=== PATIENT | female | born 1935 | race Caucasian/White ===

== ENCOUNTER 2016-09-07 15:08 | Observation (INO) ==
[2016-09-07] MEDS ORDERED: Ipratropium/Albuterol Neb 3 ML IH ONE (18:32)
[2016-09-07] MEDS ORDERED: methylPREDNISolone 125 MG/2 ML VIAL IV ONE (19:24)
[2016-09-07] MEDS ORDERED: Levofloxacin 750 MG/150 ML 750 MG/150 ML BAG IVPB ONE (19:24)
[2016-09-07 20:02] LABS: Basophils % 0.3 %; Eosinophils # 0.1 K/mcL (0.0-0.6); Eosinophils % 0.5 %; Hematocrit 44.8 % (35.3-44.9); Hemoglobin 14.5 g/dL (11.5-15.4); Immature Granulocytes % 0.8 % (0-4); Lymphocytes # 2.7 K/mcL (0.6-4.6); Lymphocytes % 24.8 %; Mean Corpuscular HGB Conc 32.4 g/dL (31.6-35.5); Mean Corpuscular Hemoglobin 27.9 pg (28.0-33.3); Mean Corpuscular Volume 86.3 fL (83.0-100.0); Mean Platelet Volume 10.8 fL (9.4-12.4); Monocytes # 1.1 K/mcL (0.0-1.3); Monocytes % 9.8 %; Neutrophils # 6.9 K/mcL (1.6-8.9); Platelet Count 297 K/mcL (140-400); Red Blood Count 5.19 M/mcL (3.82-4.97); Red Cell Distribution Width 13.6 % (11.5-14.5); Segmented Neutrophils % 63.8 %
[2016-09-07 20:10] LABS: INR 1.2; Prothrombin Time 12.6 Seconds (9.4-12.1)
[2016-09-07 20:13] LABS: Activated Partial Thrombo Time 27.4 Seconds (26.0-36.0)
[2016-09-07 20:16] LABS: Calcium 9.1 mg/dL (8.6-10.8)
[2016-09-07 20:17] LABS: Potassium 3.9 mEq/L (3.5-4.5)
--- NOTE | 2016-09-07 20:27 | Emergency Department Note ---
Disposition Clinical Impression: Acute exacerbation of chronic obstructive airways disease, Wheezing on auscultation, Influenza due to influenza virus, type B Disposition: Admitted As Inpatient Condition: Good Referrals: Jacob Bernstein MD [Primary Care Provider] - Forms: ED Satisfaction Letter SOB HPI - General Chief Complaint: ED Shortness of Breath/Dyspnea Stated Complaint: Flu,Congestion Time Seen by Provider: 09/07/16 18:32 Source: patient Limitations: no limitations Nursing Notes Reviewed: Yes Vital Signs Reviewed: Yes - History of Present Illness Patient is a 81-year-old female with a history of COPD presents with worsening symptoms for the last several days. On September 01 she was diagnosed with influenza B was prescribed Tamiflu and sent home. She continues to use reading treatments she does not have home oxygen she has had increasing shortness of breath cough and wheezing Onset (ago): day(s) (6) Context: recent illness Severity: moderate Consistency/Duration: constant, gradually worsening Improves with: rest, bronchodilators Worsens with: exertion Known history of: COPD Associated symptoms: Reports: cough, wheezing. Denies: chest pain, fever, sputum production, nausea/vomiting - Related Data Home Medications Medication Instructions Recorded Confirmed Clopidogrel 75 mg PO 09/01/16 Meclizine 25 mg PO 09/01/16 Nitrostat 09/01/16 Pravastatin Sodium 80 mg PO 09/01/16 Synthroid 75 mg PO 09/01/16 Temazepam 15 mg PO 09/01/16 Verapamil 240 mg PO 09/01/16 Previous Rx's Medication Instructions Recorded Guaifenesin/Codeine Phosphate 5 - 10 ml PO Q4-6H PRN #120 ml 09/01/16 [Guaifen-Codeine 100-10 mg/5 ml] Ipratropium/Albuterol Neb [Duoneb] 3 ml IH Q6H PRN #50 vial.neb 09/01/16 Nebulizer Accessories [Pillow Mask] 1 each MC PRN PRN #1 each 09/01/16 Oseltamivir [Tamiflu] 75 mg PO BID #10 capsule 09/01/16 Allergies Allergy/AdvReac Type Severity Reaction Status Date / Time Oxycodone [From OxyContin] AdvReac Hallucinati Verified 09/01/16 14:33 ng All systems ED: reviewed and negative except as stated. Constitutional: Denies: fever, chills Cardiovascular: Denies: chest pain Respiratory: Reports: cough Past Medical History - Past Medical History Source: patient, old records reviewed, obtained from family, nursing notes reviewed Medical history: Reports: coronary artery disease, hyperlipidemia, hypertension , thyroid disease Psychiatric history: Reports: no psych history - Social History Smoking Status: Current every day smoker Smokeless Tobacco Status: No Alcohol use: Reports: none Drug use: Reports: none Physical Exam - General Limitations: no limitations General appearance: alert, in no apparent distress - Head Head exam: atraumatic, normocephalic, normal inspection - Eye Eye exam: Present: normal appearance, PERRL, EOMI - Expanded Eye Exam Pupils: Left: reactive - ENT ENT exam: normal exam, normal oropharynx, mucous membranes moist - Expanded ENT Exam External ear exam: Present: normal external inspection Mouth exam: Present: normal external inspection Teeth exam: Present: normal inspection Throat exam: Present: normal inspection - Neck Neck exam: Present: normal inspection, full ROM, trachea midline - Chest Chest inspection: Present: normal inspection, symmetric chest wall rise - Respiratory Respiratory exam: Present: wheezes (Or wheezes and coarse rhonchi with a productive cough) - Cardiovascular Cardiovascular exam: Present: regular rate, normal rhythm, normal heart sounds - Abdominal Exam Abdominal exam: Present: soft, Non-Tender. Absent: tenderness, distention, guarding, rebound, rigidity - Extremities Exam Extremities exam: Present: normal inspection, full ROM. Absent: tenderness, pedal edema - Expanded Upper Extremity Exam Shoulder exam: Present: normal inspection, full ROM Arm exam: Present: normal inspection, full ROM Elbow exam: Present: normal inspection, full ROM Forearm/Wrist exam: Present: normal inspection, full ROM Hand exam: Present: normal inspection, full ROM Vascular exam: Normal: capillary refill, radial pulse - Expanded Lower Extremity Exam Hip/Pelvis exam: Present: normal inspection, full ROM Upper leg exam: Present: normal inspection, full ROM Knee exam: Present: normal inspection, full ROM Lower leg exam: Present: normal inspection, full ROM Ankle exam: Present: normal inspection, full ROM Foot/toe exam: Present: normal inspection, full ROM Neurovascular/Tendon exam: Absent: motor deficit, sensory deficit, tendon deficit - Back Exam Back exam: Present: normal inspection, full ROM. Absent: tenderness - Neurological Exam Neurological exam: Present: alert, oriented X3 - Expanded Neurological Exam Patient oriented to: Present: person, place, time Coma Scale Eye Opening: Spontaneous Coma Scale Motor Response: Obeys Commands Coma Scale Verbal Response: Oriented Coma Scale Total: 15 - Psychiatric Psychiatric exam: Present: normal affect, normal mood - Skin Skin exam: Present: warm, dry, intact, normal color Course Vital Signs Temperature 98.1 F 09/07/16 16:16 Pulse Rate 87 09/07/16 16:16 Respiratory Rate 18 09/07/16 16:16 Blood Pressure 166/84 09/07/16 16:16 O2 Sat by Pulse Oximetry 98 09/07/16 16:16 Temperature 98.1 F 09/07/16 16:16 Pulse Rate 87 09/07/16 16:16 Respiratory Rate 18 09/07/16 18:40 Blood Pressure 166/84 09/07/16 16:16 O2 Sat by Pulse Oximetry 108 H 09/07/16 18:40 Oxygen Delivery Oxygen Delivery Room Air Shortness of Breath/Dyspnea - Differential Diagnosis Likely: acute exacerbation of chronic obstructive airways disease, congestive heart failure, pneumonia, pulmonary embolism, arrhythmia - Medical Records Medical records reviewed: Yes I reviewed the patient's medical records. - Lab Data Lab results reviewed: Yes I reviewed the patient's lab results. Result diagrams: 09/07/16 19:40 09/07/16 19:40 Lab Results 09/07/16 09/07/16 09/07/16 Range/Units 19:40 19:40 19:40 WBC 10.7 (4.3-11.1) K/mcL RBC 5.19 H (3.82-4.97) M/mcL Hgb 14.5 (11.5-15.4) g/dL Hct 44.8 (35.3-44.9) % MCV 86.3 (83.0-100.0) fL MCH 27.9 L (28.0-33.3) pg MCHC 32.4 (31.6-35.5) g/dL RDW 13.6 (11.5-14.5) % Plt Count 297 (140-400) K/mcL MPV 10.8 (9.4-12.4) fL Immature Gran % 0.8 (0-4) % Seg Neutrophils % 63.8 % Lymphocytes % 24.8 % Monocytes % 9.8 % Eosinophils % 0.5 % Basophils % 0.3 % Neutrophils # 6.9 (1.6-8.9) K/mcL Lymphocytes # 2.7 (0.6-4.6) K/mcL Monocytes # 1.1 (0.0-1.3) K/mcL Eosinophils # 0.1 (0.0-0.6) K/mcL Basophils # 0.0 (0.0-0.2) K/mcL PT (9.4-12.1) Seconds INR APTT (26.0-36.0) Seconds Sodium 140 (136-145) mEq/L Potassium 3.9 (3.5-4.5) mEq/L Chloride 106 (98-109) mEq/L Carbon Dioxide 19 (19-29) mEq/L BUN 23 H (7-20) mg/dL Creatinine 1.28 H (0.57-1.11) mg/dL Est GFR ( Amer) 48 L (> 60) Est GFR (Non-Af Amer) 40 L (> 60) BUN/Creatinine Ratio 18 (6-26) Glucose 109 H (70-99) mg/dL Calculated Osmolality 294 (280-300) Calcium 9.1 (8.6-10.8) mg/dL Troponin I 0.01 (0-0.03) ng/mL B-Natriuretic Peptide (0-100) pg/mL 09/07/16 09/07/16 Range/Units 19:40 19:40 WBC (4.3-11.1) K/mcL RBC (3.82-4.97) M/mcL Hgb (11.5-15.4) g/dL Hct (35.3-44.9) % MCV (83.0-100.0) fL MCH (28.0-33.3) pg MCHC (31.6-35.5) g/dL RDW (11.5-14.5) % Plt Count (140-400) K/mcL MPV (9.4-12.4) fL Immature Gran % (0-4) % Seg Neutrophils % % Lymphocytes % % Monocytes % % Eosinophils % % Basophils % % Neutrophils # (1.6-8.9) K/mcL Lymphocytes # (0.6-4.6) K/mcL Monocytes # (0.0-1.3) K/mcL Eosinophils # (0.0-0.6) K/mcL Basophils # (0.0-0.2) K/mcL PT 12.6 H (9.4-12.1) Seconds INR 1.2 APTT 27.4 (26.0-36.0) Seconds Sodium (136-145) mEq/L Potassium (3.5-4.5) mEq/L Chloride (98-109) mEq/L Carbon Dioxide (19-29) mEq/L BUN (7-20) mg/dL Creatinine (0.57-1.11) mg/dL Est GFR ( Amer) (> 60) Est GFR (Non-Af Amer) (> 60) BUN/Creatinine Ratio (6-26) Glucose (70-99) mg/dL Calculated Osmolality (280-300) Calcium (8.6-10.8) mg/dL Troponin I (0-0.03) ng/mL B-Natriuretic Peptide 25 (0-100) pg/mL - Radiology Data Radiology results reviewed: Yes I reviewed the patient's radiology results. - EKG Data EKG attestation: Yes I reviewed and interpreted this EKG. EKG shows normal: Reports: sinus rhythm Rate: Reports: tachycardia (110) Interpretation: Reports: nonspecific ST-T wave changes
[2016-09-07] MEDS ORDERED: Naloxone 0.4 MG/ML INJ IVP PRN (23:13)
[2016-09-07] MEDS ORDERED: Ibuprofen 400 MG TABLET PO PRN (23:13)
[2016-09-07] MEDS ORDERED: Ondansetron ODT 4 MG TAB.RAPDIS SL PRN (23:13)
[2016-09-07] MEDS ORDERED: Nitroglycerin 0.4 MG TAB.SUBL SL PRN (23:16)
[2016-09-07] MEDS ORDERED: Albuterol 2.5 MG/3 ML NEBULIZER IH PRN (23:19)
--- NOTE | 2016-09-07 23:33 | Internal Med History&Physical ---
Date of Encounter: 09/07/16 Time of Encounter: 23:27 Assessment and Plan (1) Acute exacerbation of chronic obstructive airways disease Current visit: Yes Status: Acute Patient with increasing shortness of breath, cough and wheezing over the last week. She was diagnosed with Influenza B at an urgent care on 09/01 and completed her course of Tamiflu. She has a diagnosis of COPD and continued to smoke up until she became ill with the flu last week. Solu medrol 60mg IVP BID duoneb treatments QIDR Albuterol nebulizer Q2hr PRN Levaquin IVPB daily (2) Acute kidney injury Current visit: Yes Status: Acute BUN/Cr of 23/1.28, Creatinine baseline is 0.9. This is likely due to poor oral intake and dehydration. Will hydrate with 0.9NS at 100mL/hr overnight and recheck chemistry in the morning. (3) Dehydration Current visit: Yes Status: Acute Patient reports poor appetite and poor oral intake over the last week. BUN/Cr 23/1.28. Will hydrate with 0.9NS at 100mL/hr. (4) DVT prophylaxis Current visit: Yes Status: Acute Encourage ambulation anti-embolic stockings lovenox 40mg SQ daily Internal Medicine - H&P: HPI Chief complaint: shortness of breath Admitted From: Emergency Dept Plans for Post Hospital Care: Home History of present illness: Ms. Ellington is a 81 year old female with history of coronary artery disease, hypertension, hyperlipidemia, hypothyroid, COPD who presented to the emergency department today with complaints of increasing shortness of breath cough and wheezing. She was seen in the urgent care a week ago on September 01 and was diagnosed with influenza B, she completed her course of Tamiflu, unfortunately her symptoms of coughing and shortness of breath have increased over the last week. She reports she has had fever and chills on and off, her appetite is poor , and she has had some nausea. She denies any chest pain, palpitations, headache, vomiting, or diarrhea. Evaluation in the emergency department included a chest x-ray which showed no acute process, EKG showed sinus tachycardia with heart rate of 110, troponin was negative at 0.01, BNP was negative at 25. Count was normal at 10.7. She had mild acute kidney injury with creatinine of 1.28 BUN of 23, likely due to dehydration and poor oral intake. She does not require oxygen at home, she was satting 92% on room air on presentation. On exam, she is alert and oriented, in no acute distress. Heart has regular rate and rhythm. Lungs with diffuse rhonchi bilaterally. Past Med Surg Social Fam HX - Past Medical History Medical history: COPD, coronary artery disease, hyperlipidemia, hypertension, thyroid disease Psychiatric history: no psych history - Past Surgical History Surgical History: hysterectomy, knee replacement - Social History Smoking Status: Former smoker (quit 09/01/2016) Smokeless Tobacco Status: No Alcohol use: none Drug use: none - Family History Mother Living Status: Cause of : breast cancer Father Age: 60 Living Status: Cause of : stroke Internal Medicine - H&P: Meds Acetaminophen [Tylenol] 500 mg PO HS 09/07/16 [History] Clopidogrel [Plavix] 75 mg PO DAILY 09/07/16 [History] Ezetimibe [Zetia] 10 mg PO DAILY 09/07/16 [History] Levothyroxine Sodium 75 mcg PO QAM 09/07/16 [History] Nitroglycerin [Nitrostat] 0.4 mg SL Q5M PRN 09/07/16 [History] Pravastatin Sodium [Pravastatin Sodium] 80 mg PO DAILY 09/07/16 [History] Temazepam [Temazepam] 30 mg PO HS 09/07/16 [History] Verapamil ER (24 HR) [Calan SR] 240 mg PO DAILY 09/07/16 [History] Allergies Oxycodone [From OxyContin] Adverse Reaction (Verified 09/01/16 14:33) Hallucinating All Systems PM: A 10-system review of systems was performed and is negative for pertinent findings except as documented above in the HPI. - Constitutional Constitutional: chills, fatigue, fever(s), no night sweats - EENT Eyes: no change in vision, no discharge, no pain, no photophobia Ears: no ear discharge, no ear pain, no tinnitus Nose, mouth and throat: nasal discharge, no dysphagia, no neck pain, no sore throat - Cardiovascular Cardiovascular ROS IM: dyspnea, no chest pain, no diaphoresis, no lightheadedness, no palpitations, no syncope - Respiratory Respiratory: cough, dyspnea, dyspnea on exertion, wheezing, excessive phlegm production - Gastrointestinal Gastrointestinal: no abdominal pain, no diarrhea, no hematemesis, no hematochezia, no melena, no nausea, no vomiting - Genitourinary Genitourinary: no change in urinary stream, no dysuria, no flank pain, no hematuria - Musculoskeletal Musculoskeletal ROS IM: no numbness, no tingling - Integumentary Integumentary IM: no rash, no unusual bruising - Neurological Neurological ROS: no confusion, no convulsions, no focal weakness, no numbness, no tingling, no tremor(s) - Hematologic/Lymphatic Hematologic/Lymphatic: no easy bruising - Constitutional Vitals: Temp Pulse Resp BP Pulse Ox 98.1 F 97 18 146/78 92 L 09/07/16 21:54 09/07/16 21:54 09/07/16 21:54 09/07/16 21:54 09/07/16 21:54 General appearance: Present: A&O X 3, no acute distress - Head Head exam: Present: atraumatic, normocephalic - Eye Eye exam: Present: PERRL, conjuntiva pink, sclera anicteric Pupils: Present: PERRL - Neck Neck exam general surgery: Present: supple, trachea midline. Absent: lymphadenopathy - Respiratory Respiratory exam: Present: rhonchi, wheezes. Absent: accessory muscle use, rales - Cardiovascular Cardiovascular exam: Present: RRR, +S1, +S2. Absent: diastolic murmur, gallop, rubs, systolic murmur - GI/Abdominal GI/Abdominal exam: Present: normal bowel sounds, soft, no peritoneal signs. Absent: distended, tenderness - Extremities Exam Extremities exam: Present: warm, radial pulses palpable and symetrical. Absent : calf tenderness, cyanotic, pedal edema - Neurological Exam Neurological exam: Present: CN II-XII intact, oriented X3, no focal deficits. Absent: facial droop, speech deficit - Skin Skin exam: Present: dry, intact Internal Med - H&P Results - Labs CBC & Chem 7: 09/07/16 19:40 09/07/16 19:40 Labs: All Lab Results (24 Hours) 09/07/16 09/07/16 09/07/16 Range/Units 19:40 19:40 19:40 WBC 10.7 (4.3-11.1) K/mcL RBC 5.19 H (3.82-4.97) M/mcL Hgb 14.5 (11.5-15.4) g/dL Hct 44.8 (35.3-44.9) % MCV 86.3 (83.0-100.0) fL MCH 27.9 L (28.0-33.3) pg MCHC 32.4 (31.6-35.5) g/dL RDW 13.6 (11.5-14.5) % Plt Count 297 (140-400) K/mcL MPV 10.8 (9.4-12.4) fL Immature Gran % 0.8 (0-4) % Seg Neutrophils % 63.8 % Lymphocytes % 24.8 % Monocytes % 9.8 % Eosinophils % 0.5 % Basophils % 0.3 % Neutrophils # 6.9 (1.6-8.9) K/mcL Lymphocytes # 2.7 (0.6-4.6) K/mcL Monocytes # 1.1 (0.0-1.3) K/mcL Eosinophils # 0.1 (0.0-0.6) K/mcL Basophils # 0.0 (0.0-0.2) K/mcL PT (9.4-12.1) Seconds INR APTT (26.0-36.0) Seconds Sodium 140 (136-145) mEq/L Potassium 3.9 (3.5-4.5) mEq/L Chloride 106 (98-109) mEq/L Carbon Dioxide 19 (19-29) mEq/L BUN 23 H (7-20) mg/dL Creatinine 1.28 H (0.57-1.11) mg/dL Est GFR ( Amer) 48 L (> 60) Est GFR (Non-Af Amer) 40 L (> 60) BUN/Creatinine Ratio 18 (6-26) Glucose 109 H (70-99) mg/dL Calculated Osmolality 294 (280-300) Calcium 9.1 (8.6-10.8) mg/dL Troponin I 0.01 (0-0.03) ng/mL B-Natriuretic Peptide (0-100) pg/mL 09/07/16 09/07/16 Range/Units 19:40 19:40 WBC (4.3-11.1) K/mcL RBC (3.82-4.97) M/mcL Hgb (11.5-15.4) g/dL Hct (35.3-44.9) % MCV (83.0-100.0) fL MCH (28.0-33.3) pg MCHC (31.6-35.5) g/dL RDW (11.5-14.5) % Plt Count (140-400) K/mcL MPV (9.4-12.4) fL Immature Gran % (0-4) % Seg Neutrophils % % Lymphocytes % % Monocytes % % Eosinophils % % Basophils % % Neutrophils # (1.6-8.9) K/mcL Lymphocytes # (0.6-4.6) K/mcL Monocytes # (0.0-1.3) K/mcL Eosinophils # (0.0-0.6) K/mcL Basophils # (0.0-0.2) K/mcL PT 12.6 H (9.4-12.1) Seconds INR 1.2 APTT 27.4 (26.0-36.0) Seconds Sodium (136-145) mEq/L Potassium (3.5-4.5) mEq/L Chloride (98-109) mEq/L Carbon Dioxide (19-29) mEq/L BUN (7-20) mg/dL Creatinine (0.57-1.11) mg/dL Est GFR ( Amer) (> 60) Est GFR (Non-Af Amer) (> 60) BUN/Creatinine Ratio (6-26) Glucose (70-99) mg/dL Calculated Osmolality (280-300) Calcium (8.6-10.8) mg/dL Troponin I (0-0.03) ng/mL B-Natriuretic Peptide 25 (0-100) pg/mL
[2016-09-08] MEDS: Ipratropium/Albuterol Neb 3 ML IH SCH ×5 (00:16→22:01)
[2016-09-08] MEDS: Temazepam 15 MG CAPSULE PO SCH ×2 (01:08→20:04)
[2016-09-08] MEDS: 0.9 % Sodium Chloride 1,000 ML IVC SCH ×2 (01:21→13:40)
--- NOTE | 2016-09-08 03:05 | Event Note ---
Date of Encounter: 09/08/16 Time of Encounter: 02:38 Patients examined with nurse practitioner. Patients recently treated with Tamiflu for influenza. Continues to have productive cough shortness of breath and chest wheezing. Patient has acute bronchitis and exacerbation of her COPD. Will give IV steroids [id number] nebulizer treatment and Levaquin for acute bronchitis as she is a COPDer.
[2016-09-08] MEDS: MethylPREDNISolone 40 MG/ML VIAL IVP SCH ×3 (03:22→20:02)
[2016-09-08 05:30] LABS: Basophils % 0.1 %; Hematocrit 41.8 % (35.3-44.9); Hemoglobin 13.2 g/dL (11.5-15.4); Immature Granulocytes % 0.8 % (0-4); Lymphocytes # 0.9 K/mcL (0.6-4.6); Lymphocytes % 11.1 %; Mean Corpuscular HGB Conc 31.6 g/dL (31.6-35.5); Mean Corpuscular Hemoglobin 27.4 pg (28.0-33.3); Mean Corpuscular Volume 86.7 fL (83.0-100.0); Mean Platelet Volume 10.6 fL (9.4-12.4); Monocytes # 0.2 K/mcL (0.0-1.3); Monocytes % 2.2 %; Neutrophils # 6.8 K/mcL (1.6-8.9); Platelet Count 275 K/mcL (140-400); Red Blood Count 4.82 M/mcL (3.82-4.97); Red Cell Distribution Width 13.5 % (11.5-14.5); Segmented Neutrophils % 85.8 %
[2016-09-08 05:55] LABS: Calcium 8.2 mg/dL (8.6-10.8); Potassium 4.2 mEq/L (3.5-4.5)
[2016-09-08] MEDS: *HR* Heparin 5,000 UNIT/ML VIAL SQ SCH ×2 (05:56→20:03)
[2016-09-08] MEDS ORDERED: methylPREDNISolone 125 MG/2 ML VIAL IVP SCH (06:00)
[2016-09-08] MEDS ORDERED: *HR* Enoxaparin 40 MG/0.4 ML SYRINGE SQ SCH (07:00)
[2016-09-08] MEDS ORDERED: Levofloxacin 750 MG/150 ML 750 MG/150 ML BAG IVPB SCH (09:00)
[2016-09-08] MEDS: (Ezetimibe [Zetia] 10 MG) PO SCH (11:08)
[2016-09-08] MEDS: Verapamil ER (24 HR) 240 MG TABLET.ER PO SCH (11:18)
--- NOTE | 2016-09-08 13:50 | Electrocardiograph Report ---
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
--- NOTE | 2016-09-08 14:38 | Internal Med Progress Note ---
<Michele Donovan - Last Filed: 09/08/16 14:35> Date of Encounter: 09/08/16 Time of Encounter: 14:35 - Assessment and plan (1) Acute exacerbation of chronic obstructive airways disease Current Visit: Yes Status: Acute Assessment and plan: Secondary to influenza, type B. Patient had received Tamiflu one week ago. Since then her shortness of breath and productive cough have worsened. History of tobacco abuse. Patient says she quit 10 days ago. Continue DuoNeb's, Solu-Medrol, Levaquin. On Room air O2 is 94%. Possible d/c tomorrow continue cardiac diet. (2) Acute kidney injury Current Visit: Yes Status: Acute Assessment and plan: most likely 2nd to dehydration. Patient says her appetite has been decreased due to cough and she has had lots of nausea with oral intake. Zofran prn for nausea. Baseline scr 1.0 presented with Scr of 1.28 Improved to 1.19 with IVF. Will continue IVF cardiac diet. BMP in morning. Retreperitoneal US. (3) Influenza due to influenza virus, type B Current Visit: Yes Status: Acute Assessment and plan: Went to urgent care 7 dyas ago and was diagnosed with influenza type B has received tamiflu we can d/c respiratory precautions continue IVF zofran for nausea (4) CAD (coronary artery disease) Current Visit: Yes Status: Chronic Assessment and plan: Patient denies chest pain. History of coronary disease. Troponin normal. We will continue Plavix, statin, verapamil. Qualifiers: Coronary Disease-Associated Artery/Lesion type: [place] artery [place] vs. transplanted heart: [place] heart Associated angina: without angina Qualified Code(s): I25.10 - Atherosclerotic heart disease of [place] coronary artery without angina pectoris (5) Hypothyroidism Current Visit: Yes Status: Chronic Assessment and plan: Controlled. Continue levothyroxine. Qualifiers: Hypothyroidism type: acquired Qualified Code(s): E03.9 - Hypothyroidism, unspecified (6) Hypertension Current Visit: Yes Status: Chronic Assessment and plan: Controlled. Continue verapamil. Qualifiers: Hypertension type: essential hypertension Qualified Code(s): I10 - Essential (primary) hypertension (7) DVT prophylaxis Current Visit: Yes Status: Acute Assessment and plan: continue heparin. - Subjective Interval history: 81-year-old female admitted for COPD exacerbation secondary to influenza. Since being admitted patient says her shortness of breath is improved. She still complains of having productive cough. She also complains of decreased appetite and nausea associated with her cough. She denies chest pain, abdominal pain, diarrhea. - Constitutional Vitals: Temp Pulse Resp BP Pulse Ox 97.8 F 100 17 149/73 94 L 09/08/16 12:27 09/08/16 12:27 09/08/16 12:27 09/08/16 12:27 09/08/16 12:27 General appearance: Present: A&O X 3, no acute distress, answers questions appropriately - Respiratory Respiratory exam: Present: decreased breath sounds, rhonchi (Worse on right lung field), wheezes. Absent: accessory muscle use, rales - Cardiovascular Cardiovascular exam: Present: +S1, +S2, tachycardia - GI/Abdominal GI/Abdominal exam: Present: normal bowel sounds, soft, no peritoneal signs. Absent: distended, tenderness - Extremities Exam Extremities exam: Present: warm, radial pulses palpable and symetrical. Absent : calf tenderness, cyanotic, pedal edema Internal Medicine: Result - Labs CBC & Chem 7: 09/08/16 05:16 09/08/16 05:16 Labs: Short CBC 09/08/16 Range/Units 05:16 WBC 7.9 (4.3-11.1) K/mcL Hgb 13.2 (11.5-15.4) g/dL Hct 41.8 (35.3-44.9) % Plt Count 275 (140-400) K/mcL Neutrophils # 6.8 (1.6-8.9) K/mcL BMP 09/08/16 05:16 Sodium 140 Potassium 4.2 Chloride 107 Carbon Dioxide 22 BUN 22 H Creatinine 1.19 H Glucose 166 H Calcium 8.2 L - ABG Interpretation ABG results: PT/INR, D-dimer PT 12.6 Seconds (9.4-12.1) H 09/07/16 19:40 - VTE Documentation of Mechanical Device: Graduated compression elastic hosiery Consult Discharge Plan - Plan Referrals: Jacob Bernstein MD [Primary Care Provider] - 01/26/17 9:20 am <Arnold Rodriguez - Last Filed: 09/08/16 17:20> - Constitutional Vitals: Temp Pulse Resp BP Pulse Ox 97.8 F 100 17 149/73 94 L 09/08/16 12:27 09/08/16 12:27 09/08/16 12:27 09/08/16 12:27 09/08/16 12:27 Internal Medicine: Result - Labs CBC & Chem 7: 09/08/16 05:16 09/08/16 05:16 Labs: Short CBC 09/08/16 Range/Units 05:16 WBC 7.9 (4.3-11.1) K/mcL Hgb 13.2 (11.5-15.4) g/dL Hct 41.8 (35.3-44.9) % Plt Count 275 (140-400) K/mcL Neutrophils # 6.8 (1.6-8.9) K/mcL BMP 09/08/16 05:16 Sodium 140 Potassium 4.2 Chloride 107 Carbon Dioxide 22 BUN 22 H Creatinine 1.19 H Glucose 166 H Calcium 8.2 L - ABG Interpretation ABG results: PT/INR, D-dimer PT 12.6 Seconds (9.4-12.1) H 09/07/16 19:40 - Attending Attestation I examined this patient and my medical decision-making was reviewed with the BLACK PULLER/PA/Advanced Practice Nurse/Resident Physician. I agree with the documented findings, disposition and treatment plan as described except to the extent set forth below 81 year old female with history of coronary artery disease, hypertension, hyperlipidemia, hypothyroid, COPD Patient is admitted and being managed for COPDE, MITUL She is seen at bedside with resident, states she is making adequate urine She denies new complains Physical exam remarkable for diffuse coarse breath sounds, not wheezing at time of review Plan: Continue IVF Monitor Chem, Obain renal USS, Encourage smoking cessation. Continue current management, taper steroids from a.m Resume home meds Rest as in resident's notes, plan of care discussed with patient, verbalized understanding
[2016-09-09] MEDS: MethylPREDNISolone 40 MG/ML VIAL IVP SCH (03:43)
[2016-09-09] MEDS: Ipratropium/Albuterol Neb 3 ML IH SCH ×4 (04:25→22:34)
[2016-09-09 06:46] LABS: Basophils % 0.1 %; Hematocrit 38.5 % (35.3-44.9); Hemoglobin 12.4 g/dL (11.5-15.4); Immature Granulocytes % 0.9 % (0-4); Immature Platelets 8.8 % (1.1-6.1); Lymphocytes # 1.4 K/mcL (0.6-4.6); Lymphocytes % 8.1 %; Mean Corpuscular HGB Conc 32.2 g/dL (31.6-35.5); Mean Corpuscular Hemoglobin 27.9 pg (28.0-33.3); Mean Corpuscular Volume 86.5 fL (83.0-100.0); Mean Platelet Volume 11.1 fL (9.4-12.4); Monocytes # 0.8 K/mcL (0.0-1.3); Monocytes % 4.8 %; Platelet Count 328 K/mcL (140-400); Red Blood Count 4.45 M/mcL (3.82-4.97); Red Cell Distribution Width 13.5 % (11.5-14.5); Segmented Neutrophils % 86.1 %
[2016-09-09 06:47] LABS: Neutrophils # 14.6 K/mcL (1.6-8.9)
[2016-09-09] MEDS: *HR* Heparin 5,000 UNIT/ML VIAL SQ SCH ×2 (06:50→17:51)
[2016-09-09 07:01] LABS: Potassium 3.5 mEq/L (3.5-4.5)
[2016-09-09 07:02] LABS: Calcium 8.1 mg/dL (8.6-10.8)
[2016-09-09 08:38] LABS: Basophils % 0.1 %; Hematocrit 39.3 % (35.3-44.9); Hemoglobin 12.7 g/dL (11.5-15.4); Immature Granulocytes % 1.8 % (0-4); Lymphocytes # 1.6 K/mcL (0.6-4.6); Lymphocytes % 8.6 %; Mean Corpuscular HGB Conc 32.3 g/dL (31.6-35.5); Mean Corpuscular Hemoglobin 28.1 pg (28.0-33.3); Mean Corpuscular Volume 86.9 fL (83.0-100.0); Mean Platelet Volume 10.6 fL (9.4-12.4); Monocytes % 5.5 %; Neutrophils # 15.6 K/mcL (1.6-8.9); Platelet Count 349 K/mcL (140-400); Red Blood Count 4.52 M/mcL (3.82-4.97); Red Cell Distribution Width 13.5 % (11.5-14.5)
[2016-09-09 08:48] LABS: Calcium 8.3 mg/dL (8.6-10.8); Potassium 3.6 mEq/L (3.5-4.5)
[2016-09-09] MEDS ORDERED: levoFLOXacin 500 MG TABLET PO SCH (09:00)
[2016-09-09] MEDS: Verapamil ER (24 HR) 240 MG TABLET.ER PO SCH (09:06)
[2016-09-09] MEDS: predniSONE 20 MG TABLET PO SCH (09:06)
[2016-09-09] MEDS: (Ezetimibe [Zetia] 10 MG) PO SCH (09:06)
--- NOTE | 2016-09-09 13:26 | Internal Med Progress Note ---
<Michele Donovan - Last Filed: 09/09/16 13:04> Date of Encounter: 09/09/16 Time of Encounter: 13:04 - Assessment and plan (1) Acute exacerbation of chronic obstructive airways disease Current Visit: Yes Status: Acute Assessment and plan: Secondary to influenza, type B. Patient had received Tamiflu one week ago. Since then her shortness of breath and productive cough have worsened. History of tobacco abuse. Patient says she quit 10 days ago. Continue DuoNeb's, Solu-Medrol, Levaquin. On Room air O2 is 94%. continue cardiac diet. Patient had new onset of leukocytosis. Most likley 2nd to corticosteroid therapy. CBC tomorrow. (2) Acute kidney injury Current Visit: Yes Status: Acute Assessment and plan: most likely 2nd to dehydration. Patient says her appetite has been decreased due to cough and she has had lots of nausea with oral intake. Zofran prn for nausea. Baseline scr 1.0 presented with Scr of 1.28 wrosened from 1.19 to 1.26 Will continue IVF cardiac diet. BMP in morning. Retreperitoneal US wnl. (3) Influenza due to influenza virus, type B Current Visit: Yes Status: Acute Assessment and plan: Went to urgent care 7 dyas ago and was diagnosed with influenza type B has received tamiflu we can d/c respiratory precautions continue IVF zofran for nausea (4) CAD (coronary artery disease) Current Visit: Yes Status: Chronic Assessment and plan: Patient denies chest pain. History of coronary disease. Troponin normal. We will continue Plavix, statin, verapamil. Qualifiers: Coronary Disease-Associated Artery/Lesion type: [place] artery [place] vs. transplanted heart: [place] heart Associated angina: without angina Qualified Code(s): I25.10 - Atherosclerotic heart disease of [place] coronary artery without angina pectoris (5) Hypothyroidism Current Visit: Yes Status: Chronic Assessment and plan: Controlled. Continue levothyroxine. Qualifiers: Hypothyroidism type: acquired Qualified Code(s): E03.9 - Hypothyroidism, unspecified (6) Hypertension Current Visit: Yes Status: Chronic Assessment and plan: Controlled. Continue verapamil. Qualifiers: Hypertension type: essential hypertension Qualified Code(s): I10 - Essential (primary) hypertension (7) DVT prophylaxis Current Visit: Yes Status: Acute Assessment and plan: continue heparin. - Subjective Interval history: 81-year-old female admitted for COPD exacerbation secondary to influenza. She denies chest pain, abdominal pain, diarrhea. She says her sob has improved. She would liked to be d/c. - Constitutional Vitals: Temp Pulse Resp BP Pulse Ox 98.3 F 74 16 147/83 96 09/09/16 10:26 09/09/16 10:26 09/09/16 10:26 09/09/16 10:26 09/09/16 10:26 General appearance: Present: A&O X 3, no acute distress, answers questions appropriately - Respiratory Respiratory exam: Present: CTAB, wheezes. Absent: rales, rhonchi - Cardiovascular Cardiovascular exam: Present: RRR, +S1, +S2. Absent: diastolic murmur, gallop, rubs, systolic murmur - GI/Abdominal GI/Abdominal exam: Present: normal bowel sounds, soft, no peritoneal signs. Absent: distended, tenderness - Extremities Exam Extremities exam: Present: warm, radial pulses palpable and symetrical. Absent : calf tenderness, cyanotic, pedal edema Internal Medicine: Result - Labs CBC & Chem 7: 09/09/16 08:31 09/09/16 08:31 Labs: Short CBC 09/09/16 09/09/16 Range/Units 06:08 08:31 WBC 17.0 H D 18.6 H (4.3-11.1) K/mcL Hgb 12.4 12.7 (11.5-15.4) g/dL Hct 38.5 39.3 (35.3-44.9) % Plt Count 328 349 (140-400) K/mcL Neutrophils # 14.6 H 15.6 H (1.6-8.9) K/mcL BMP 09/09/16 09/09/16 04:46 08:31 Sodium 140 140 Potassium 3.5 3.6 Chloride 109 108 Carbon Dioxide 21 22 BUN 23 H 23 H Creatinine 1.25 H 1.28 H Glucose 189 H 190 H Calcium 8.1 L 8.3 L - ABG Interpretation ABG results: PT/INR, D-dimer PT 12.6 Seconds (9.4-12.1) H 09/07/16 19:40 - Impressions Impressions Retroperitoneum Ultrasound 09/08/16 18:30 IMPRESSION: Unremarkable ultrasound of the kidneys and urinary bladder. D/ / Sravan Goode MD / Sravan Goode MD Interpreting Provider: Sravan Goode MD - VTE Documentation of Mechanical Device: Graduated compression elastic hosiery Consult Discharge Plan - Plan Referrals: Jacob Bernstein MD [Primary Care Provider] - 01/26/17 9:20 am <Arnold Rodriguez T - Last Filed: 09/09/16 16:36> - Constitutional Vitals: Temp Pulse Resp BP Pulse Ox 97.8 F 85 19 135/75 95 09/09/16 15:38 09/09/16 15:38 09/09/16 15:38 09/09/16 15:38 09/09/16 15:38 Internal Medicine: Result - Labs CBC & Chem 7: 09/09/16 08:31 09/09/16 08:31 Labs: Short CBC 09/09/16 09/09/16 Range/Units 06:08 08:31 WBC 17.0 H D 18.6 H (4.3-11.1) K/mcL Hgb 12.4 12.7 (11.5-15.4) g/dL Hct 38.5 39.3 (35.3-44.9) % Plt Count 328 349 (140-400) K/mcL Neutrophils # 14.6 H 15.6 H (1.6-8.9) K/mcL BMP 09/09/16 09/09/16 04:46 08:31 Sodium 140 140 Potassium 3.5 3.6 Chloride 109 108 Carbon Dioxide 21 22 BUN 23 H 23 H Creatinine 1.25 H 1.28 H Glucose 189 H 190 H Calcium 8.1 L 8.3 L - ABG Interpretation ABG results: PT/INR, D-dimer PT 12.6 Seconds (9.4-12.1) H 09/07/16 19:40 - Impressions Impressions Retroperitoneum Ultrasound 09/08/16 18:30 IMPRESSION: Unremarkable ultrasound of the kidneys and urinary bladder. D/ / Sravan Goode MD / Sravan Goode MD Interpreting Provider: Sravan Goode MD - Attending Attestation I examined this patient and my medical decision-making was reviewed with the SOFTLINES SUPERVISOR/PA/Advanced Practice Nurse/Resident Physician. I agree with the documented findings, disposition and treatment plan as described except to the extent set forth below 81 year old female with history of coronary artery disease, hypertension, hyperlipidemia, hypothyroid, COPD Patient is admitted and being managed for COPDE, MITUL She is seen at bedside , sitting out of bed to chair She denies new complains Physical exam remarkable for diffuse coarse breath sounds, not wheezing at time of review labs reviewed: New leukocytosis possibly from steroids, Slightly elevated Creatinine , Renal USS showed normal kidneys Plan: Continue IVF, Monitor Chem, Continue duonebs, continue prednisone, monitor closely Anticipate d/c a.m based on clinical response and lab findings
[2016-09-09] MEDS: 0.9 % Sodium Chloride 1,000 ML IVC SCH (13:41)
[2016-09-09] MEDS: Temazepam 15 MG CAPSULE PO SCH (20:25)
[2016-09-10] MEDS: 0.9 % Sodium Chloride 1,000 ML IVC SCH (04:00)
[2016-09-10] MEDS: Ipratropium/Albuterol Neb 3 ML IH SCH ×3 (04:11→16:25)
[2016-09-10 04:51] LABS: Basophils % 0.1 %; Hematocrit 36.6 % (35.3-44.9); Hemoglobin 11.8 g/dL (11.5-15.4); Immature Granulocytes % 1.9 % (0-4); Lymphocytes # 1.4 K/mcL (0.6-4.6); Lymphocytes % 8.2 %; Mean Corpuscular HGB Conc 32.2 g/dL (31.6-35.5); Mean Corpuscular Hemoglobin 28.4 pg (28.0-33.3); Mean Corpuscular Volume 88.2 fL (83.0-100.0); Monocytes # 1.4 K/mcL (0.0-1.3); Monocytes % 7.8 %; Neutrophils # 14.4 K/mcL (1.6-8.9); Platelet Count 361 K/mcL (140-400); Red Blood Count 4.15 M/mcL (3.82-4.97); Red Cell Distribution Width 13.6 % (11.5-14.5)
[2016-09-10 04:58] LABS: Calcium 7.8 mg/dL (8.6-10.8); Potassium 4.2 mEq/L (3.5-4.5)
[2016-09-10] MEDS: *HR* Heparin 5,000 UNIT/ML VIAL SQ SCH (05:59)
[2016-09-10] MEDS ORDERED: Aspirin 325 MG TABLET PO ONE (08:40)
[2016-09-10] MEDS ORDERED: levoFLOXacin 250 MG TABLET PO SCH (09:00)
[2016-09-10] MEDS ORDERED: Levofloxacin 750 MG/150 ML 750 MG/150 ML BAG IVPB SCH (09:00)
[2016-09-10] MEDS: Verapamil ER (24 HR) 240 MG TABLET.ER PO SCH (09:05)
[2016-09-10] MEDS: predniSONE 20 MG TABLET PO SCH (09:05)
[2016-09-10] MEDS: (Ezetimibe [Zetia] 10 MG) PO SCH (09:07)
[2016-09-10] MEDS ORDERED: 0.9 % Sodium Chloride 500 ML IVC ONE (11:30)
[2016-09-10 14:47] VITALS: BP 144/72
--- NOTE | 2016-09-10 14:52 | Discharge Summary ---
<Michele Donovan - Last Filed: 09/10/16 15:58> Date of Encounter: 09/10/16 Time of Encounter: 14:50 - Discharge Diagnosis (1) Acute exacerbation of chronic obstructive airways disease Priority: Primary Status: Acute (2) Acute kidney injury Priority: Secondary Status: Acute (3) Influenza due to influenza virus, type B Priority: Secondary Status: Acute (4) CAD (coronary artery disease) Priority: Secondary Status: Chronic Qualifiers: Coronary Disease-Associated Artery/Lesion type: [place] artery [place] vs. transplanted heart: [place] heart Associated angina: without angina Qualified Code(s): I25.10 - Atherosclerotic heart disease of [place] coronary artery without angina pectoris (5) Hypothyroidism Priority: Secondary Status: Chronic Qualifiers: Hypothyroidism type: acquired Qualified Code(s): E03.9 - Hypothyroidism, unspecified (6) Hypertension Priority: Secondary Status: Chronic Qualifiers: Hypertension type: essential hypertension Qualified Code(s): I10 - Essential (primary) hypertension (7) DVT prophylaxis Priority: Secondary Status: Acute - Discharge Medications Prescriptions: Levofloxacin [Levaquin] 250 mg PO DAILY #1 tablet PredniSONE 40 mg PO DAILY #1 tablet Home Medications: Acetaminophen [Tylenol] 500 mg PO HS 09/07/16 [History] Clopidogrel [Plavix] 75 mg PO DAILY 09/07/16 [History] Ezetimibe [Zetia] 10 mg PO DAILY 09/07/16 [History] Levothyroxine Sodium 75 mcg PO QAM 09/07/16 [History] Nitroglycerin [Nitrostat] 0.4 mg SL Q5M PRN 09/07/16 [History] Pravastatin Sodium 80 mg PO DAILY 09/07/16 [History] Temazepam 30 mg PO HS 09/07/16 [History] Verapamil ER (24 HR) [Calan SR] 240 mg PO DAILY 09/07/16 [History] Levofloxacin [Levaquin] 250 mg PO DAILY #1 tablet 09/10/16 [Rx] PredniSONE 40 mg PO DAILY #1 tablet 09/10/16 [Rx] Allergies/Adverse Reactions: Allergies Oxycodone [From OxyContin] Adverse Reaction (Verified 09/01/16 14:33) Hallucinating Procedures/tests Complete & Pending: Procedures Performed prior 72 hours Category Date Time Status Retroperitoneal Ultrasound - Complete [US Exams 09/08/16 18:30 Completed retroperitoneal comp] [US] Routine Date of admission: 09/07/16 20:49 Primary care physician: Jacob Bernstein MD Discharging clinician: Michele Donovan Anticipated date of discharge: 09/10/16 - Patient Status Disposition: Home, Self-Care Condition: Good Functional capacity at discharge: independent ambulation Overall status at discharge: patient is progressing back to baseline - Discharge Instructions Follow Up With: Jacob Bernstein MD [Primary Care Provider] - 01/26/17 9:20 am (Patient Scr is stalbe at 1.2 but increased from her baseline of 1. We have ordered outpatient BMP for followup. ALso her wbc increased to 17 after starting predniosne. It has been declining slowly but we will order outpatint CBC as well. ) - Diet and Activity Activity: increase activity as tolerated Diet: diabetic diet, low fat, low cholesterol Hospital course: Ms. Ellington is a 81 year old female admitted for increasing sob and wheezing. On September 01 she was diagnosed with influenza B, completed her course of tamiflu. Since then her sob an coughing have worsened. She also complained of fever, chills, poor appetitie, and nausea. CXR was negative. EKG showed sinus thacycardia. Trop was WNL. BNP was 25. She had mild MITUL with scr of 1.28. She was satting above 90% on room air. Patient was admitted for COPD exacerbation 2nd to influenza. Started on levaquin , prednisone, and duonebs. For her MITUL she was given IVF. Her Scr remained stable thorugh her stay at 1.2. On day 3 of admission her wbc count increased most likley 2nd to steroid use. Over the course of her stay her sob improved. Lung exam was CTAB. Tachycardia resolved. MITUL remained stable. We calculated FEUrea which was 39% indicating intrinsic renal disease possibly 2nd to DM II. Furthermore patient on day of discharge had intermittent substernal CP with sob. EKG was WNL. Troponin trended were WNL. CP resolved with nitro and did not return. Patient will need follow up CBC and BMP by her PCP. She will need to finish steroid and levqauin 5 day course. Follow up with PCP in 7 days. - Time Spent with Patient Total time spent providing and/or coordinating discharge services: - Constitutional Vitals: Temp Pulse Resp BP Pulse Ox 98.0 F 92 20 144/72 92 L 09/10/16 14:44 09/10/16 14:44 09/10/16 14:44 09/10/16 14:44 09/10/16 14:44 General appearance: Present: A&O X 3, no acute distress, answers questions appropriately - Head Head exam: Present: atraumatic, normocephalic - Eye Eye exam: Present: PERRL, conjuntiva pink, sclera anicteric - Neck Neck exam general surgery: Present: supple, trachea midline. Absent: lymphadenopathy - Respiratory Respiratory exam: Present: CTAB. Absent: accessory muscle use, rales, rhonchi, wheezes - Cardiovascular Cardiovascular exam: Present: RRR, +S1, +S2. Absent: diastolic murmur, gallop, rubs, systolic murmur - GI/Abdominal GI/Abdominal exam: Present: normal bowel sounds, soft, no peritoneal signs. Absent: distended, tenderness - Extremities Exam Extremities exam: Present: warm, radial pulses palpable and symetrical. Absent : calf tenderness, cyanotic, pedal edema - Neurological Exam Neurological exam: Present: CN II-XII intact, oriented X3, no focal deficits. Absent: pronater drift, facial droop, speech deficit - Skin Skin exam: Present: dry, intact - VTE Documentation of Mechanical Device: Graduated compression elastic hosiery <Arnold Rodriguez T - Last Filed: 09/10/16 16:41> Procedures/tests Complete & Pending: Procedures Performed prior 72 hours Category Date Time Status Retroperitoneal Ultrasound - Complete [US Exams 09/08/16 18:30 Completed retroperitoneal comp] [US] Routine Date of admission: 09/07/16 20:49 Primary care physician: Jacob Bernstein MD Hospital course: Ms. Ellington is a 81 year old female - Time Spent with Patient Total time spent providing and/or coordinating discharge services: - Constitutional Vitals: Temp Pulse Resp BP Pulse Ox 98.0 F 92 20 144/72 92 L 09/10/16 14:44 09/10/16 14:44 09/10/16 14:44 09/10/16 14:44 09/10/16 14:44 - Attending Attestation I examined this patient and my medical decision-making was reviewed with the LINK TRAINER OPERATOR/PA/Advanced Practice Nurse/Resident Physician. I agree with the documented findings, disposition and treatment plan as described except to the extent set forth below 81 year old female with history of coronary artery disease, hypertension, hyperlipidemia, hypothyroid, COPD Patient is admitted and being managed for COPDE, MITUL She is seen at bedside , sitting out of bed to chair, with daughters She denies new complains Physical exam remarkable for diffuse coarse breath sounds, not wheezing at time of review labs reviewed: Leukocytosis possibly from steroids, improved, Slightly elevated Creatinine , Renal USS showed normal kidneys ECW review revealed she has had creatinine levels up to 1.03 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 Rpt CBC and Chem in few days and have PCP follow up Rest of details as in resident's documentation
[2016-09-10 15:08] LABS: Creatinine,Urine 81 mg/dL
--- NOTE | 2016-09-13 13:37 | Electrocardiograph Report ---
[place] [id number] Test Date: 2016-09-10 Pat Name: Genoveva Ellington Department: 114 Room: [facility] Gender: F [employer] Project Manager: : 1935 Requested By: Arnold Rodriguez Order Number: [id number] Reading MD: Tyler Nichols MD Measurements Intervals [place] Rate: 87 P: 66 CT: 170 QRS: 12 QRSD: 88 T: 40 QT: 375 QTc: 419 Interpretive Statements SINUS RHYTHM Electronically Signed On 09-13-2016 13:36:18 EDT by Tyler Nichols MD
== END 2016-09-10 17:56 | disposition home or self-care (01) ==
LOC: 3NENU 15:08 → EMEROO 15:08 → SUATTDRO 20:49 → 3NENU 21:42
PROVIDERS: ADMIT Hospitalist; ATTEND Internal Medicine

== ENCOUNTER 2016-11-04 10:14 | Inpatient (IN) ==
--- NOTE | 2016-11-04 11:49 | Emergency Department Note ---
Disposition Clinical Impression: Pneumothorax after biopsy Disposition: Admitted As Inpatient Condition: Fair Referrals: Jacob Bernstein MD [Primary Care Provider] - Forms: ED Satisfaction Letter Time of Disposition: 14:31 General Adult HPI - General Chief complaint: ED Shortness of Breath/Dyspnea Stated complaint: collapsed lung/Sent from Cancer center Time Seen by Provider: 11/04/16 10:16 Source: patient, family Limitations: no limitations - History of Present Illness HPI Narrative: Patient presenting from home. Recently diagnosed brain cancer, suspected to be primary lung cancer. Underwent PET CT yesterday to evaluate the lung cancer, and incidentally found a large left-sided pneumothorax. Patient was sent over today for further management. Patient denies any symptoms. She denies any chest pain. She states she does not feel short of breath. She has not been coughing. No abdominal pain, nausea, vomiting, back pain or any other concerns. She states that she feels absolutely fine. The brain cancer was found previously. Due to the acute onset of right leg numbness and a CT scan found the cancer. She has been undergoing radiation for that. She has no complaints currently. She states that her oncologist called her today and told her to come to the ER. Pain Scale: 0 - Related Data Home Medications Medication Instructions Recorded Confirmed Acetaminophen [Tylenol] 500 mg PO HS 09/07/16 11/04/16 Clopidogrel [Plavix] 75 mg PO DAILY 09/07/16 11/04/16 Levothyroxine Sodium 75 mcg PO QAM 09/07/16 11/04/16 Nitroglycerin [Nitrostat] 0.4 mg SL Q5M PRN 09/07/16 11/04/16 Pravastatin Sodium 80 mg PO DAILY 09/07/16 11/04/16 Verapamil ER (24 HR) [Calan SR] 240 mg PO DAILY 09/07/16 11/04/16 Meclizine [Antivert] 12.5 mg PO DAILY 10/15/16 11/04/16 Docusate [Colace] 2 tab PO HS 11/01/16 11/04/16 Ezetimibe [Zetia] 10 mg PO DAILY 11/04/16 11/04/16 Ipratropium/Albuterol Neb [Duoneb] 3 ml IH Q6HR PRN 11/04/16 11/04/16 Temazepam [Restoril] 30 mg PO HS 11/04/16 11/04/16 Previous Rx's Medication Instructions Recorded Zolpidem [Ambien] 5 mg PO HS PRN #30 tablet 10/15/16 Dexamethasone [Decadron] 4 mg PO TID #90 tab 10/25/16 Hydromorphone HCl [Dilaudid] 2 mg PO Q4H PRN #60 tablet 11/01/16 Morphine Sulfate SR (12 HR) [MS 15 mg PO BID #60 tablet.er 11/01/16 Contin] Allergies Allergy/AdvReac Type Severity Reaction Status Date / Time Oxycodone [From OxyContin] AdvReac See Verified 11/01/16 12:22 Comments All systems ED: reviewed and negative except as stated. Constitutional: Denies: fever Cardiovascular: Denies: chest pain, dyspnea on exertion, edema, syncope Respiratory: Denies: cough, dyspnea, hemoptysis, stridor, sputum production Gastrointestinal: Denies: abdominal pain, nausea, vomiting Musculoskeletal: Denies: back pain, neck pain Integumentary: Denies: rash Neurological: Denies: headache Endocrine: Denies: fatigue Past Medical History - Past Medical History Attestation: Yes The following information was validated with the patient. Source: patient, old records reviewed Medical history: Reports: COPD, coronary artery disease, hyperlipidemia, hypertension, malignancy, thyroid disease, other Surgical history: Reports: hysterectomy, knee replacement Psychiatric history: Reports: no psych history - Social History Smoking Status: Former smoker Smokeless Tobacco Status: No Alcohol use: Reports: none Drug use: Reports: none Physical Exam - General Limitations: no limitations General appearance: alert, in no apparent distress - Head Head exam: atraumatic, normocephalic, normal inspection - Eye Eye exam: Present: normal appearance, PERRL, EOMI - ENT ENT exam: normal exam, normal oropharynx, mucous membranes moist - Neck Neck exam: Present: normal inspection, full ROM, trachea midline - Chest Chest inspection: Present: normal inspection, symmetric chest wall rise - Respiratory Respiratory exam: Present: normal lung sounds bilaterally, other (Patient does have equal breath sounds bilaterally, the left side is slightly decreased compared to the right but still appears to have good aeration throughout). Absent: respiratory distress - Cardiovascular Cardiovascular exam: Present: regular rate, normal rhythm, normal heart sounds - Abdominal Exam Abdominal exam: Present: soft, Non-Tender. Absent: tenderness, distention, guarding, rebound, rigidity - Extremities Exam Extremities exam: Present: normal inspection, full ROM. Absent: tenderness, pedal edema - Neurological Exam Neurological exam: Present: alert, oriented X3 - Psychiatric Psychiatric exam: Present: normal affect, normal mood - Skin Skin exam: Present: warm, dry, intact, normal color Course - Reevaluation(s) Reevaluation #1: Dr. Judge with cardiothoracic surgery came down to evaluate the patient. States that she is now agreeable with chest tube. She is okay with us placing that down here. We will place a small bore L CT. consent will be obtained. Procedural sedation will be performed with ketamine. Time: 12:35 - Consultations Consultation #1: I spoke with Dr. Baez, the hospitalist. He would like us to consult cardiothoracic surgery and obtain basic labs prior to admission. Thought that it would be reasonable to observe the patient is cardiothoracic since okay with that. Also paged Dr. Judge with CT surg. Time: 12:01 Consultation #2: Spoke with Dr. Judge, the cardiothoracic surgeon on-call. He was agreeable with the plan and states that the patient may be observed overnight and they will consult. The patient remained stable in no distress whatsoever. We will place her on oxygen 2 attempting to help with reexpansion. Hospitalist requested labs. We will do those at this time and admit. Time: 12:04 Vital Signs Temperature 97.9 F 11/04/16 10:20 Pulse Rate 102 11/04/16 10:20 Respiratory Rate 26 11/04/16 10:20 Blood Pressure 151/71 11/04/16 10:20 O2 Sat by Pulse Oximetry 96 11/04/16 10:20 Temperature 97.9 F 11/04/16 10:20 Pulse Rate 86 11/04/16 13:35 Respiratory Rate 20 11/04/16 13:35 Blood Pressure 144/82 11/04/16 13:35 O2 Sat by Pulse Oximetry 100 11/04/16 12:31 Oxygen Delivery Oxygen Delivery [] Non Rebreather Mask Oxygen Delivery [] Non Rebreather Mask Oxygen Delivery [] Non Rebreather Mask Oxygen Delivery [] Non Rebreather Mask Oxygen Delivery [] Non Rebreather Mask Oxygen Delivery [] Non Rebreather Mask Oxygen Delivery [] Non Rebreather Mask Oxygen Delivery [] Non Rebreather Mask Oxygen Delivery Non Rebreather Mask Procedures - Chest Tube Chest Tube 1 Chest Tube Location: fourth interspace Chest Tube Prep: betadine prep, sterile drapes applied Local Anesthetic: lidocaine 1% Amount of Anesthesia Used (mL): 8 Incision Made With: #11 blade Post Procedure: sutured to skin Tube Drainage: other (Small amount of serosanguineous fluid. After hwang of air) Post Procedure CXR?: Yes Patient Tolerated Procedure: Yes Medical Decision Making - Medical Records Medical records reviewed: Yes I reviewed the patient's medical records. - Lab Data Lab results reviewed: Yes I reviewed the patient's lab results. Result diagrams: 11/04/16 12:21 11/04/16 12:21 Lab Results 11/04/16 11/04/16 Range/Units 12:21 12:21 WBC 10.7 (4.3-11.1) K/mcL RBC 5.25 H (3.82-4.97) M/mcL Hgb 15.0 (11.5-15.4) g/dL Hct 47.0 H (35.3-44.9) % MCV 89.5 (83.0-100.0) fL MCH 28.6 (28.0-33.3) pg MCHC 31.9 (31.6-35.5) g/dL RDW 15.5 H (11.5-14.5) % Plt Count 203 (140-400) K/mcL MPV 9.7 (9.4-12.4) fL Immature Gran % 2.3 (0-4) % Seg Neutrophils % 83.1 % Lymphocytes % 8.8 % Monocytes % 5.0 % Eosinophils % 0.6 % Basophils % 0.2 % Neutrophils # 8.9 (1.6-8.9) K/mcL Lymphocytes # 0.9 (0.6-4.6) K/mcL Monocytes # 0.5 (0.0-1.3) K/mcL Eosinophils # 0.1 (0.0-0.6) K/mcL Basophils # 0.0 (0.0-0.2) K/mcL Sodium 139 (136-145) mEq/L Potassium 3.9 (3.5-4.5) mEq/L Chloride 108 (98-109) mEq/L Carbon Dioxide 23 (19-29) mEq/L BUN 31 H (7-20) mg/dL Creatinine 0.88 (0.57-1.11) mg/dL Est GFR ( Amer) > 60 (> 60) Est GFR (Non-Af Amer) > 60 (> 60) BUN/Creatinine Ratio 35 H (6-26) Glucose 97 (70-99) mg/dL Calculated Osmolality 294 (280-300) Calcium 7.7 L (8.6-10.8) mg/dL - Radiology Data Radiology results reviewed: Yes I reviewed the patient's radiology results. - EKG Data EKG #1 EKG attestation: Yes I reviewed and interpreted this EKG. EKG results narrative: Sinus rhythm, rate 85, IN interval 152, QRS 94, QTC 385, normal axis, nonspecific T-wave changes, no acute changes
[2016-11-04 12:33] LABS: Basophils % 0.2 %; Eosinophils # 0.1 K/mcL (0.0-0.6); Eosinophils % 0.6 %; Immature Granulocytes % 2.3 % (0-4); Lymphocytes # 0.9 K/mcL (0.6-4.6); Lymphocytes % 8.8 %; Mean Corpuscular HGB Conc 31.9 g/dL (31.6-35.5); Mean Corpuscular Hemoglobin 28.6 pg (28.0-33.3); Mean Corpuscular Volume 89.5 fL (83.0-100.0); Mean Platelet Volume 9.7 fL (9.4-12.4); Monocytes # 0.5 K/mcL (0.0-1.3); Neutrophils # 8.9 K/mcL (1.6-8.9); Platelet Count 203 K/mcL (140-400); Red Blood Count 5.25 M/mcL (3.82-4.97); Red Cell Distribution Width 15.5 % (11.5-14.5); Segmented Neutrophils % 83.1 %
[2016-11-04] MEDS ORDERED: Ketamine *HR* 500 MG/10 ML MDV IVP ONE ×2 (12:35→14:26)
[2016-11-04] MEDS ORDERED: Lidocaine/EPI 1:100k 1% 20 ML VIAL INFILT ONE (12:37)
--- NOTE | 2016-11-04 12:42 | Emergency Department Note ---
START Narrative - START START: I examined this patient and my medical decision-making was reviewed with the MELTER OPERATOR/PA/Advanced Practice Nurse/Resident Physician. I agree with the documented findings, disposition and treatment plan as described except to the extent set forth below. ED attending note: Patient seen with emergency medicine resident Dr. Fuller. Please see a copy of his note for details of the H&P, evaluation, management and disposition of this patient. We independently had [id number] contact with the patient Briefly: A 81-year-old female sent by wheelchair from the [facility] after having a PET scan to follow her cancer discovered in pneumothorax after a lung biopsy which was done about a few days ago. Patient is asymptomatic. Bedside pelvic ultrasound suggests pneumothorax informed by chest x-ray. Moderate size on the left. Discussed the case with Dr. Alberto from cardiothoracic surgery who evaluated the patient in the ED and agreed that placement of a small anterior Heimlich catheter-like device for chest tube insertion and expunge print of the pneumothorax would be expeditious and the patient is agreeable to this. Resident will be performing this procedure under my direct supervision with procedural sedation. Patient will be admitted afterwards. Patient stable
[2016-11-04 12:48] LABS: BUN/Creatinine Ratio 35 (6-26); Blood Urea Nitrogen 31 mg/dL (7-20); Calcium 7.7 mg/dL (8.6-10.8); Carbon Dioxide 23 mEq/L (19-29); Chloride 108 mEq/L (98-109); Glucose 97 mg/dL (70-99); Osmolality,Calculated 294 (280-300); Potassium 3.9 mEq/L (3.5-4.5); Sodium 139 mEq/L (136-145); eGFR For African Americans > 60 (> 60); eGFR For Non-African Americans > 60 (> 60)
[2016-11-04] MEDS ORDERED: Lidocaine/EPI 1:100k 1% 30 ML VIAL INFILT ONE (13:00)
--- NOTE | 2016-11-04 13:03 | Cardiothoracic Consult Note ---
Date of Encounter: 11/04/16 Time of Encounter: 13:00 - History of Present Illness Consult date: 11/04/16 Requesting physician: Josh Fuller Consult reason: Left pneumothorax evaluation. Chief complaint: Shortness of breath. History of present illness: Ms. Ellington is a 81 year old hypertensive lady with hypercholesterolemia and newly diagnosed stage IV non-small cell lung cancer. Approximately 1 month ago the patient had complaints of shortness of breath, dyspnea on exertion, cough, and wheezing.. She was evaluated at a local urgent care facility on September 01, 2016 and treated for influenza B. Despite treatment with Tamiflu, the patient's symptoms did not resolve. The patient's daughters state that the patient had difficulty ambulating and her home without experiencing profound respiratory distress. The symptoms did not improve and the patient returned to [facility] approximately 10 days ago. At that time patient was found to have a left lower lobe lung mass. This was biopsied and was found to be consistent with a poorly differentiated non-small cell lung carcinoma. The patient also began complaining of dizziness and an MRI revealed multiple enhancing masses in both cerebral hemispheres consistent with metastatic disease. The patient underwent a PET scan yesterday and the CT portion revealed a large pneumothorax. This study was reviewed by her oncologist this morning and the patient was asked to be evaluated at [facility] emergency department. Upon evaluation the patient is sitting comfortably in the emergency room bay. She is on oxygen; however, does not complain of shortness of breath or dyspnea on exertion. A repeat chest x-ray showed a moderate-sized left pneumothorax. I have been asked to evaluate the patient for possible chest tube insertion. Past Med Surg Social Fam HX - Past Medical History Medical history: COPD, coronary artery disease, hyperlipidemia, hypertension, malignancy, thyroid disease, other Psychiatric history: no psych history - Past Surgical History Surgical History: hysterectomy, knee replacement (Right side.) - Social History Smoking Status: Former smoker Packs per day: 1 ppd x 63 yrs Smokeless Tobacco Status: No Alcohol use: none Drug use: none Occupational status: retired Current living situation: Home - Independent Activity Level: Independent ambulation Recent Out of Country Travel Within the Last 8 Weeks: No Exposure or Possible Exposure to Illness During Travel: No - Family History Mother Living Status: Father Living Status: Medications and Allergies Acetaminophen [Tylenol] 500 mg PO HS 09/07/16 [History] Clopidogrel [Plavix] 75 mg PO DAILY 09/07/16 [History] Levothyroxine Sodium 75 mcg PO QAM 09/07/16 [History] Nitroglycerin [Nitrostat] 0.4 mg SL Q5M PRN 09/07/16 [History] Pravastatin Sodium 80 mg PO DAILY 09/07/16 [History] Verapamil ER (24 HR) [Calan SR] 240 mg PO DAILY 09/07/16 [History] Meclizine [Antivert] 12.5 mg PO DAILY 10/15/16 [History] Zolpidem [Ambien] 5 mg PO HS PRN #30 tablet 10/15/16 [Rx] Dexamethasone [Decadron] 4 mg PO TID #90 tab 10/25/16 [Rx] Docusate [Colace] 2 tab PO HS 11/01/16 [History] Hydromorphone HCl [Dilaudid] 2 mg PO Q4H PRN #60 tablet 11/01/16 [Rx] Morphine Sulfate SR (12 HR) [MS Contin] 15 mg PO BID #60 tablet.er 11/01/16 [Rx] Ezetimibe [Zetia] 10 mg PO DAILY 11/04/16 [History] Ipratropium/Albuterol Neb [Duoneb] 3 ml IH Q6HR PRN 11/04/16 [History] Temazepam [Restoril] 30 mg PO HS 11/04/16 [History] Allergies Oxycodone [From OxyContin] Adverse Reaction (Verified 11/01/16 12:22) See Comments personality changes "becomes mean" All Systems Review: A 10-system review of systems was performed and is negative for pertinent findings except as documented above in the HPI. Physical Examination Vital Signs, Last 4 Hours Temp Pulse Resp BP Pulse Ox 11/04/16 12:31 84 22 150/98 100 11/04/16 12:25 100 11/04/16 11:23 94 20 153/72 95 11/04/16 10:20 97.9 F 102 26 151/71 96 General: Conversant, No Apparent Distress Neck: No JVD, Normal carotid pulses Cardiac: Reg Rate and Rhythm, Normal S1 and S2, No Murmur Lungs: Normal Breath Sounds (Right lung tuttle.), Decreased breath sounds (Left lung tuttle.) Neuro: Alert and responsive, No focal deficits noted Vascular: Normal capillary refill Abdomen: Soft, Non-tender Skin: No rashes noted on visualized skin Musculoskeletal: No Chest Wall Tenderness Extremities: No Clubbing, No Cyanosis, No Edema Results 11/04/16 12:21 11/04/16 12:21 Lab Results, Last 24 hours 11/04/16 11/04/16 12:21 12:21 WBC 10.7 Hgb 15.0 Hct 47.0 H Plt Count 203 Sodium 139 Potassium 3.9 Chloride 108 Carbon Dioxide 23 BUN 31 H Creatinine 0.88 Glucose 97 Calcium 7.7 L - Imaging Chest Xray: image reviewed (Normal cardiac size. Moderate to large left pneumothorax.) Consult Discharge Plan - Plan Referrals: Jacob Bernstein MD [Primary Care Provider] -
[2016-11-04] MEDS ORDERED: Lidocaine/EPI 1:100k 1% 50 ML VIAL INFILT ONE (13:30)
[2016-11-04] MEDS ORDERED: *HR* Midazolam HCl 2 MG/2 ML VIAL ONE (13:55)
--- NOTE | 2016-11-04 14:57 | Emergency Department Note ---
Disposition Clinical Impression: Pneumothorax after biopsy Disposition: Admitted As Inpatient Condition: Fair Time of Disposition: 15:00 General Adult HPI - General Chief complaint: ED Shortness of Breath/Dyspnea Stated complaint: collapsed lung/Sent from Cancer center Time Seen by Provider: 11/04/16 10:16 Source: patient, family Mode of arrival: ambulatory Limitations: no limitations Nursing Notes Reviewed: Yes Vital Signs Reviewed: Yes - History of Present Illness HPI Narrative: This note is for the sole purpose of procedural sedation documentation. Please see documentation from Dr. Fuller regarding HPI, ROS, Exam, Disposition. Pain Scale: 0 - Related Data Home Medications Medication Instructions Recorded Confirmed Acetaminophen [Tylenol] 500 mg PO HS 09/07/16 11/04/16 Clopidogrel [Plavix] 75 mg PO DAILY 09/07/16 11/04/16 Levothyroxine Sodium 75 mcg PO QAM 09/07/16 11/04/16 Nitroglycerin [Nitrostat] 0.4 mg SL Q5M PRN 09/07/16 11/04/16 Pravastatin Sodium 80 mg PO DAILY 09/07/16 11/04/16 Verapamil ER (24 HR) [Calan SR] 240 mg PO DAILY 09/07/16 11/04/16 Meclizine [Antivert] 12.5 mg PO DAILY 10/15/16 11/04/16 Docusate [Colace] 2 tab PO HS 11/01/16 11/04/16 Ezetimibe [Zetia] 10 mg PO DAILY 11/04/16 11/04/16 Ipratropium/Albuterol Neb [Duoneb] 3 ml IH Q6HR PRN 11/04/16 11/04/16 Temazepam [Restoril] 30 mg PO HS 11/04/16 11/04/16 Previous Rx's Medication Instructions Recorded Zolpidem [Ambien] 5 mg PO HS PRN #30 tablet 10/15/16 Dexamethasone [Decadron] 4 mg PO TID #90 tab 10/25/16 Hydromorphone HCl [Dilaudid] 2 mg PO Q4H PRN #60 tablet 11/01/16 Morphine Sulfate SR (12 HR) [MS 15 mg PO BID #60 tablet.er 11/01/16 Contin] Allergies Allergy/AdvReac Type Severity Reaction Status Date / Time Oxycodone [From OxyContin] AdvReac See Verified 11/01/16 12:22 Comments Constitutional: Denies: fever Cardiovascular: Denies: chest pain, dyspnea on exertion, edema, syncope Respiratory: Denies: cough, dyspnea, hemoptysis, stridor, sputum production Gastrointestinal: Denies: abdominal pain, nausea, vomiting Musculoskeletal: Denies: back pain, neck pain Integumentary: Denies: rash Neurological: Denies: headache Endocrine: Denies: fatigue Past Medical History - Past Medical History Medical history: Reports: COPD, coronary artery disease, hyperlipidemia, hypertension, malignancy, thyroid disease, other Surgical history: Reports: hysterectomy, knee replacement (Right side.) Psychiatric history: Reports: no psych history - Social History Smoking Status: Former smoker Smokeless Tobacco Status: No Alcohol use: Reports: none Drug use: Reports: none Physical Exam - General Limitations: no limitations General appearance: alert, in no apparent distress Course Vital Signs Temperature 97.9 F 11/04/16 10:20 Pulse Rate 102 11/04/16 10:20 Respiratory Rate 26 11/04/16 10:20 Blood Pressure 151/71 11/04/16 10:20 O2 Sat by Pulse Oximetry 96 11/04/16 10:20 Temperature 97.9 F 11/04/16 10:20 Pulse Rate 92 11/04/16 14:30 Respiratory Rate 18 11/04/16 14:30 Blood Pressure 131/86 11/04/16 14:30 O2 Sat by Pulse Oximetry 99 11/04/16 14:30 Oxygen Delivery Oxygen Delivery [1422] Non Rebreather Mask Oxygen Delivery [1415] Non Rebreather Mask Oxygen Delivery [1400] Non Rebreather Mask Oxygen Delivery [1355] Non Rebreather Mask Oxygen Delivery [1350] Non Rebreather Mask Oxygen Delivery [1345] Non Rebreather Mask Oxygen Delivery [1340] Non Rebreather Mask Oxygen Delivery [1335] Non Rebreather Mask Oxygen Delivery Non Rebreather Mask Procedures - Procedural Sedation Procedure: Chest thoracostomy Indication: other (Chest thoracostomy) Dietary Status: No solid food in preceding 4 hrs and no liquid in preceding 2 hrs H&P (including ROS) documented in medical record: Yes Most Recent Vitals: HR 87 BP 144/86 RR 15 O2 Saturation 99% on NRM (for the pneumothorax, previously 93% on RA) Previous reaction to sedatives/anesthetics: No Dentition: full dentition Airway Assessment: Patient can open mouth completely, TMJ function normal, Neck with adequate range of motion Possible difficult airway: No ASA Classification: CLASS II-Mild systemic disease Plan of Care: Pt appropriate candidate for procedure/moderate/conscious sedation , Risks/benefits of procedure/sedation discussed w/ patient/family Preparation: backer up applied, pulse oximeter, capnometry used, supplemental O2 applied, suction/airway equipment at bedside, IV secured Midazolam: IV Midazolam Dose: 1 (For emergence phenomenon) Ketamine: IV Ketamine Dose: 70 (Additional 35mg used in sedation) Patient Tolerated Procedure: well, no complications Complications: none Medical Decision Making - Lab Data Result diagrams: 11/04/16 12:21 11/04/16 12:21 Lab Results 11/04/16 11/04/16 Range/Units 12:21 12:21 WBC 10.7 (4.3-11.1) K/mcL RBC 5.25 H (3.82-4.97) M/mcL Hgb 15.0 (11.5-15.4) g/dL Hct 47.0 H (35.3-44.9) % MCV 89.5 (83.0-100.0) fL MCH 28.6 (28.0-33.3) pg MCHC 31.9 (31.6-35.5) g/dL RDW 15.5 H (11.5-14.5) % Plt Count 203 (140-400) K/mcL MPV 9.7 (9.4-12.4) fL Immature Gran % 2.3 (0-4) % Seg Neutrophils % 83.1 % Lymphocytes % 8.8 % Monocytes % 5.0 % Eosinophils % 0.6 % Basophils % 0.2 % Neutrophils # 8.9 (1.6-8.9) K/mcL Lymphocytes # 0.9 (0.6-4.6) K/mcL Monocytes # 0.5 (0.0-1.3) K/mcL Eosinophils # 0.1 (0.0-0.6) K/mcL Basophils # 0.0 (0.0-0.2) K/mcL Sodium 139 (136-145) mEq/L Potassium 3.9 (3.5-4.5) mEq/L Chloride 108 (98-109) mEq/L Carbon Dioxide 23 (19-29) mEq/L BUN 31 H (7-20) mg/dL Creatinine 0.88 (0.57-1.11) mg/dL Est GFR ( Amer) > 60 (> 60) Est GFR (Non-Af Amer) > 60 (> 60) BUN/Creatinine Ratio 35 H (6-26) Glucose 97 (70-99) mg/dL Calculated Osmolality 294 (280-300) Calcium 7.7 L (8.6-10.8) mg/dL
[2016-11-04] MEDS ORDERED: Naloxone 0.4 MG/ML INJ IVP PRN (16:32)
[2016-11-04] MEDS ORDERED: Nitroglycerin 0.4 MG TAB.SUBL SL PRN (16:56)
[2016-11-04] MEDS ORDERED: Ipratropium/Albuterol Neb 3 ML IH PRN (16:56)
--- NOTE | 2016-11-04 17:47 | Event Note ---
Date of Encounter: 11/04/16 Time of Encounter: 17:44 Patient seen and examined with nurse practitioner. Left sided pneumothorax likely related to recent lung biopsy. Cardiothoracic surgery placed chest tube with reexpansion of the lungs. Patient hemodynamically stable. Minimal oxygen requirements.
[2016-11-04] MEDS ORDERED: Temazepam 15 MG CAPSULE PO SCH (21:00)
--- NOTE | 2016-11-04 21:14 | Internal Med History&Physical ---
Date of Encounter: 11/04/16 Time of Encounter: 15:00 Assessment and Plan (1) Pneumothorax after biopsy Current visit: Yes Status: Acute Assess: Ms. Ellington is a 81 year old female presents from ED with chief complaint of shortness of breath and dyspnea related to pneumothorax following lung biopsy. Patient was recently diagnosed with brain cancer, suspected to be primary lung cancer. Underwent PET-CT scan yesterday to evaluate the lung cancer and a large left sided pneumothorax was incidentally found. Patient was sent to ED today for further management patient denies any chest pain or chest discomfort. Plan: Chest tube placement in left lung apex placed 1-View CXR dated 11/04/16 shows resolution of left-sided pneumothorax following chest tube placement O2 2L ordered with titration if SpO2 <92% Monitor patient's vital signs Close monitoring of chest tube output Close monitoring of patient for signs of respiratory distress (2) Acute exacerbation of chronic obstructive airways disease Current visit: Yes Status: Acute Assess: Patient presents with acute exacerbation of COPD related to pneumothorax following lung biopsy. Plan: 1-View CXR dated 11/04/16 shows resolution of left-sided pneumothorax following chest tube placement O2 2L ordered with titration if SpO2 <92% Monitor patient's vital signs Close monitoring of patient for signs of respiratory distress (3) Hypertension Current visit: Yes Status: Chronic Assess: Patient presents with history of chronic hypertension. Plan: Continue Verapamil Monitor patient's vital signs Qualifiers: Hypertension type: essential hypertension Qualified Code(s): I10 - Essential (primary) hypertension (4) Hypothyroidism Current visit: Yes Status: Chronic Assess: Patient presents with history of thyroid disease. Plan: Continue Synthroid Follow-up labs ordered Monitor patient's vital signs Qualifiers: Hypothyroidism type: acquired Qualified Code(s): E03.9 - Hypothyroidism, unspecified (5) DVT prophylaxis Current visit: Yes Status: Acute Assess: Patient placed on DVT prophylaxis due to current health status and bed rest. Plan: Heparin 5,000 units SQ Q8HR ordered Continue low-dose aspirin therapy Continue Plavix Monitor patient's vital signs Internal Medicine - H&P: HPI Admitted From: Emergency Dept Plans for Post Hospital Care: Home History of present illness: Ms. Ellington is a 81 year old female presents from ED with chief complaint of shortness of breath and dyspnea related to pneumothorax following lung biopsy. Patient was recently diagnosed with brain cancer, suspected to be primary lung cancer. Underwent PET-CT scan yesterday to evaluate the lung cancer and a large left sided pneumothorax was incidentally found. Patient was sent to ED today for further management patient denies any chest pain or chest discomfort. Patient denies coughing, abdominal pain, nausea, vomiting, back pain, or any other pain-related concerns. Brain cancer was found previously. Acute onset of right leg numbness prompting CT scan which found cancer she is currently undergoing radiation treatment for this. The patient has a history of COPD, coronary artery disease, hyperlipidemia, hypertension, malignancy, and thyroid disease. Patient is a former smoker stating she smoked one pack per day, but currently does not smoke. Consult to cardiothoracic surgery ordered in ED. Patient to be placed in patient status continuous cardiac monitoring, continuous pulse ox monitoring, continuous vital sign monitoring. Patient to be monitored closely. Past Med Surg Social Fam HX - Past Medical History Medical history: COPD, coronary artery disease, hyperlipidemia, hypertension, malignancy, thyroid disease, other Psychiatric history: no psych history - Past Surgical History Surgical History: hysterectomy, knee replacement - Social History Smoking Status: Former smoker Packs per day: 1 ppd x 63 yrs Smokeless Tobacco Status: No Alcohol use: none Drug use: none Occupational status: retired Current living situation: Home Activity Level: Independent ambulation Recent Out of Country Travel Within the Last 8 Weeks: No Exposure or Possible Exposure to Illness During Travel: No - Family History Mother Race: Family Member Ethnicity: Non- Living Status: Age at : 52 Cause of : Breast Cancer Hx Family Cancer: Yes (Breast) Father Race: Family Member Ethnicity: Non- Living Status: Age at : 53 Cause of : Stroke Hx Family Cardiac Disorders: Yes (Stroke) Brother Race: Family Member Ethnicity: Non- Living Status: Age at : 85 Hx Family Cardiac Disorders: Yes (HTN) Sister Race: Family Member Ethnicity: Non- Living Status: Still Living Hx Family Cancer: Yes (Stage IV Lung Cancer) Internal Medicine - H&P: Meds Acetaminophen [Tylenol] 500 mg PO HS 09/07/16 [History] Clopidogrel [Plavix] 75 mg PO DAILY 09/07/16 [History] Levothyroxine Sodium 75 mcg PO QAM 09/07/16 [History] Nitroglycerin [Nitrostat] 0.4 mg SL Q5M PRN 09/07/16 [History] Pravastatin Sodium 80 mg PO DAILY 09/07/16 [History] Verapamil ER (24 HR) [Calan SR] 240 mg PO DAILY 09/07/16 [History] Meclizine [Antivert] 12.5 mg PO DAILY 10/15/16 [History] Zolpidem [Ambien] 5 mg PO HS PRN #30 tablet 10/15/16 [Rx] Dexamethasone [Decadron] 4 mg PO TID #90 tab 10/25/16 [Rx] Docusate [Colace] 2 tab PO HS 11/01/16 [History] Hydromorphone HCl [Dilaudid] 2 mg PO Q4H PRN #60 tablet 11/01/16 [Rx] Morphine Sulfate SR (12 HR) [MS Contin] 15 mg PO BID #60 tablet.er 11/01/16 [Rx] Ezetimibe [Zetia] 10 mg PO DAILY 11/04/16 [History] Ipratropium/Albuterol Neb [Duoneb] 3 ml IH Q6HR PRN 11/04/16 [History] Temazepam [Restoril] 30 mg PO HS 11/04/16 [History] Allergies Oxycodone [From OxyContin] Adverse Reaction (Verified 11/01/16 12:22) See Comments personality changes "becomes mean" All Systems PM: A 10-system review of systems was performed and is negative for pertinent findings except as documented above in the HPI. - Constitutional Constitutional: no chills, no fever(s), no night sweats - EENT Eyes: change in vision (Patient reports her right eye becomes cloudy/blurry to see out of each evening around 7 p.m. ), no discharge, no pain, no photophobia Ears: no ear discharge, no ear pain, no tinnitus Nose, mouth and throat: no dysphagia, no nasal discharge, no neck pain, no sore throat - Cardiovascular Cardiovascular ROS IM: as per HPI, irregular heart rhythm (Supraventricular premature complexes present) - Respiratory Respiratory: as per HPI - Gastrointestinal Gastrointestinal: no abdominal pain, no diarrhea, no hematemesis, no hematochezia, no melena, no nausea, no vomiting - Genitourinary Genitourinary: no change in urinary stream, no dysuria, no flank pain, no hematuria Menstruation: as per HPI, post hysterectomy - Musculoskeletal Musculoskeletal ROS IM: as per HPI, numbness (Patient reports her right foot is always numb and drags when she walks) - Integumentary Integumentary IM: no rash, no unusual bruising - Neurological Neurological ROS: no confusion, no convulsions, no focal weakness, no numbness, no tingling, no tremor(s) - Psychiatric Psychiatric: as per HPI - Endocrine Endocrine IM: as per HPI - Hematologic/Lymphatic Hematologic/Lymphatic: no easy bruising - Allergic/Immunologic Allergic/Immunologic: as per HPI - Constitutional Vitals: Temp Pulse Resp BP Pulse Ox 99.4 F 92 14 137/79 94 11/04/16 20:35 11/04/16 20:35 11/04/16 20:35 11/04/16 20:35 11/04/16 20:35 General appearance: Present: cooperative, A&O X 3, pleasant, obese, answers questions appropriately - Head Head exam: Present: atraumatic, normocephalic - Eye Eye exam: Present: PERRL, conjuntiva pink, sclera anicteric Pupils: Present: PERRL - ENT ENT exam: Present: normal exam, normal external ear exam - Neck Neck exam general surgery: Present: supple, trachea midline. Absent: lymphadenopathy - Respiratory Respiratory exam: Present: decreased breath sounds (Left lobes due to pneumothorax), CTAB. Absent: accessory muscle use, rales, rhonchi, wheezes - Cardiovascular Cardiovascular exam: Present: irregular rhythm (Irregular rhythm noted on auscultation), +S1, +S2. Absent: diastolic murmur, gallop, rubs, systolic murmur - GI/Abdominal GI/Abdominal exam: Present: normal bowel sounds, soft, no peritoneal signs. Absent: distended, tenderness - Rectal Rectal exam: Present: deferred - Additional comments: exam deferred. - Extremities Exam Extremities exam: Present: warm, radial pulses palpable and symetrical. Absent : calf tenderness, cyanotic, pedal edema - Back Exam Back exam: Present: normal inspection - Neurological Exam Neurological exam: Present: alert, oriented X3, no focal deficits Additional comments: Left upper extremity weaker than the right on examination. Right lower extremity weaker than the left on examination due to numbness of foot. - Psychiatric Psychiatric exam: Present: normal affect, normal mood - Skin Skin exam: Present: dry, intact Internal Med - H&P Results - Labs CBC & Chem 7: 11/04/16 12:21 11/04/16 12:21 - EKG Data Prior EKG available for review: yes When compared to previous EKG: there are significant changes EKG comments: 11/04/16 21:24 EKG dated 09/10/16 shows sinus rhythm. EKG dated 11/04/16 shows sinus rhythm with occasional supraventricular premature complexes. - Diagnostic Studies Chest x-ray Additional comments: 2-View CXR dated 11/04/16 shows left-sided pneumothorax, which based on CT imaging the previously is large in volume. No mediastinal shift is seen at this time. Overall pattern appears similar to the recent CT study given differences in imaging technique. The degree of volume loss is best appreciated on the CT study the previous day associated with the patient's PET- CT exam. 1-View CXR dated 11/04/16 shows the cardiomediastinal silhouette is unremarkable. Aortic vascular calcification. Resolution of left-sided pneumothorax following small bore chest tube placement with tip in the left lung apex. The right lung remains clear. Rounded opacification in the retrocardiac left lower lobe measuring 3.3 cm in size. This correlates with the malignancy noted on recent PET-CT.
[2016-11-05 04:36] LABS: Basophils % 0.1 %; Hematocrit 42.8 % (35.3-44.9); Hemoglobin 13.9 g/dL (11.5-15.4); INR 1.1; Immature Granulocytes % 1.8 % (0-4); Lymphocytes % 7.3 %; Mean Corpuscular HGB Conc 32.5 g/dL (31.6-35.5); Mean Corpuscular Hemoglobin 28.9 pg (28.0-33.3); Mean Platelet Volume 10.6 fL (9.4-12.4); Monocytes % 2.4 %; Platelet Count 183 K/mcL (140-400); Prothrombin Time 11.4 Seconds (9.4-12.1); Red Blood Count 4.81 M/mcL (3.82-4.97); Red Cell Distribution Width 15.7 % (11.5-14.5); Segmented Neutrophils % 88.4 %
[2016-11-05 04:37] LABS: Lymphocytes # 0.6 K/mcL (0.6-4.6); Monocytes # 0.2 K/mcL (0.0-1.3)
[2016-11-05 04:39] LABS: Activated Partial Thrombo Time 23.4 Seconds (26.0-36.0)
[2016-11-05 04:50] LABS: Alanine Aminotransferase 42 Units/L (0-55); Albumin 2.6 g/dL (3.5-5.0); Alkaline Phosphatase 64 Units/L (38-126); Aspartate Amino Transferase 23 Units/L (5-34); BUN/Creatinine Ratio 34 (6-26); Bilirubin,Total 0.4 mg/dL (0.2-1.2); Blood Urea Nitrogen 30 mg/dL (7-20); Calcium 7.8 mg/dL (8.6-10.8); Carbon Dioxide 22 mEq/L (19-29); Chloride 109 mEq/L (98-109); Globulin 2.6 g/dL (2.4-3.5); Glucose 143 mg/dL (70-99); Magnesium 2.1 mg/dL (1.6-2.6); Osmolality,Calculated 295 (280-300); Potassium 4.2 mEq/L (3.5-4.5); Sodium 138 mEq/L (136-145); Total Protein 5.2 g/dL (6.0-8.3); eGFR For African Americans > 60 (> 60); eGFR For Non-African Americans > 60 (> 60)
[2016-11-05] MEDS ORDERED: *HR* Heparin 5,000 UNIT/ML VIAL SQ SCH (06:00)
--- NOTE | 2016-11-05 06:39 | Electrocardiograph Report ---
[place] [facility] Test Date: 2016-11-04 Pat Name: Genoveva Ellington Department: 103 Room: 2NE21 Gender: F [employer]ag[employer]iding In[employer]: : [id number] Requested By: Josh Fuller Order Number: [id number] Reading MD: Noah Redd DO Measurements Intervals [place] Rate: 85 P: 67 SD: 152 QRS: 25 QRSD: 94 T: 66 QT: 342 QTc: 385 Interpretive Statements SINUS RHYTHM WITH OCCASIONAL SUPRAVENTRICULAR PREMATURE COMPLEXES NONSPECIFIC T-WAVE ABNORMALITY Electronically Signed On 11-05-2016 6:38:04 EDT by Naoh Redd DO
--- NOTE | 2016-11-05 08:48 | Cardiothoracic Progress Note ---
Date of Encounter: 11/05/16 Time of Encounter: 08:46 - Assessment and plan (1) Acute exacerbation of chronic obstructive airways disease Current Visit: Yes Status: Acute The assessment and plan as outlined above was discussed with the patient and/or family members who expressed understanding and agreement. All questions were answered. The patient's chest tube has a small air leak. We will continue to follow and remove it at the appropriate time. - Subjective Interval history: The patient has no complaints. Vital Signs, Last 4 Hours Temp Pulse Resp BP Pulse Ox 11/05/16 07:10 98.6 F 76 16 146/81 98 11/05/16 05:07 97.8 F 86 154/85 96 Oxgyen Flow Rate Oxygen Flow Rate (LPM) 2 Clinical Data, last 8 Hours Output, Urine Amount 0 Weight 11/03/16 11/04/16 11/05/16 23:59 23:59 23:59 Weight 74.6 kg Lungs are clear to percussion and auscultation. The chest tube has a small air leak. Chest x-ray after chest tube placement reveals no pneumothorax. - Labs 11/05/16 03:51 11/05/16 03:51 Lab Results, Last 24 hours 11/05/16 11/05/16 11/05/16 03:51 03:51 03:51 WBC 8.0 Hgb 13.9 Hct 42.8 Plt Count 183 INR 1.1 APTT 23.4 L Sodium 138 Potassium 4.2 Chloride 109 Carbon Dioxide 22 BUN 30 H Creatinine 0.88 Glucose 143 H Calcium 7.8 L Magnesium 2.1 Total Bilirubin 0.4 AST 23 ALT 42 Alkaline Phosphatase 64 Consult Discharge Plan - Plan Referrals: Jacob Bernstein MD [Primary Care Provider] -
[2016-11-05] MEDS: Verapamil ER (24 HR) 240 MG TABLET.ER PO SCH (09:38)
[2016-11-05] MEDS: ZETIA 10 MG PO SCH (09:39)
--- NOTE | 2016-11-05 13:31 | Internal Med Progress Note ---
Addendum entered and electronically signed by Patsy Kovacs DO 11/05/16 13:58 : EPCD for DVT prophylaxis. SQ heparin discontinued. Original Note: <Patsy Kovacs - Last Filed: 11/05/16 13:28> Date of Encounter: 11/05/16 Time of Encounter: 09:30 - Assessment and plan (1) Pneumothorax after biopsy Current Visit: Yes Status: Acute Assessment and plan: Left sided pneumothorax. repeat CXR showed resolution of pneumothorax after chest tube placement. Plan: CT surgery on board and following, appreciate recommendations. oxygen as needed. chest tube in place. 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 MRI head showed multiple enhancing masses in both hemispheres. patient had biopsy done on 10/25/16, and recent PET scan showed large left sided pneumothorax, so patient was asked to come to the hospital for evaluation. There was also metabolically active disease to the right adrenal gland. Plan: will follow up with oncology outpatient. she is currently receiving brain radiation outpatient (3) COPD (chronic obstructive pulmonary disease) Current Visit: Yes Status: Acute Assessment and plan: does not appear to be in exacerbation. continue bronchodilators as needed continue oxygen supplementation as needed. patient is not on home oxygen. Qualifiers: COPD type: unspecified COPD Qualified Code(s): J44.9 - Chronic obstructive pulmonary disease, unspecified (4) Hypertension Current Visit: Yes Status: Chronic Assessment and plan: continue verapamil. Qualifiers: Hypertension type: essential hypertension Qualified Code(s): I10 - Essential (primary) hypertension (5) Hypothyroidism Current Visit: Yes Status: Chronic Assessment and plan: continue home dose synthroid Qualifiers: Hypothyroidism type: acquired Qualified Code(s): E03.9 - Hypothyroidism, unspecified (6) CAD (coronary artery disease) Current Visit: No Status: Chronic Qualifiers: Coronary Disease-Associated Artery/Lesion type: [place] artery [place] vs. transplanted heart: [place] heart Associated angina: without angina Qualified Code(s): I25.10 - Atherosclerotic heart disease of [place] coronary artery without angina pectoris (7) DVT prophylaxis Current Visit: Yes Status: Acute Assessment and plan: heparin SQ - Subjective Interval history: 81 year old female evaluated at bedside. she recently had a lung biopsy on and PET scan after that showed a left pneumothorax, so she was called and asked to come into the hospital. She recently got diagnosed with stage 4 non small cell lung cancer, with mets to the brain. Patient is currently in the process of getting radiation treatments. she is doing well today. she denies nausea, vomiting, diarrhea, fever, chills. she denies cough. reports mild shortness of breath. she denies hemoptysis. - Constitutional Vitals: Temp Pulse Resp BP Pulse Ox 97.7 F 84 16 136/66 96 11/05/16 10:54 11/05/16 10:54 11/05/16 10:54 11/05/16 10:54 11/05/16 10:54 General appearance: Present: cooperative, A&O X 3, pleasant, obese, answers questions appropriately - Head Head exam: Present: atraumatic, normocephalic - Neck Neck exam general surgery: Present: supple, trachea midline - Respiratory Additional comments: decreased breath sounds in right lower lobe. chest tube to left lung in place. no signs of infection noted at site. - Cardiovascular Cardiovascular exam: Present: RRR, +S1, +S2 - GI/Abdominal GI/Abdominal exam: Present: normal bowel sounds, soft. Absent: distended, tenderness - Extremities Exam Extremities exam: Absent: cyanotic, pedal edema - Neurological Exam Neurological exam: Present: alert, oriented X3, no focal deficits - Psychiatric Psychiatric exam: Present: normal affect, normal mood Internal Medicine: Result - Labs CBC & Chem 7: 11/05/16 03:51 11/05/16 03:51 Labs: Short CBC 11/05/16 Range/Units 03:51 WBC 8.0 (4.3-11.1) K/mcL Hgb 13.9 (11.5-15.4) g/dL Hct 42.8 (35.3-44.9) % Plt Count 183 (140-400) K/mcL Neutrophils # 7.0 (1.6-8.9) K/mcL BMP 11/05/16 03:51 Sodium 138 Potassium 4.2 Chloride 109 Carbon Dioxide 22 BUN 30 H Creatinine 0.88 Glucose 143 H Calcium 7.8 L Liver Function 11/05/16 Range/Units 03:51 Total Bilirubin 0.4 (0.2-1.2) mg/dL AST 23 (5-34) Units/L ALT 42 (0-55) Units/L Alkaline Phosphatase 64 (38-126) Units/L Albumin 2.6 L (3.5-5.0) g/dL - ABG Interpretation ABG results: PT/INR, D-dimer PT 11.4 Seconds (9.4-12.1) 11/05/16 03:51 Consult Discharge Plan - Plan Instructions: Traumatic Pneumothorax (DC), Traumatic Pneumothorax (GEN), Lung Cancer (DC), Lung Cancer (GEN), Hypothyroidism (DC), Chronic Obstructive Pulmonary Disease (DC), Chronic Hypertension (DC), Brain Metastasis (DC), Brain Metastasis (GEN) Referrals: Jacob Bernstein MD [Primary Care Provider] - José Malhotra MD [Non-Partnered Physician] - 11/15/16 3:00 pm <Natan David - Last Filed: 11/05/16 17:04> Date of Encounter: 11/05/16 - Constitutional Vitals: Temp Pulse Resp BP Pulse Ox 98.6 F 77 14 148/67 91 11/05/16 15:29 11/05/16 15:29 11/05/16 15:29 11/05/16 15:29 11/05/16 15:29 Internal Medicine: Result - Labs CBC & Chem 7: 11/05/16 03:51 11/05/16 03:51 Labs: Short CBC 11/05/16 Range/Units 03:51 WBC 8.0 (4.3-11.1) K/mcL Hgb 13.9 (11.5-15.4) g/dL Hct 42.8 (35.3-44.9) % Plt Count 183 (140-400) K/mcL Neutrophils # 7.0 (1.6-8.9) K/mcL BMP 11/05/16 03:51 Sodium 138 Potassium 4.2 Chloride 109 Carbon Dioxide 22 BUN 30 H Creatinine 0.88 Glucose 143 H Calcium 7.8 L Liver Function 11/05/16 Range/Units 03:51 Total Bilirubin 0.4 (0.2-1.2) mg/dL AST 23 (5-34) Units/L ALT 42 (0-55) Units/L Alkaline Phosphatase 64 (38-126) Units/L Albumin 2.6 L (3.5-5.0) g/dL - ABG Interpretation ABG results: PT/INR, D-dimer PT 11.4 Seconds (9.4-12.1) 11/05/16 03:51 - Attending Attestation I examined this patient and my medical decision-making was reviewed with the DIAM[facility] GRINDER/PA/Advanced Practice Nurse/Resident Physician. I agree with the documented findings, disposition and treatment plan as described except to the extent set forth below.
[2016-11-05] MEDS: *HR* Heparin 5,000 UNIT/ML VIAL SQ SCH (17:19)
[2016-11-06] MEDS: *HR* Heparin 5,000 UNIT/ML VIAL SQ SCH ×2 (05:30→16:41)
[2016-11-06 06:19] LABS: Basophils % 0.1 %; Hemoglobin 13.1 g/dL (11.5-15.4); Immature Granulocytes % 1.5 % (0-4); Lymphocytes # 0.6 K/mcL (0.6-4.6); Lymphocytes % 6.8 %; Mean Corpuscular Hemoglobin 27.8 pg (28.0-33.3); Mean Platelet Volume 10.7 fL (9.4-12.4); Monocytes # 0.2 K/mcL (0.0-1.3); Monocytes % 2.7 %; Neutrophils # 7.8 K/mcL (1.6-8.9); Platelet Count 182 K/mcL (140-400); Red Blood Count 4.71 M/mcL (3.82-4.97); Red Cell Distribution Width 14.9 % (11.5-14.5); Segmented Neutrophils % 88.9 %
[2016-11-06 06:37] LABS: BUN/Creatinine Ratio 38 (6-26); Blood Urea Nitrogen 34 mg/dL (7-20); Calcium 8.2 mg/dL (8.6-10.8); Carbon Dioxide 23 mEq/L (19-29); Chloride 109 mEq/L (98-109); Glucose 148 mg/dL (70-99); Osmolality,Calculated 298 (280-300); Potassium 4.3 mEq/L (3.5-4.5); Sodium 139 mEq/L (136-145); eGFR For African Americans > 60 (> 60); eGFR For Non-African Americans > 60 (> 60)
--- NOTE | 2016-11-06 09:28 | Cardiothoracic Progress Note ---
Date of Encounter: 11/06/16 Time of Encounter: 09:26 - Assessment and plan (1) Acute exacerbation of chronic obstructive airways disease Current Visit: Yes Status: Acute I will take the chest tube off suction. I will check a chest x-ray tomorrow morning. If this looks good, I will remove the chest tube tomorrow and the patient can be discharged tomorrow. - Subjective Interval history: The patient has no complaints. Vital Signs, Last 4 Hours Temp Pulse Resp BP Pulse Ox 11/06/16 06:37 97.8 F 75 16 148/77 99 Oxgyen Flow Rate Oxygen Flow Rate (LPM) 2 Clinical Data, last 8 Hours Output, Chest Tube Drainage 2 Amount [Left Mid-Clavicular Chest #4] Output, Chest Tube Drainage 2 Amount [Left Mid-Clavicular Chest #4] Output, Urine Amount 0 Weight 11/04/16 11/05/16 11/06/16 23:59 23:59 23:59 Weight 74.6 kg 73.8 kg Lungs are clear to percussion and auscultation. Chest x-ray reveals no pneumothorax. There is a question as to the positioning of the chest tube which was placed in the emergency room. - Labs 11/06/16 05:39 11/06/16 05:39 Lab Results, Last 24 hours 11/06/16 11/06/16 05:39 05:39 WBC 8.8 Hgb 13.1 Hct 41.0 Plt Count 182 Sodium 139 Potassium 4.3 Chloride 109 Carbon Dioxide 23 BUN 34 H Creatinine 0.89 Glucose 148 H Calcium 8.2 L Consult Discharge Plan - Plan Instructions: Traumatic Pneumothorax (DC), Traumatic Pneumothorax (GEN), Lung Cancer (DC), Lung Cancer (GEN), Hypothyroidism (DC), Chronic Obstructive Pulmonary Disease (DC), Chronic Hypertension (DC), Brain Metastasis (DC), Brain Metastasis (GEN) Referrals: Jacob Bernstein MD [Primary Care Provider] - José Malhotra MD [Non-Partnered Physician] - 11/15/16 3:00 pm
[2016-11-06] MEDS: Verapamil ER (24 HR) 240 MG TABLET.ER PO SCH (10:39)
[2016-11-06] MEDS: ZETIA 10 MG PO SCH (10:39)
--- NOTE | 2016-11-06 13:03 | Internal Med Progress Note ---
Date of Encounter: 11/06/16 Time of Encounter: 13:01 - Assessment and plan (1) Pneumothorax after biopsy Current Visit: Yes Status: Acute Assessment and plan: Left sided pneumothorax. repeat CXR showed resolution of pneumothorax after chest tube placement. Plan: CT surgery on board and following, appreciate recommendations. oxygen as needed. chest tube in place. 11/06/2016 Received a call from [facility]. X-rays system reviewed by myself. No obvious pneumothorax noted. Recommendation from cardiothoracic surgery appreciated. Plan: Possible home tomorrow. 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 MRI head showed multiple enhancing masses in both hemispheres. patient had biopsy done on 10/25/16, and recent PET scan showed large left sided pneumothorax, so patient was asked to come to the hospital for evaluation. There was also metabolically active disease to the right adrenal gland. Plan: will follow up with oncology outpatient. she is currently receiving brain radiation outpatient (3) COPD (chronic obstructive pulmonary disease) Current Visit: Yes Status: Acute Assessment and plan: does not appear to be in exacerbation. continue bronchodilators as needed continue oxygen supplementation as needed. patient is not on home oxygen. Qualifiers: COPD type: unspecified COPD Qualified Code(s): J44.9 - Chronic obstructive pulmonary disease, unspecified (4) Hypothyroidism Current Visit: Yes Status: Chronic Assessment and plan: continue home dose synthroid Qualifiers: Hypothyroidism type: acquired Qualified Code(s): E03.9 - Hypothyroidism, unspecified - Subjective Interval history: Patient seen and examined. Chart reviewed. Patient denies any chest pain, shortness of breath, dizziness or diarrhea. - Constitutional Vitals: Temp Pulse Resp BP Pulse Ox 97.8 F 89 15 146/80 93 11/06/16 11:00 11/06/16 11:00 11/06/16 11:00 11/06/16 11:00 11/06/16 11:00 General appearance: Present: cooperative, A&O X 3, pleasant, obese, answers questions appropriately - Head Head exam: Present: atraumatic, normocephalic - Eye Eye exam: Present: PERRL, conjuntiva pink, sclera anicteric Pupils: Present: PERRL - Neck Neck exam general surgery: Present: supple, trachea midline. Absent: lymphadenopathy - Respiratory Respiratory exam: Present: CTAB. Absent: accessory muscle use, rales, rhonchi, wheezes - Cardiovascular Cardiovascular exam: Present: RRR, +S1, +S2. Absent: diastolic murmur, gallop, rubs, systolic murmur - GI/Abdominal GI/Abdominal exam: Present: normal bowel sounds, soft, no peritoneal signs. Absent: distended, tenderness - Extremities Exam Extremities exam: Present: warm, radial pulses palpable and symetrical. Absent : calf tenderness, cyanotic, pedal edema - Neurological Exam Neurological exam: Present: CN II-XII intact, oriented X3, no focal deficits. Absent: pronater drift, facial droop, speech deficit - Skin Skin exam: Present: dry, intact Internal Medicine: Result - Labs CBC & Chem 7: 11/06/16 05:39 11/06/16 05:39 Labs: Short CBC 11/06/16 Range/Units 05:39 WBC 8.8 (4.3-11.1) K/mcL Hgb 13.1 (11.5-15.4) g/dL Hct 41.0 (35.3-44.9) % Plt Count 182 (140-400) K/mcL Neutrophils # 7.8 (1.6-8.9) K/mcL BMP 11/06/16 05:39 Sodium 139 Potassium 4.3 Chloride 109 Carbon Dioxide 23 BUN 34 H Creatinine 0.89 Glucose 148 H Calcium 8.2 L - ABG Interpretation ABG results: PT/INR, D-dimer PT 11.4 Seconds (9.4-12.1) 11/05/16 03:51 - Impressions Impressions Chest X-Ray 11/06/16 00:01 IMPRESSION: Chest tube is no longer projecting in the left pleural space. The tip projects over the left axillary region. No definite residual pneumothorax noted at this time. Rounded retrocardiac opacification persists although somewhat less prominent than comparison. Findings were discussed with the patient's nurse, Viri Dunn RN at 7:22 am on 11/06/2016. D/ / 11/06/2016 07:38:59 Alexsander Cutler MD / christel Interpreting Provider: Alexsander Cutler MD Consult Discharge Plan - Plan Instructions: Traumatic Pneumothorax (DC), Traumatic Pneumothorax (GEN), Lung Cancer (DC), Lung Cancer (GEN), Hypothyroidism (DC), Chronic Obstructive Pulmonary Disease (DC), Chronic Hypertension (DC), Brain Metastasis (DC), Brain Metastasis (GEN) Referrals: Jacob Bernstein MD [Primary Care Provider] - José Malhotra MD [Non-Partnered Physician] - 11/15/16 3:00 pm
[2016-11-07 04:50] LABS: Basophils % 0.1 %; Hematocrit 41.4 % (35.3-44.9); Hemoglobin 13.4 g/dL (11.5-15.4); Immature Granulocytes % 0.9 % (0-4); Lymphocytes # 0.5 K/mcL (0.6-4.6); Lymphocytes % 4.3 %; Mean Corpuscular HGB Conc 32.4 g/dL (31.6-35.5); Mean Corpuscular Hemoglobin 28.1 pg (28.0-33.3); Mean Corpuscular Volume 86.8 fL (83.0-100.0); Mean Platelet Volume 10.5 fL (9.4-12.4); Monocytes # 0.5 K/mcL (0.0-1.3); Monocytes % 4.3 %; Neutrophils # 9.8 K/mcL (1.6-8.9); Platelet Count 189 K/mcL (140-400); Red Blood Count 4.77 M/mcL (3.82-4.97); Segmented Neutrophils % 90.4 %
[2016-11-07 05:11] LABS: Alanine Aminotransferase 31 Units/L (0-55); Albumin 2.5 g/dL (3.5-5.0); Albumin/Globulin Ratio 0.9 (1.1-2.2); Alkaline Phosphatase 65 Units/L (38-126); Aspartate Amino Transferase 14 Units/L (5-34); BUN/Creatinine Ratio 36 (6-26); Bilirubin,Total 0.5 mg/dL (0.2-1.2); Blood Urea Nitrogen 37 mg/dL (7-20); Carbon Dioxide 23 mEq/L (19-29); Chloride 109 mEq/L (98-109); Globulin 2.7 g/dL (2.4-3.5); Glucose 138 mg/dL (70-99); Osmolality,Calculated 297 (280-300); Potassium 4.2 mEq/L (3.5-4.5); Sodium 138 mEq/L (136-145); Total Protein 5.2 g/dL (6.0-8.3); eGFR For African Americans > 60 (> 60); eGFR For Non-African Americans 51 (> 60)
[2016-11-07] MEDS: *HR* Heparin 5,000 UNIT/ML VIAL SQ SCH (06:19)
[2016-11-07 06:34] VITALS: BP 155/90
--- NOTE | 2016-11-07 08:22 | Cardiothoracic Progress Note ---
Date of Encounter: 11/07/16 Time of Encounter: 08:20 - Assessment and plan (1) Acute exacerbation of chronic obstructive airways disease Current Visit: Yes Status: Acute I removed the chest tube. We will check a stat portable chest x-ray. The patient can be discharged today. - Subjective Interval history: The patient has no complaints. Vital Signs, Last 4 Hours Temp Pulse Resp BP Pulse Ox 11/07/16 06:30 97.7 F 87 15 155/90 98 11/07/16 04:40 97.9 F 75 14 164/89 95 Oxgyen Flow Rate Oxygen Flow Rate (LPM) 2 Clinical Data, last 8 Hours Output, Chest Tube Drainage 0 Amount [Left Mid-Clavicular Chest #4] Weight 11/05/16 11/06/16 11/07/16 23:59 23:59 23:59 Weight 74.6 kg 73.8 kg 75.1 kg Lungs are clear to percussion and auscultation. Chest tube drainage is minimal and there is no air leak. Chest x-ray off suction reveals no pneumothorax. - Labs 11/07/16 03:34 11/07/16 03:34 Lab Results, Last 24 hours 11/07/16 11/07/16 03:34 03:34 WBC 10.9 Hgb 13.4 Hct 41.4 Plt Count 189 Sodium 138 Potassium 4.2 Chloride 109 Carbon Dioxide 23 BUN 37 H Creatinine 1.04 Glucose 138 H Calcium 8.0 L Total Bilirubin 0.5 AST 14 ALT 31 Alkaline Phosphatase 65 Consult Discharge Plan - Plan Instructions: Traumatic Pneumothorax (DC), Traumatic Pneumothorax (GEN), Lung Cancer (DC), Lung Cancer (GEN), Hypothyroidism (DC), Chronic Obstructive Pulmonary Disease (DC), Chronic Hypertension (DC), Brain Metastasis (DC), Brain Metastasis (GEN) Referrals: Jacob Bernstein MD [Primary Care Provider] - José Malhotra MD [Non-Partnered Physician] - 11/15/16 3:00 pm
--- NOTE | 2016-11-07 08:27 | Discharge Summary ---
Date of Encounter: 11/07/16 Time of Encounter: 08:24 - Discharge Diagnosis (1) Pneumothorax after biopsy Priority: Primary Status: Acute (2) Mass of lower lobe of left lung Priority: Secondary Status: Acute (3) COPD (chronic obstructive pulmonary disease) Priority: Secondary Status: Acute Qualifiers: COPD type: unspecified COPD Qualified Code(s): J44.9 - Chronic obstructive pulmonary disease, unspecified (4) Hypothyroidism Priority: Secondary Status: Chronic Qualifiers: Hypothyroidism type: acquired Qualified Code(s): E03.9 - Hypothyroidism, unspecified - Discharge Medications Home Medications: Acetaminophen [Tylenol] 500 mg PO HS 09/07/16 [History] Clopidogrel [Plavix] 75 mg PO DAILY 09/07/16 [History] Levothyroxine Sodium 75 mcg PO QAM 09/07/16 [History] Nitroglycerin [Nitrostat] 0.4 mg SL Q5M PRN 09/07/16 [History] Pravastatin Sodium 80 mg PO DAILY 09/07/16 [History] Verapamil ER (24 HR) [Calan SR] 240 mg PO DAILY 09/07/16 [History] Meclizine [Antivert] 12.5 mg PO DAILY 10/15/16 [History] Zolpidem [Ambien] 5 mg PO HS PRN #30 tablet 10/15/16 [Rx] Dexamethasone [Decadron] 4 mg PO TID #90 tab 10/25/16 [Rx] Docusate [Colace] 2 tab PO HS 11/01/16 [History] Hydromorphone HCl [Dilaudid] 2 mg PO Q4H PRN #60 tablet 11/01/16 [Rx] Morphine Sulfate SR (12 HR) [MS Contin] 15 mg PO BID #60 tablet.er 11/01/16 [Rx] Ezetimibe [Zetia] 10 mg PO DAILY 11/04/16 [History] Ipratropium/Albuterol Neb [Duoneb] 3 ml IH Q6HR PRN 11/04/16 [History] Temazepam [Restoril] 30 mg PO HS 11/04/16 [History] Allergies/Adverse Reactions: Allergies Oxycodone [From OxyContin] Adverse Reaction (Verified 11/01/16 12:22) See Comments personality changes "becomes mean" Date of admission: 11/04/16 16:32 Primary care physician: Jacob Bernstein MD Discharging clinician: Natan David - Patient Status Disposition: Home, Self-Care Condition: Fair Functional capacity at discharge: independent ambulation Overall status at discharge: patient is progressing back to baseline - Discharge Instructions Instructions: Traumatic Pneumothorax (DC), Traumatic Pneumothorax (GEN), Lung Cancer (DC), Lung Cancer (GEN), Hypothyroidism (DC), Chronic Obstructive Pulmonary Disease (DC), Chronic Hypertension (DC), Brain Metastasis (DC), Brain Metastasis (GEN) Follow Up With: Jacob Bernstein MD [Primary Care Provider] - José Malhotra MD [Non-Partnered Physician] - 11/15/16 3:00 pm Tiffanie Camejo MD [Partnered Physician] - - Diet and Activity Activity: increase activity as tolerated Diet: low fat, low cholesterol, low salt diet Interval History: Ms. Ellington is a 81 year old female presents from ED with chief complaint of shortness of breath and dyspnea related to pneumothorax following lung biopsy. Patient was recently diagnosed with brain cancer, suspected to be primary lung cancer. Underwent PET-CT scan yesterday to evaluate the lung cancer and a large left sided pneumothorax was incidentally found. Patient was sent to ED today for further management patient denies any chest pain or chest discomfort. Patient denies coughing, abdominal pain, nausea, vomiting, back pain, or any other pain-related concerns. Brain cancer was found previously. Acute onset of right leg numbness prompting CT scan which found cancer she is currently undergoing radiation treatment for this. The patient has a history of COPD, coronary artery disease, hyperlipidemia, hypertension, malignancy, and thyroid disease. Patient is a former smoker stating she smoked one pack per day, but currently does not smoke. Consult to cardiothoracic surgery ordered in ED. Hospital course: Patient to be placed in patient status continuous cardiac monitoring, continuous pulse ox monitoring, continuous vital sign monitoring. Patient to be monitored closely. Cardiothoracic placed right-sided chest tube. Pneumothorax was resolved. Patient tolerated procedure well. Patient has a symptomatic relief. This morning chest tube was pulled out. Plan We will repeat x-ray. Patient can go home. Patient will follow up with her primary care doctor in 1-2 weeks. Patient will follow up with her oncology in next 1-2 weeks. At the time of discharge all questions answered. Medical reconciliation was done. For the time of discharge, patient does not have any questions, concerns, updates or recommendation. - Time Spent with Patient Total time spent providing and/or coordinating discharge services: - Constitutional Vitals: Temp Pulse Resp BP Pulse Ox 97.7 F 87 15 155/90 98 11/07/16 06:30 11/07/16 06:30 11/07/16 06:30 11/07/16 06:30 11/07/16 06:30 General appearance: Present: cooperative, A&O X 3, pleasant, obese, answers questions appropriately - Head Head exam: Present: atraumatic, normocephalic - Eye Eye exam: Present: PERRL, conjuntiva pink, sclera anicteric Pupils: Present: PERRL - Neck Neck exam general surgery: Present: supple, trachea midline. Absent: lymphadenopathy - Respiratory Respiratory exam: Present: CTAB. Absent: accessory muscle use, rales, rhonchi, wheezes - Cardiovascular Cardiovascular exam: Present: RRR, +S1, +S2. Absent: diastolic murmur, gallop, rubs, systolic murmur - GI/Abdominal GI/Abdominal exam: Present: normal bowel sounds, soft, no peritoneal signs. Absent: distended, tenderness - Extremities Exam Extremities exam: Present: warm, radial pulses palpable and symetrical. Absent : calf tenderness, cyanotic, pedal edema - Neurological Exam Neurological exam: Present: CN II-XII intact, oriented X3, no focal deficits. Absent: pronater drift, facial droop, speech deficit - Skin Skin exam: Present: dry, intact
[2016-11-07] MEDS: Verapamil ER (24 HR) 240 MG TABLET.ER PO SCH (08:50)
[2016-11-07] MEDS: ZETIA 10 MG PO SCH (08:51)
== END 2016-11-07 11:00 | disposition home or self-care (01) | DRG 200 ==
LOC: 2NENU 10:14 → EMEROO 10:14 → 2NENU 15:30
PROVIDERS: ADMIT Hospitalist; ATTEND Internal Medicine

== ENCOUNTER 2016-11-21 09:51 | Inpatient (IN) ==
--- NOTE | 2016-11-21 10:04 | Emergency Department Note ---
Disposition Clinical Impression: Elevation of cardiac enzymes Contusion of pelvis Qualifiers: Encounter type: initial encounter Qualified Code(s): S30.0XXA - Contusion of lower back and pelvis, initial encounter Disposition: Admitted As Inpatient Condition: Fair Referrals: NO,PCP [Non-Partnered Physician] - Forms: ED Satisfaction Letter Time of Disposition: 11:38 Fall HPI - General Chief Complaint: ED Fall Stated Complaint: FALL Time Seen by Provider: 11/21/16 09:56 Source: patient, EMS Mode of arrival: EMS Limitations: no limitations Nursing Notes Reviewed: Yes Vital Signs Reviewed: Yes - History of Present Illness HPI Narrative: 81-year-old apparently got up this morning and fell. The patient has a history of numbness in the right leg in such couldn't feel her leg and fell was not able to get up off the floor. She was on the floor for approximately 4+ hours. He complains of pain in the suprapubic region. From records the patient is on Plavix. Pt Subjective Complaint: fall Onset (ago): hour(s) (4+) Fall From: standing Fall Witnessed: no Place Fall Occurred: home Loss of Consciousness: unsure Prolonged Down Time?: yes, hour(s) (4+) Symptoms Prior to Fall: none Context: tripped/slipped Location of injury: abdomen Severity: moderate Quality: aching Associated symptoms (after fall): Reports: abdominal pain - Related Data Home Medications Medication Instructions Recorded Confirmed Acetaminophen [Tylenol] 500 mg PO HS 09/07/16 11/04/16 Clopidogrel [Plavix] 75 mg PO DAILY 09/07/16 11/04/16 Levothyroxine Sodium 75 mcg PO QAM 09/07/16 11/04/16 Nitroglycerin [Nitrostat] 0.4 mg SL Q5M PRN 09/07/16 11/04/16 Pravastatin Sodium 80 mg PO DAILY 09/07/16 11/04/16 Verapamil ER (24 HR) [Calan SR] 240 mg PO DAILY 09/07/16 11/04/16 Meclizine [Antivert] 12.5 mg PO DAILY 10/15/16 11/04/16 Docusate [Colace] 2 tab PO HS 11/01/16 11/04/16 Ezetimibe [Zetia] 10 mg PO DAILY 11/04/16 11/04/16 Ipratropium/Albuterol Neb [Duoneb] 3 ml IH Q6HR PRN 11/04/16 11/04/16 Temazepam [Restoril] 30 mg PO HS 11/04/16 11/04/16 Previous Rx's Medication Instructions Recorded Zolpidem [Ambien] 5 mg PO HS PRN #30 tablet 10/15/16 Dexamethasone [Decadron] 4 mg PO TID #90 tab 10/25/16 Hydromorphone HCl [Dilaudid] 2 mg PO Q4H PRN #60 tablet 11/01/16 Morphine Sulfate SR (12 HR) [MS 15 mg PO BID #60 tablet.er 11/01/16 Contin] levETIRAcetam [Keppra] 500 mg PO Q12HR #60 tablet 11/08/16 Allergies Allergy/AdvReac Type Severity Reaction Status Date / Time Oxycodone [From OxyContin] AdvReac See Verified 11/01/16 12:22 Comments All systems ED: reviewed and negative except as stated. Constitutional: Denies: fever, chills, weakness, weight change Eyes: Denies: eye pain, eye discharge, vision change ENT ED: Denies: ear pain, throat pain, dental pain, hearing loss, epistaxis, congestion, dysphagia Cardiovascular: Denies: chest pain, palpitations, dyspnea on exertion, edema, syncope Respiratory: Denies: cough, dyspnea, wheezes, hemoptysis, stridor Gastrointestinal: Reports: abdominal pain. Denies: nausea, vomiting, diarrhea, constipation, hematemesis, melena, hematochezia Genitourinary: Denies: dysuria, frequency, hematuria, discharge Musculoskeletal: Denies: back pain, neck pain, arthralgia, myalgia Integumentary: Denies: rash, abrasion, lesions Neurological: Denies: headache, weakness, numbness, paresthesias, confusion, abnormal gait, vertigo Psychiatric: Denies: anxiety, depression, suicidal thoughts, homicidal thoughts , auditory hallucinations, visual hallucinations Endocrine: Denies: fatigue Hematological/Lymphatic: Denies: easy bleeding, easy bruising Allergic/Immunologic: Denies: facial swelling, urticaria Fall PMH - Past Medical History Medical history: Reports: COPD, coronary artery disease, hyperlipidemia, hypertension, malignancy, thyroid disease, other Surgical history: Reports: hysterectomy, knee replacement Psychiatric history: Reports: no psych history - Social History Smoking Status: Former smoker Alcohol use: Reports: none Drug use: Reports: none Physical Exam - General Limitations: no limitations General appearance: alert - Head Head exam: atraumatic, normocephalic, normal inspection - Eye Eye exam: Present: normal appearance, PERRL, EOMI - ENT ENT exam: normal exam, normal oropharynx, mucous membranes moist - Neck Neck exam: Present: normal inspection, full ROM, trachea midline - Chest Chest inspection: Present: normal inspection, symmetric chest wall rise - Respiratory Respiratory exam: Present: normal lung sounds bilaterally - Cardiovascular Cardiovascular exam: Present: regular rate, normal rhythm, normal heart sounds - Abdominal Exam Abdominal exam: Present: soft, tenderness. Absent: distention, guarding, rebound, rigidity Abdominal tenderness: Present: suprapubic - Extremities Exam Extremities exam: Present: normal inspection, full ROM. Absent: tenderness, pedal edema - Expanded Lower Extremity Exam Neurovascular/Tendon exam: Absent: motor deficit, sensory deficit, tendon deficit Gait: not tested/not observed - Back Exam Back exam: Present: normal inspection, full ROM. Absent: tenderness - Neurological Exam Neurological exam: Present: alert, oriented X3 - Psychiatric Psychiatric exam: Present: normal affect, normal mood - Skin Skin exam: Present: warm, dry, intact, normal color Course - Reevaluation(s) Reevaluation #1: 81-year-old with a fall with 4+ hours of down time. Patient's does have some renal insufficiency appears to be somewhat dehydrated. Patient is slightly tachycardic we'll give her fluids. Imaging shows no acute abnormality. Elevated cardiac enzymes may be a reflection of the renal insufficiency and dehydration. Time: 11:37 - Consultations Consultation #1: Discussed with Dr. Dixon, admit. Time: 11:38 Vital Signs Temperature 98.1 F 11/21/16 09:55 Pulse Rate 118 11/21/16 09:55 Respiratory Rate 20 11/21/16 09:55 Blood Pressure 110/70 11/21/16 09:55 O2 Sat by Pulse Oximetry 98 11/21/16 09:55 Temperature 98.1 F 11/21/16 09:55 Pulse Rate 121 11/21/16 10:54 Respiratory Rate 18 11/21/16 10:54 Blood Pressure 134/98 11/21/16 10:54 O2 Sat by Pulse Oximetry 97 11/21/16 10:54 Oxygen Delivery Oxygen Delivery Room Air Fall - Lab Data Result diagrams: 11/21/16 10:12 11/21/16 10:12 Lab Results 11/21/16 11/21/16 11/21/16 Range/Units 10:12 10:12 10:12 WBC 9.1 (4.3-11.1) K/mcL RBC 5.05 H (3.82-4.97) M/mcL Hgb 14.1 (11.5-15.4) g/dL Hct 43.7 (35.3-44.9) % MCV 86.5 (83.0-100.0) fL MCH 27.9 L (28.0-33.3) pg MCHC 32.3 (31.6-35.5) g/dL RDW 15.8 H (11.5-14.5) % Plt Count 308 (140-400) K/mcL MPV 9.9 (9.4-12.4) fL Immature Gran % 4.5 H (0-4) % Seg Neutrophils % 66.0 % Lymphocytes % 20.0 % Monocytes % 8.7 % Eosinophils % 0.2 % Basophils % 0.6 % Neutrophils # 6.0 (1.6-8.9) K/mcL Lymphocytes # 1.8 (0.6-4.6) K/mcL Monocytes # 0.8 (0.0-1.3) K/mcL Eosinophils # 0.0 (0.0-0.6) K/mcL Basophils # 0.1 (0.0-0.2) K/mcL PT 12.3 H (9.4-12.1) Seconds INR 1.1 APTT 28.0 (26.0-36.0) Seconds Sodium 138 (136-145) mEq/L Potassium 3.8 (3.5-4.5) mEq/L Chloride 103 (98-109) mEq/L Carbon Dioxide 23 (19-29) mEq/L BUN 26 H (7-20) mg/dL Creatinine 1.19 H (0.57-1.11) mg/dL Est GFR ( Amer) 53 L (> 60) Est GFR (Non-Af Amer) 43 L (> 60) BUN/Creatinine Ratio 22 (6-26) Glucose 100 H (70-99) mg/dL Calculated Osmolality 291 (280-300) Calcium 8.6 (8.6-10.8) mg/dL Creatine Kinase (29-168) Units/L Troponin I (0-0.03) ng/mL Urine Color (Yellow) Urine Clarity (Clear) Urine pH (5.0-8.0) pH Units Ur Specific Christoval (1.010-1.025) Urine Protein (Neg-Trace) mg/dL Urine Glucose (UA) (Normal) mg/dL Urine Ketones (Negative) mg/dL Urine Blood (Negative) Urine Nitrite (Negative) Urine Bilirubin (Negative) Urine Urobilinogen (Normal) mg/dL Ur Leukocyte Esterase (Negative) Urine Microscopic RBC (0-3) per hpf Ur Squamous Epith Cells (None-Few) per lpf Urine Bacteria (None-Few) per hpf Hyaline Casts (None-Few) per lpf Ur Culture Indicated? (NO) 11/21/16 11/21/16 11/21/16 Range/Units 10:12 10:12 10:59 WBC (4.3-11.1) K/mcL RBC (3.82-4.97) M/mcL Hgb (11.5-15.4) g/dL Hct (35.3-44.9) % MCV (83.0-100.0) fL MCH (28.0-33.3) pg MCHC (31.6-35.5) g/dL RDW (11.5-14.5) % Plt Count (140-400) K/mcL MPV (9.4-12.4) fL Immature Gran % (0-4) % Seg Neutrophils % % Lymphocytes % % Monocytes % % Eosinophils % % Basophils % % Neutrophils # (1.6-8.9) K/mcL Lymphocytes # (0.6-4.6) K/mcL Monocytes # (0.0-1.3) K/mcL Eosinophils # (0.0-0.6) K/mcL Basophils # (0.0-0.2) K/mcL PT (9.4-12.1) Seconds INR APTT (26.0-36.0) Seconds Sodium (136-145) mEq/L Potassium (3.5-4.5) mEq/L Chloride (98-109) mEq/L Carbon Dioxide (19-29) mEq/L BUN (7-20) mg/dL Creatinine (0.57-1.11) mg/dL Est GFR ( Amer) (> 60) Est GFR (Non-Af Amer) (> 60) BUN/Creatinine Ratio (6-26) Glucose (70-99) mg/dL Calculated Osmolality (280-300) Calcium (8.6-10.8) mg/dL Creatine Kinase 154 (29-168) Units/L Troponin I 0.05 H* (0-0.03) ng/mL Urine Color Dark Yellow (Yellow) Urine Clarity Clear (Clear) Urine pH 5.0 (5.0-8.0) pH Units Ur Specific Christoval 1.021 (1.010-1.025) Urine Protein Trace (Neg-Trace) mg/dL Urine Glucose (UA) Normal (Normal) mg/dL Urine Ketones Negative (Negative) mg/dL Urine Blood Negative (Negative) Urine Nitrite Negative (Negative) Urine Bilirubin Negative (Negative) Urine Urobilinogen Normal (Normal) mg/dL Ur Leukocyte Esterase Negative (Negative) Urine Microscopic RBC 0-3 (0-3) per hpf Ur Squamous Epith Cells Moderate H (None-Few) per lpf Urine Bacteria None Seen (None-Few) per hpf Hyaline Casts None Seen (None-Few) per lpf Ur Culture Indicated? NO (NO) - Radiology Data Radiology results reviewed: Yes I reviewed the patient's radiology results. Abdomen/Pelvis CT 11/21/16 10:00 IMPRESSION: 1. Soft tissue contusion adjacent to the left hip. Otherwise no acute findings within the chest, abdomen, and pelvis. 2. Left lower lobe mass and right adrenal nodule are consistent with known malignancy. There could be a new metastatic lesion within the right hepatic lobe. Consider nonemergent MRI for further evaluation. 3. Extensive sigmoid diverticulosis. 4. Extensive atherosclerotic disease. D/ / 11/21/2016 11:32:45 Jayden Solo MD / russell Interpreting Provider: Jayden Solo MD Cervical Spine CT 11/21/16 10:01 IMPRESSION: No acute abnormality of the cervical spine. D/ / Meseret Zepeda Cha, MD / Meseret Zepeda Cha, MD Interpreting Provider: Meseret Zepeda Cha, MD Head CT 11/21/16 10:01 IMPRESSION: No acute intracranial abnormality. Again identified are multiple bilateral hemispheric lesions suggestive of metastatic disease, not definitely changed since the prior study given differences in technique. D/ / Meseret Zepeda Cha, MD / Meseret Zepeda Cha, MD Interpreting Provider: Meseret Zepeda Cha, MD Chest CT 11/21/16 10:07 IMPRESSION: 1. Soft tissue contusion adjacent to the left hip. Otherwise no acute findings within the chest, abdomen, and pelvis. 2. Left lower lobe mass and right adrenal nodule are consistent with known malignancy. There could be a new metastatic lesion within the right hepatic lobe. Consider nonemergent MRI for further evaluation. 3. Extensive sigmoid diverticulosis. 4. Extensive atherosclerotic disease. D/ / 11/21/2016 11:32:45 Jayden Solo MD / russell Interpreting Provider: Jayden Solo MD Lumbar Spine CT 11/21/16 10:07 IMPRESSION: No acute findings within the thoracic and lumbar spine. D/ / Jayden Solo MD / Jayden Solo MD Interpreting Provider: Jayden Solo MD Thoracic Spine CT 11/21/16 10:07 IMPRESSION: No acute findings within the thoracic and lumbar spine. D/ / Jayden Solo MD / Jayden Solo MD Interpreting Provider: Jayden Solo MD - EKG Data EKG attestation: Yes I reviewed and interpreted this EKG. EKG shows normal: sinus rhythm Rate: normal Rhythm: NSR, PAC's Interpretation: no acute changes
[2016-11-21 10:18] LABS: Basophils # 0.1 K/mcL (0.0-0.2); Basophils % 0.6 %; Eosinophils % 0.2 %; Hematocrit 43.7 % (35.3-44.9); Hemoglobin 14.1 g/dL (11.5-15.4); Immature Granulocytes % 4.5 % (0-4); Lymphocytes # 1.8 K/mcL (0.6-4.6); Mean Corpuscular HGB Conc 32.3 g/dL (31.6-35.5); Mean Corpuscular Hemoglobin 27.9 pg (28.0-33.3); Mean Corpuscular Volume 86.5 fL (83.0-100.0); Mean Platelet Volume 9.9 fL (9.4-12.4); Monocytes # 0.8 K/mcL (0.0-1.3); Monocytes % 8.7 %; Platelet Count 308 K/mcL (140-400); Red Blood Count 5.05 M/mcL (3.82-4.97); Red Cell Distribution Width 15.8 % (11.5-14.5)
[2016-11-21 10:24] LABS: INR 1.1; Prothrombin Time 12.3 Seconds (9.4-12.1)
[2016-11-21 10:31] LABS: Calcium 8.6 mg/dL (8.6-10.8); Potassium 3.8 mEq/L (3.5-4.5)
[2016-11-21] MEDS ORDERED: 0.9 % Sodium Chloride 1,000 ML IVC ONE (10:49)
[2016-11-21 11:18] LABS: Bilirubin,Urine Negative (Negative); Blood,Urine Negative (Negative); Clarity,Urine Clear (Clear); Color,Urine Dark Yellow (Yellow); Glucose,Urine (UA) Normal (Normal); Ketones,Urine Negative (Negative); Leukocyte Esterase,Urine Negative (Negative); Nitrite,Urine Negative (Negative); Protein,Urine Trace mg/dL (Neg-Trace); Specific Gravity,Urine 1.021 (1.010-1.025); Urobilinogen,Urine Normal (Normal)
[2016-11-21 11:21] LABS: Bacteria,Urine None Seen per hpf (None-Few); Hyaline Casts,Urine None Seen per lpf (None-Few); RBC,Urine 0-3 per hpf (0-3); Squamous Epithelial Cell,Urine Moderate per lpf (None-Few)
[2016-11-21] MEDS ORDERED: Acetaminophen 325 MG TABLET PO PRN (13:01)
[2016-11-21] MEDS ORDERED: Naloxone 0.4 MG/ML INJ IVP PRN (13:01)
[2016-11-21] MEDS ORDERED: Nitroglycerin 0.4 MG TAB.SUBL SL PRN (13:05)
[2016-11-21] MEDS ORDERED: Ipratropium/Albuterol Neb 3 ML IH PRN (13:05)
[2016-11-21] MEDS ORDERED: *HR* HYDROmorphone 2 MG TABLET PO PRN (13:05)
--- NOTE | 2016-11-21 13:15 | Internal Med History&Physical ---
Date of Encounter: 11/21/16 Time of Encounter: 13:10 Assessment and Plan (1) Fall Current visit: Yes Status: Acute Patient reports falling at home overnight and was down for 4+ hours before her family came to check on her. Imaging was negative for acute fracture. She reports multiple, frequent falls at home related to her RLE weakness/numbness. Patient lives alone and family comes to check on her daily, but it seems she is no longer safe to live by herself. PT/OT consult SWK consult Palliative care consult. fall precautions. Qualifiers: Encounter type: initial encounter Qualified Code(s): W19.XXXA - Unspecified fall, initial encounter (2) Acute kidney injury Current visit: No Status: Acute Creatinine of 1.19, up from previous of 1.09. BUN elevated to 26. Patient tachycardic as well and MITUL likely due to dehydration. 1L fluid bolus given in ED 0.9NS at 100mL/hr Recheck chemistry tomorrow. (3) Dehydration Current visit: No Status: Acute Patient tachycardic and BUN/Cr elevated. Will hydrate with IV fluids. Recheck chemistry in the morning. (4) Elevation of cardiac enzymes Current visit: Yes Status: Acute Patient with troponin of 0.05. She denies any current chest pain, but reports she has it chronically on and off. EKG shows sinus tachycardia. Patient is dehydrated and suffered a fall at home. Troponin elevation likely related to the dehydration and tachycardia. Continuous cardiac monitor technician. serial troponins. repeat EKG in the morning. 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 She follows with oncology and completed whole brain radiation. She has right lower extremity numbness as a consequence of her brain lesions, and suffers frequent falls. Palliative Care consulted for discussion of goals of care and hospice option. (6) Contusion of pelvis Current visit: Yes Status: Acute Patient fell at home overnight. Imaging negative for acute fracture, but patient has a soft tissue contusion seen on CT. Continue home doses of pain medications for any pain. narcan PRN for respiratory depression. Qualifiers: Encounter type: initial encounter Qualified Code(s): S30.0XXA - Contusion of lower back and pelvis, initial encounter (7) CAD (coronary artery disease) Current visit: No Status: Chronic Continue home doses of aspirin, plavix, and statin. Qualifiers: Coronary Disease-Associated Artery/Lesion type: [place] artery [place] vs. transplanted heart: [place] heart Associated angina: without angina Qualified Code(s): I25.10 - Atherosclerotic heart disease of [place] coronary artery without angina pectoris (8) DVT prophylaxis Current visit: No Status: Acute Up to chair BID anti-embolic stockings Lovenox 40mg SQ daily Internal Medicine - H&P: HPI Chief complaint: fall Admitted From: Emergency Dept Plans for Post Hospital Care: Home History of present illness: Ms. Ellington is a 81 year old female with hypertension, hyperlipidemia, coronary artery disease, COPD, metastatic lung cancer with metastases to the brain presented to the emergency department today with complaints of fall. Patient reported she got up to use the commode next to her bed and fell. She lives alone and had to wait for one of her care to come to check on her and was down for approximately 4 hours, unable to get up. Patient reports she is falling frequently at home. Her right lower leg she describes as numb and paralyzed which has been going on for several months now and is thought to be related to her brain metastasis. She denies any lightheadedness, fainting, dizziness, headache. She denies any palpitations, nausea, vomiting, fever, chills, sweats. She reports occasional chest pain, and shortness of breath, but she says this is not any worse than her usual. Evaluation in emergency Department included CT of the head which redemonstrated brain metastasis not significantly changed from previous examination, CT of the cervical, thoracic and lumbar spine showed no acute abnormality. CT of the abdomen and pelvis redemonstrated known malignancy and left lower lobe of lung showed questionable metastasis to right lobe of liver. On exam, patient is alert and oriented, in no acute distress. Heart has irregular tachycardic rhythm. Past Med Surg Social Fam HX - Past Medical History Medical history: COPD, coronary artery disease, hyperlipidemia, hypertension, malignancy, thyroid disease, other Psychiatric history: no psych history - Past Surgical History Surgical History: hysterectomy, knee replacement - Social History Smoking Status: Former smoker Smokeless Tobacco Status: No Alcohol use: none Drug use: none - Family History Mother Family Member Ethnicity: Non- Living Status: Hx Family Cancer: Yes (Breast) Father Family Member Ethnicity: Non- Living Status: Hx Family Cardiac Disorders: Yes (Stroke) Brother Family Member Ethnicity: Non- Living Status: Hx Family Cardiac Disorders: Yes (HTN) Sister Family Member Ethnicity: Non- Living Status: Still Living Hx Family Cancer: Yes (Stage IV Lung Cancer) Internal Medicine - H&P: Meds Acetaminophen [Tylenol] 500 mg PO HS 09/07/16 [History] Clopidogrel [Plavix] 75 mg PO DAILY 09/07/16 [History] Levothyroxine Sodium 75 mcg PO QAM 09/07/16 [History] Nitroglycerin [Nitrostat] 0.4 mg SL Q5M PRN 09/07/16 [History] Pravastatin Sodium 80 mg PO DAILY 09/07/16 [History] Verapamil ER (24 HR) [Calan SR] 240 mg PO BID 09/07/16 [History] Meclizine [Antivert] 12.5 mg PO DAILY 10/15/16 [History] Zolpidem [Ambien] 5 mg PO HS PRN #30 tablet 10/15/16 [Rx] Dexamethasone [Decadron] 4 mg PO TID #90 tab 10/25/16 [Rx] Docusate [Colace] 200 mg PO HS 11/01/16 [History] Hydromorphone HCl [Dilaudid] 2 mg PO Q4H PRN #60 tablet 11/01/16 [Rx] Morphine Sulfate SR (12 HR) [MS Contin] 15 mg PO BID #60 tablet.er 11/01/16 [Rx] Ezetimibe [Zetia] 10 mg PO DAILY 11/04/16 [History] Ipratropium/Albuterol Neb [Duoneb] 3 ml IH Q6HR PRN 11/04/16 [History] Temazepam [Restoril] 30 mg PO HS 11/04/16 [History] levETIRAcetam [Keppra] 500 mg PO Q12HR #60 tablet 11/08/16 [Rx] Allergies Oxycodone [From OxyContin] Adverse Reaction (Verified 11/01/16 12:22) See Comments personality changes "becomes mean" All Systems PM: A 10-system review of systems was performed and is negative for pertinent findings except as documented above in the HPI. - Constitutional Constitutional: falls, no chills, no fever(s), no night sweats - EENT Eyes: no change in vision, no discharge, no pain, no photophobia Ears: no ear discharge, no ear pain, no tinnitus Nose, mouth and throat: no dysphagia, no nasal discharge, no neck pain, no sore throat - Cardiovascular Cardiovascular ROS IM: chest pain (on and off), dyspnea, no diaphoresis, no lightheadedness, no palpitations, no syncope - Respiratory Respiratory: dyspnea, no cough, no wheezing, no excessive phlegm production - Gastrointestinal Gastrointestinal: no abdominal pain, no diarrhea, no hematemesis, no hematochezia, no melena, no nausea, no vomiting - Genitourinary Genitourinary: no change in urinary stream, no dysuria, no flank pain, no hematuria - Musculoskeletal Musculoskeletal ROS IM: numbness (right lower leg), no tingling - Integumentary Integumentary IM: no rash, no unusual bruising - Neurological Neurological ROS: numbness (right lower leg), no confusion, no convulsions, no focal weakness, no tingling, no tremor(s) - Hematologic/Lymphatic Hematologic/Lymphatic: no easy bruising - Constitutional Vitals: Temp Pulse Resp BP Pulse Ox 98.1 F 121 18 134/98 97 11/21/16 09:55 11/21/16 10:54 11/21/16 10:54 11/21/16 10:54 11/21/16 10:54 General appearance: Present: A&O X 3, pleasant, no acute distress - Head Head exam: Present: atraumatic, normocephalic - Eye Eye exam: Present: PERRL, conjuntiva pink, sclera anicteric Pupils: Present: PERRL - Neck Neck exam general surgery: Present: supple, trachea midline. Absent: lymphadenopathy - Respiratory Respiratory exam: Present: CTAB. Absent: accessory muscle use, rales, rhonchi, wheezes - Cardiovascular Cardiovascular exam: Present: irregular rhythm, +S1, +S2, tachycardia. Absent: diastolic murmur, gallop, rubs, systolic murmur - GI/Abdominal GI/Abdominal exam: Present: normal bowel sounds, soft, no peritoneal signs. Absent: distended, tenderness - Extremities Exam Extremities exam: Present: normal capillary refill, radial pulses palpable and symetrical. Absent: calf tenderness, cyanotic, pedal edema - Neurological Exam Neurological exam: Present: CN II-XII intact, oriented X3. Absent: no focal deficits, facial droop, speech deficit - Expanded Neurological Exam Neuro motor strength exam: LUE: 5, RUE: 2/1, LLE: 5, RLE: 5 - Skin Skin exam: Present: dry, intact Internal Med - H&P Results - Labs CBC & Chem 7: 11/21/16 10:12 11/21/16 10:12 Labs: Short CBC 11/21/16 Range/Units 10:12 WBC 9.1 (4.3-11.1) K/mcL Hgb 14.1 (11.5-15.4) g/dL Hct 43.7 (35.3-44.9) % Plt Count 308 (140-400) K/mcL Neutrophils # 6.0 (1.6-8.9) K/mcL BMP 11/21/16 10:12 Sodium 138 Potassium 3.8 Chloride 103 Carbon Dioxide 23 BUN 26 H Creatinine 1.19 H Glucose 100 H Calcium 8.6 Cardiac Enzymes 11/21/16 Range/Units 10:12 Troponin I 0.05 H* (0-0.03) ng/mL Urine 11/21/16 Range/Units 10:59 Urine Color Dark Yellow (Yellow) Urine Clarity Clear (Clear) Urine pH 5.0 (5.0-8.0) pH Units Ur Specific [place] 1.021 (1.010-1.025) Urine Protein Trace (Neg-Trace) mg/dL Urine Glucose (UA) Normal (Normal) mg/dL - Impressions ITS Impressions Abdomen/Pelvis CT 11/21/16 10:00 IMPRESSION: 1. Soft tissue contusion adjacent to the left hip. Otherwise no acute findings within the chest, abdomen, and pelvis. 2. Left lower lobe mass and right adrenal nodule are consistent with known malignancy. There could be a new metastatic lesion within the right hepatic lobe. Consider nonemergent MRI for further evaluation. 3. Extensive sigmoid diverticulosis. 4. Extensive atherosclerotic disease. D/ / 11/21/2016 11:32:45 Jayden Solo MD / russell Interpreting Provider: Jayden Solo MD Cervical Spine CT 11/21/16 10:01 IMPRESSION: No acute abnormality of the cervical spine. D/ / Meseret Zepeda Cha, MD / Meseret Zepeda Cha, MD Interpreting Provider: Meseret Zepeda Cha, MD Head CT 11/21/16 10:01 IMPRESSION: No acute intracranial abnormality. Again identified are multiple bilateral hemispheric lesions suggestive of metastatic disease, not definitely changed since the prior study given differences in technique. D/ / Meseret Zepeda Cha, MD / Meseret Zepeda Cha, MD Interpreting Provider: Meseret Zepeda Cha, MD Chest CT 11/21/16 10:07 IMPRESSION: 1. Soft tissue contusion adjacent to the left hip. Otherwise no acute findings within the chest, abdomen, and pelvis. 2. Left lower lobe mass and right adrenal nodule are consistent with known malignancy. There could be a new metastatic lesion within the right hepatic lobe. Consider nonemergent MRI for further evaluation. 3. Extensive sigmoid diverticulosis. 4. Extensive atherosclerotic disease. D/ / 11/21/2016 11:32:45 Jayden Solo MD / russell Interpreting Provider: Jayden Solo MD Lumbar Spine CT 11/21/16 10:07 IMPRESSION: No acute findings within the thoracic and lumbar spine. D/ / 11/21/2016 11:34:13 Jayden Solo MD / manav Interpreting Provider: Jayden Solo MD Thoracic Spine CT 11/21/16 10:07 IMPRESSION: No acute findings within the thoracic and lumbar spine. D/ / 11/21/2016 11:34:13 Jayden Solo MD / manav Interpreting Provider: Jayden Solo MD - Diagnostic Studies CT scan - chest Additional comments: Chest CT 11/21/16 10:07 IMPRESSION: 1. Soft tissue contusion adjacent to the left hip. Otherwise no acute findings within the chest, abdomen, and pelvis. 2. Left lower lobe mass and right adrenal nodule are consistent with known malignancy. There could be a new metastatic lesion within the right hepatic lobe. Consider nonemergent MRI for further evaluation. 3. Extensive sigmoid diverticulosis. 4. Extensive atherosclerotic disease. D/ / 11/21/2016 11:32:45 Jayden Solo MD / russell Interpreting Provider: Jayden Solo MD CT scan - head Additional comments: Head CT 11/21/16 10:01 IMPRESSION: No acute intracranial abnormality. Again identified are multiple bilateral hemispheric lesions suggestive of metastatic disease, not definitely changed since the prior study given differences in technique. D/ / Meseret Zepeda Cha, MD / Meseret Zepeda Cha, MD Interpreting Provider: Meseret Zepeda Cha, MD CT scan - abdomen Additional comments: Abdomen/Pelvis CT 11/21/16 10:00 IMPRESSION: 1. Soft tissue contusion adjacent to the left hip. Otherwise no acute findings within the chest, abdomen, and pelvis. 2. Left lower lobe mass and right adrenal nodule are consistent with known malignancy. There could be a new metastatic lesion within the right hepatic lobe. Consider nonemergent MRI for further evaluation. 3. Extensive sigmoid diverticulosis. 4. Extensive atherosclerotic disease. D/ / 11/21/2016 11:32:45 Jayden Solo MD / russell Interpreting Provider: Jayden Solo MD Other Images Additional comments: Cervical Spine CT 11/21/16 10:01 IMPRESSION: No acute abnormality of the cervical spine. D/ / Meseret Zepeda Cha, MD / Meseret Zepeda Cha, MD Interpreting Provider: Meseret Zepeda Cha, MD Lumbar Spine CT 11/21/16 10:07 IMPRESSION: No acute findings within the thoracic and lumbar spine. D/ / 11/21/2016 11:34:13 Jayden Solo MD / manav Interpreting Provider: Jayden Solo MD Thoracic Spine CT 11/21/16 10:07
[2016-11-21] MEDS: levETIRAcetam 250 MG TABLET PO SCH ×2 (14:52→19:27)
[2016-11-21] MEDS: 0.9 % Sodium Chloride 1,000 ML IVC SCH (15:02)
[2016-11-21] MEDS: Sennosides/Docusate Sodium TABLET PO SCH (20:28)
[2016-11-21] MEDS: Verapamil ER (24 HR) 240 MG TABLET.ER PO SCH (20:28)
[2016-11-21] MEDS: Temazepam 15 MG CAPSULE PO SCH (20:29)
[2016-11-21] MEDS: *HR* Morphine Sulfate SR (12 HR) 15 MG TABLET.ER PO SCH (20:30)
[2016-11-22] MEDS: 0.9 % Sodium Chloride 1,000 ML IVC SCH ×2 (01:38→23:15)
[2016-11-22 05:54] LABS: Basophils % 0.4 %; Eosinophils % 0.2 %; Hematocrit 33.9 % (35.3-44.9); Immature Granulocytes % 4.4 % (0-4); Lymphocytes % 18.6 %; Mean Corpuscular HGB Conc 31.6 g/dL (31.6-35.5); Mean Corpuscular Hemoglobin 28.3 pg (28.0-33.3); Mean Corpuscular Volume 89.7 fL (83.0-100.0); Mean Platelet Volume 9.7 fL (9.4-12.4); Monocytes # 0.3 K/mcL (0.0-1.3); Monocytes % 6.3 %; Neutrophils # 3.8 K/mcL (1.6-8.9); Platelet Count 250 K/mcL (140-400); Red Blood Count 3.78 M/mcL (3.82-4.97); Segmented Neutrophils % 70.1 %
[2016-11-22 06:04] LABS: Hemoglobin 10.7 g/dL (11.5-15.4)
[2016-11-22] MEDS: levETIRAcetam 250 MG TABLET PO SCH ×2 (06:05→18:36)
[2016-11-22] MEDS: *HR* Enoxaparin 40 MG/0.4 ML SYRINGE SQ SCH (06:05)
[2016-11-22 06:13] LABS: BUN/Creatinine Ratio 23 (6-26); Blood Urea Nitrogen 19 mg/dL (7-20); Calcium 7.6 mg/dL (8.6-10.8); Carbon Dioxide 21 mEq/L (19-29); Chloride 110 mEq/L (98-109); Glucose 115 mg/dL (70-99); Osmolality,Calculated 291 (280-300); Potassium 4.2 mEq/L (3.5-4.5); Sodium 139 mEq/L (136-145); eGFR For African Americans > 60 (> 60); eGFR For Non-African Americans > 60 (> 60)
[2016-11-22 06:30] LABS: Platelet Estimate Normal (Normal)
[2016-11-22] MEDS: Verapamil ER (24 HR) 240 MG TABLET.ER PO SCH ×2 (08:53→21:07)
[2016-11-22] MEDS: Sennosides/Docusate Sodium TABLET PO SCH ×2 (08:53→21:06)
[2016-11-22] MEDS: *HR* Morphine Sulfate SR (12 HR) 15 MG TABLET.ER PO SCH ×2 (08:53→21:06)
[2016-11-22] MEDS: NON-FORMULARY MEDICATION 1 EACH EACH PO SCH (08:54)
--- NOTE | 2016-11-22 10:34 | Internal Med Progress Note ---
Date of Encounter: 11/22/16 Time of Encounter: 10:15 - Assessment and plan (1) Mass of lower lobe of left lung Current Visit: No Status: Chronic Assessment and plan: Metastatic carcinoma of the left lung with metastasis to brain, and now to the liver. In review for most recent visit with oncology on 11/16/16, there does not appear to be any further treatment regarding her brain metastasis. Patient finished her radiation last week and is continuing to endorse fatigue and weakness and unable to ambulate independently. She cannot move her right leg and has trouble using her left arm. She is also not eating and drinks 4-6 Ensures daily. She currently lives alone which does not appear safe for her given that she fell and was on the floor for 4 hours before she was found. OT and PT are on board. Palliative care is also on board. Oncology also on board. After my discussion with her, the patient was very clear that she did not one anything to be done and that she simply wants to be left alone so that she can "pass on." She did ask for euthanasia. She also added "I'm the biggest bitch you've ever met." Patient reassured that explaining her exact wishes in no way makes her inappropriate. It does appear as if there is some discord between the patient and her family. In her most recent appointment with oncology, she stated she did not want anymore treatment and states she had only been doing treatment up to this point because her children wanted her to. We will have several plans of care meetings in the upcoming days with oncology, palliative care, patient and the family. Abdominal, pelvic, chest CT revealed stable left lower lobe mass, adrenal nodule, and possible new metastasis to the liver. CT of cervical, lumbar, and thoracic spines unremarkable for acute processes. Head CT negative for acute processes and again identified multiple metastasis areas. ITS Impressions Abdomen/Pelvis CT 11/21/16 10:00 IMPRESSION: 1. Soft tissue contusion adjacent to the left hip. Otherwise no acute findings within the chest, abdomen, and pelvis. 2. Left lower lobe mass and right adrenal nodule are consistent with known malignancy. There could be a new metastatic lesion within the right hepatic lobe. Consider nonemergent [facility] liver MRI for further evaluation. 3. Extensive sigmoid diverticulosis. 4. Extensive atherosclerotic disease. D/ / 11/21/2016 11:32:45 Jayden Solo MD / russell Interpreting Provider: Jayden Solo MD Cervical Spine CT 11/21/16 10:01 IMPRESSION: No acute abnormality of the cervical spine. D/ / Meseret Zepeda Cha, MD / Meseret Zepeda Cha, MD Interpreting Provider: Meseret Zepeda Cha, MD Head CT 11/21/16 10:01 IMPRESSION: No acute intracranial abnormality. Again identified are multiple bilateral hemispheric lesions suggestive of metastatic disease, not definitely changed since the prior study given differences in technique. D/ / Meseret Zepeda Cha, MD / Meseret Zepeda Cha, MD Interpreting Provider: Meseret Zepeda Cha, MD Chest CT 11/21/16 10:07 IMPRESSION: 1. Soft tissue contusion adjacent to the left hip. Otherwise no acute findings within the chest, abdomen, and pelvis. 2. Left lower lobe mass and right adrenal nodule are consistent with known malignancy. There could be a new metastatic lesion within the right hepatic lobe. Consider nonemergent [facility] liver MRI for further evaluation. 3. Extensive sigmoid diverticulosis. 4. Extensive atherosclerotic disease. D/ / 11/21/2016 11:32:45 Jayden Solo MD / russell Interpreting Provider: Jayden Solo MD Lumbar Spine CT 11/21/16 10:07 IMPRESSION: No acute findings within the thoracic and lumbar spine. D/ / 11/21/2016 11:34:13 Jayden Solo MD / earnold Interpreting Provider: Jayden Solo MD Thoracic Spine CT 11/21/16 10:07 IMPRESSION: No acute findings within the thoracic and lumbar spine. D/ / 11/21/2016 11:34:13 Jayden Solo MD / earnold Interpreting Provider: Jayden Solo MD (2) Brain metastases Current Visit: No Status: Chronic (3) Liver metastasis Current Visit: Yes Status: Acute (4) Advanced directives, counseling/discussion Current Visit: No Status: Acute (5) Anorexia Current Visit: Yes Status: Chronic Assessment and plan: acute on chronic. Patient stating she simply does not have an appetite and does not want to eat. She denies and nausea or vomiting. Appetite stimulants offered but she declined. She does drink Ensures at home- will order while admitted. (6) Elevation of cardiac enzymes Current Visit: Yes Status: Acute Assessment and plan: Mild, adynamic, stable. Patient denies chest pain or shortness of breath. Likely secondary to dehydration, acute kidney injury resolved. Low suspicion for ACS. (7) Fall Current Visit: Yes Status: Acute Qualifiers: Encounter type: initial encounter Qualified Code(s): W19.XXXA - Unspecified fall, initial encounter (8) Acute kidney injury Current Visit: No Status: Resolved (9) Dehydration Current Visit: No Status: Resolved (10) COPD (chronic obstructive pulmonary disease) Current Visit: No Status: Chronic Assessment and plan: no acute exacerbation. patient denies shortness of breath above her norm Qualifiers: COPD type: unspecified COPD Qualified Code(s): J44.9 - Chronic obstructive pulmonary disease, unspecified (11) DVT prophylaxis Current Visit: No Status: Acute Assessment and plan: Subcutaneous Lovenox (12) CAD (coronary artery disease) Current Visit: No Status: Chronic Assessment and plan: patient denies chest pain or shortness of breath Qualifiers: Coronary Disease-Associated Artery/Lesion type: [place] artery [place] vs. transplanted heart: [place] heart Associated angina: without angina Qualified Code(s): I25.10 - Atherosclerotic heart disease of [place] coronary artery without angina pectoris (13) Hypertension Current Visit: No Status: Chronic Assessment and plan: Controlled. We will continue to trend and adjust medications as indicated. Qualifiers: Hypertension type: essential hypertension Qualified Code(s): I10 - Essential (primary) hypertension (14) Hypothyroidism Current Visit: No Status: Chronic Assessment and plan: TSH checked last month, normal Qualifiers: Hypothyroidism type: acquired Qualified Code(s): E03.9 - Hypothyroidism, unspecified - Subjective Interval history: Patient seen and examined. On examination, patient is sitting upright in bed with her eyes closed. Patient stating she wants to be left alone and she wants to rest. She has 3 family members at the bedside. Patient is stating that she wants to be left alone so that she can "pass on." Patient stating that she is sick, tired, and no longer wants any treatments. She is requesting for me to "euthanizer" her. Her family noted to be shaking their heads and disagreeing with patient's wishes. She states that she is not eating stating that she simply does not have an appetite. She denies nausea. She does not want appetite stimulants. - Constitutional Vitals: Temp Pulse Resp BP Pulse Ox 97.8 F 68 16 126/72 94 11/22/16 07:00 11/22/16 09:02 11/22/16 09:02 11/22/16 09:02 11/22/16 09:02 General appearance: Present: A&O X 3, no acute distress, answers questions appropriately - Head Head exam: Present: atraumatic, normocephalic - Eye Eye exam: Present: PERRL, conjuntiva pink, sclera anicteric Pupils: Present: PERRL - Neck Neck exam general surgery: Present: supple, trachea midline. Absent: lymphadenopathy - Respiratory Respiratory exam: Present: decreased breath sounds. Absent: accessory muscle use, rales, respiratory distress, rhonchi, wheezes - Cardiovascular Cardiovascular exam: Present: RRR, +S1, +S2. Absent: diastolic murmur, gallop, rubs, systolic murmur - GI/Abdominal GI/Abdominal exam: Present: normal bowel sounds, soft, no peritoneal signs. Absent: distended, tenderness - Extremities Exam Extremities exam: Present: warm, radial pulses palpable and symetrical. Absent : calf tenderness, cyanotic - Neurological Exam Neurological exam: Present: alert, CN II-XII intact, oriented X3. Absent: normal gait, no focal deficits, strengths equal and symetr throughout, pronater drift, facial droop, speech deficit - Psychiatric Psychiatric exam: Present: agitated, depressed, suicidal ideation (requesting to be euthanized) - Skin Skin exam: Present: dry, intact, pallor, warm Internal Medicine: Result - Labs CBC & Chem 7: 11/22/16 04:59 11/22/16 04:59 Labs: Short CBC 11/22/16 Range/Units 04:59 WBC 5.4 (4.3-11.1) K/mcL Hgb 10.7 L D (11.5-15.4) g/dL Hct 33.9 L (35.3-44.9) % Plt Count 250 (140-400) K/mcL Neutrophils # 3.8 (1.6-8.9) K/mcL BMP 11/22/16 04:59 Sodium 139 Potassium 4.2 Chloride 110 H Carbon Dioxide 21 BUN 19 Creatinine 0.84 Glucose 115 H Calcium 7.6 L Cardiac Enzymes 11/21/16 11/21/16 Range/Units 15:57 21:58 Troponin I 0.06 H* 0.04 H* (0-0.03) ng/mL - ABG Interpretation ABG results: PT/INR, D-dimer PT 12.3 Seconds (9.4-12.1) H 11/21/16 10:12 Consult Discharge Plan - Plan Referrals: José Malhotra MD [Non-Partnered Physician] - 12/02/16 10:00 am
[2016-11-22] MEDS ORDERED: Ondansetron 4 MG/2 ML VIAL IVP PRN (10:56)
[2016-11-22] MEDS ORDERED: *HR* Promethazine 25 MG/ML VIAL IVP PRN (10:56)
--- NOTE | 2016-11-22 10:59 | Palliative - Consult Note ---
Date of Encounter: 11/22/16 Time of Encounter: 10:30 - Assessment and Plan (1) Acute kidney injury Current Visit: No Status: Resolved Assessment and plan: Most likely related to poor by mouth intake. Fluid given and labs are now better. Plan per hospitalist team. (2) Brain metastases Current Visit: No Status: Chronic Assessment and plan: The patient has already undergone whole brain radiation and per the family has no plans to do anything further. Right lower extremity numbness is a result of her brain lesions and is the cause of her frequent falls I believe. She wishes to have no further treatment for this. And would like to consider hospice. (3) Advanced directives, counseling/discussion Current Visit: No Status: Acute Assessment and plan: The patient is already DNR CCA, after further discussion with patient and family we added DNI to this. He would like to discuss hospice, patient would like to go home, over this may not be possible as the family cannot provide 24 7 care in the home possibly even with hospice as we will check into this further I have discussed this with social work they are working on it as well. (4) Fall Current Visit: Yes Status: Acute Assessment and plan: In all likelihood this is related back to her brain metastases, patient does not wish to have any further care for this. Patient is certainly hospice appropriate if a safe action can be made up for her. Qualifiers: Encounter type: initial encounter Qualified Code(s): W19.XXXA - Unspecified fall, initial encounter (5) Anorexia Current Visit: Yes Status: Chronic Assessment and plan: Secondary to the cancer, will try some mirtazapine as the patient may also be somewhat depressed Palliative-CN HPI - Data of Consult Patient: new to practice Requesting Physician: Patricia Titus Primary Care Provider: Jacob Bernstein MD - Consult Narrative Palliative Care/Comfort Measures: Palliative care Reason for consult: Also care, hospice questions History of present illness: Ms. Ellington is a 81 year old female Patient has a history of metastatic lung cancer with metastases to the as well as its to the liver. Reports falling at home and was down for about 4 hours before her family was able to come in and check on her up was negative for however she did have multiple falls. Patient has been through chemotherapy and radiation therapy and at this time she does not seem to wish to continue to do these. As been living at home alone and her family comes over and checks on her very frequently approximately every 3-4 hours but yesterday she fell and was not able to get up and could not alert her family. Denied any lightheadedness fating dizziness or headache she denies any palpitations nausea vomiting fever chills or sweats. He reports some chest pain or shortness of breath but not any worse than her usual. He wakes in the ED showed a seat CT scan redemonstrated brain metastases and a thickened change. CT of the cervical and thoracic lumbar spine no acute abnormalities. The abdomen and pelvis redemonstrated known malignancy in the left lower lobe questionable area of metastasis to the liver. Patient had discussed with Dr. Camejo her oncologist about not [place] to go any further with therapy. And he had discussed hospice at that time however that that time the patient did not wish to avail herself of hospice but did want to be just taking care of have her needs met and be able to pass at home. She comes in the hospital now with increasing weakness and unable to walk for approximately the last week if not we can a half. She does not complaining of any pain, however is expressed an interest in no further aggressive care. She has stated to the nursing staff she is okay with alf, when I was in the room alf was not an option. There is no family can stay with her, however they do frequently check on her. CC: Patricia Titus Weakness Past Med Surg Social Fam HX - Past Medical History Medical history: COPD, coronary artery disease, hyperlipidemia, hypertension, malignancy, thyroid disease, other Psychiatric history: no psych history - Past Surgical History Surgical History: hysterectomy, knee replacement - Social History Smoking Status: Former smoker Smokeless Tobacco Status: No Alcohol use: none Drug use: none - Family History Mother Family Member Ethnicity: Non- Living Status: Hx Family Cancer: Yes (Breast) Father Family Member Ethnicity: Non- Living Status: Hx Family Cardiac Disorders: Yes (Stroke) Brother Family Member Ethnicity: Non- Living Status: Hx Family Cardiac Disorders: Yes (HTN) Sister Family Member Ethnicity: Non- Living Status: Still Living Hx Family Cancer: Yes (Stage IV Lung Cancer) Medications and Allergies Acetaminophen [Tylenol] 500 mg PO HS 09/07/16 [History] Clopidogrel [Plavix] 75 mg PO DAILY 09/07/16 [History] Levothyroxine Sodium 75 mcg PO QAM 09/07/16 [History] Nitroglycerin [Nitrostat] 0.4 mg SL Q5M PRN 09/07/16 [History] Pravastatin Sodium 80 mg PO DAILY 09/07/16 [History] Verapamil ER (24 HR) [Calan SR] 240 mg PO BID 09/07/16 [History] Meclizine [Antivert] 12.5 mg PO DAILY 10/15/16 [History] Zolpidem [Ambien] 5 mg PO HS PRN #30 tablet 10/15/16 [Rx] Dexamethasone [Decadron] 4 mg PO TID #90 tab 10/25/16 [Rx] Docusate [Colace] 200 mg PO HS 11/01/16 [History] Hydromorphone HCl [Dilaudid] 2 mg PO Q4H PRN #60 tablet 11/01/16 [Rx] Morphine Sulfate SR (12 HR) [MS Contin] 15 mg PO BID #60 tablet.er 11/01/16 [Rx] Ezetimibe [Zetia] 10 mg PO DAILY 11/04/16 [History] Ipratropium/Albuterol Neb [Duoneb] 3 ml IH Q6HR PRN 11/04/16 [History] Temazepam [Restoril] 30 mg PO HS 11/04/16 [History] levETIRAcetam [Keppra] 500 mg PO Q12HR #60 tablet 11/08/16 [Rx] Allergies Oxycodone [From OxyContin] Adverse Reaction (Verified 11/01/16 12:22) See Comments personality changes "becomes mean" - Constitutional Constitutional ROS PAL: anorexia - EENT Eyes: no discharge, no dry eye Ears: no ear discharge, no ear pain Ears, nose, mouth, throat: no facial pain, no hoarseness, no lip swelling - Cardiovascular Cardiovascular ROS: as per HPI - Respiratory Respiratory: dyspnea, no cough, no wheezing, no excessive phlegm production - Gastrointestinal Gastrointestinal: constipation, no abdominal pain, no nausea, no vomiting - Genitourinary Palliative ROS female: no urinary frequency, no urinary hesitancy, no urinary incontinence, no urinary urgency - Musculoskeletal Musculoskeletal ROS IM: muscle weakness (And tingling in the right leg. Patient is not able to ambulate due to weakness in the right leg) - Integumentary ROS Integumentary: no rash, no skin pain, no skin ulcer - Neurological Neurological ROS: abnormal gait, frequent falls, numbness, paresthesias - Psychiatric Psychiatric general PM: no anxiety, no depression - Endocrine Endocrine IM: other (Positive for thyroid disease) Palliative Care-Exam - Constitutional Vitals: Temp Pulse Resp BP Pulse Ox 97.8 F 68 16 126/72 94 11/22/16 07:00 11/22/16 09:02 11/22/16 09:02 11/22/16 09:02 11/22/16 09:02 General appearance: Present: no acute distress - Eye Eye exam: Present: normal appearance - ENT ENT exam: Present: mucous membranes moist - Respiratory Respiratory exam: Present: CTAB - Cardiovascular Cardiovascular exam: Present: irregular rhythm - GI/Abdominal Exam GI/Abdominal exam: Present: normal bowel sounds, soft. Absent: tenderness - Extremities Exam Extremities exam: Present: normal inspection. Absent: pedal edema, tenderness - Neurological Exam Neurological exam: Present: alert, motor sensory deficit (Right leg numbness unable to ambulate) - Psychiatric Psychiatric exam: Absent: agitated, anxious - Skin Skin exam: Present: dry, warm Internal Medicine - CN: Reslt - Labs CBC & Chem 7: 11/22/16 04:59 11/22/16 04:59 Labs: Short CBC 11/22/16 Range/Units 04:59 WBC 5.4 (4.3-11.1) K/mcL Hgb 10.7 L D (11.5-15.4) g/dL Hct 33.9 L (35.3-44.9) % Plt Count 250 (140-400) K/mcL Neutrophils # 3.8 (1.6-8.9) K/mcL BMP 11/22/16 04:59 Sodium 139 Potassium 4.2 Chloride 110 H Carbon Dioxide 21 BUN 19 Creatinine 0.84 Glucose 115 H Calcium 7.6 L Cardiac Enzymes 11/21/16 11/21/16 Range/Units 15:57 21:58 Troponin I 0.06 H* 0.04 H* (0-0.03) ng/mL - ABG Interpretation ABG results: PT/INR, D-dimer PT 12.3 Seconds (9.4-12.1) H 11/21/16 10:12 Consult Discharge Plan - Plan Referrals: José Malhotra MD [Non-Partnered Physician] - 12/02/16 10:00 am Palliative Quality Palliative Quality: Screen for Code Status: Yes, Screen for Goals of Care: Yes, Screen for Pain: Yes, If Pain Regimen Started, Initiate Bowel Regimen: Yes, Screen for Nausea/Vomitting: Yes Code Status: 11/21/16 13:01 Resuscitation Status: Active [RES] Routine Resuscitation Status: [id number] Comment:
--- NOTE | 2016-11-22 12:22 | Oncology Inp Consult Note ---
<Roderick Patterson - Last Filed: 11/22/16 14:20> Date of Encounter: 11/22/16 Time of Encounter: 12:18 Assessment and Plan (1) Mass of lower lobe of left lung Status: Chronic Assessment and plan: Her falls are likely due to her brain mets from primary lung cancer; there is also possible new mets to her liver as seen on CT She has already completed a 15 day course of whole brain radiation last week and is not interested any further chemo/radiation anymore Palliative care consulted, will defer to them for transition over to hospice if appropriate; she desires to ultimately go home - Data of Consult Patient: known to practice within the last 3 years Consult date: 11/22/16 Requesting Physician: Patricia Titus Primary Care Provider: Jacob Bernstein MD - Consult Narrative Reason for consult: discuss with family History of present illness: Ms. Ellington is a 81 year old female who presents from home after sustaining multiple falls in the past week. She lives alone but does have her family come by on a daily basis. She states that she was trying to use her bedside commode in the middle of the night but her right leg gave out and she fell. Denies head trauma. She does have history of lung cancer with mets to brain and underwent 15 days of whole brain radiation and completed this on 11/11. CT scans during this visit re-demonstrated a LLL mass and right adrenal mets, but also showed a new right hepatic lobe lesion suspicious for malignancy. At this time, patient is not complaining of any pain or problems breathing, but does have decreased appetite although she has gained 3 pounds in a last several weeks while drinking Ensure. She is adamant about not wanting any type of treatment with chemo/radiation and repeatedly said she "just wants to go". Palliative care has met with patient and her family and will start the process of transitioning to hospice, and the patient desires to go home. Past Med Surg Social Fam HX - Past Medical History Medical history: COPD, coronary artery disease, hyperlipidemia, hypertension, malignancy, thyroid disease, other Psychiatric history: no psych history - Past Surgical History Surgical History: hysterectomy, knee replacement - Social History Smoking Status: Former smoker Smokeless Tobacco Status: No Alcohol use: none Drug use: none - Family History Mother Family Member Ethnicity: Non- Living Status: Hx Family Cancer: Yes (Breast) Father Family Member Ethnicity: Non- Living Status: Hx Family Cardiac Disorders: Yes (Stroke) Brother Family Member Ethnicity: Non- Living Status: Hx Family Cardiac Disorders: Yes (HTN) Sister Family Member Ethnicity: Non- Living Status: Still Living Hx Family Cancer: Yes (Stage IV Lung Cancer) Medications and Allergies Acetaminophen [Tylenol] 500 mg PO HS 09/07/16 [History] Clopidogrel [Plavix] 75 mg PO DAILY 09/07/16 [History] Levothyroxine Sodium 75 mcg PO QAM 09/07/16 [History] Nitroglycerin [Nitrostat] 0.4 mg SL Q5M PRN 09/07/16 [History] Pravastatin Sodium 80 mg PO DAILY 09/07/16 [History] Verapamil ER (24 HR) [Calan SR] 240 mg PO BID 09/07/16 [History] Meclizine [Antivert] 12.5 mg PO DAILY 10/15/16 [History] Zolpidem [Ambien] 5 mg PO HS PRN #30 tablet 10/15/16 [Rx] Dexamethasone [Decadron] 4 mg PO TID #90 tab 10/25/16 [Rx] Docusate [Colace] 200 mg PO HS 11/01/16 [History] Hydromorphone HCl [Dilaudid] 2 mg PO Q4H PRN #60 tablet 11/01/16 [Rx] Morphine Sulfate SR (12 HR) [MS Contin] 15 mg PO BID #60 tablet.er 11/01/16 [Rx] Ezetimibe [Zetia] 10 mg PO DAILY 11/04/16 [History] Ipratropium/Albuterol Neb [Duoneb] 3 ml IH Q6HR PRN 11/04/16 [History] Temazepam [Restoril] 30 mg PO HS 11/04/16 [History] levETIRAcetam [Keppra] 500 mg PO Q12HR #60 tablet 11/08/16 [Rx] Allergies Oxycodone [From OxyContin] Adverse Reaction (Verified 11/01/16 12:22) See Comments personality changes "becomes mean" Constitutional: Present: frequent falls, weakness. Absent: fever(s), headache(s ) Eyes: Absent: blurry vision, diplopia, tunnel vision Cardiovascular: Absent: chest pain, dyspnea, pedal edema, syncope Respiratory: Absent: dyspnea, wheezing Gastrointestinal: Present: constipation. Absent: abdominal pain, diarrhea, nausea, vomiting Genitourinary: Absent: dysuria, hematuria Musculoskeletal: Present: numbness (right leg) Neurological: Present: frequent falls, weakness. Absent: abnormal speech, confusion, memory loss Psychiatric: Present: hopelessness Oncology - Exam - Constitutional Vitals: Temp Pulse Resp BP Pulse Ox 97.7 F 75 16 135/70 95 11/22/16 11:33 11/22/16 11:33 11/22/16 11:33 11/22/16 11:33 11/22/16 11:33 General appearance: no acute distress, obese, no febrile - Head Head exam: Present: atraumatic, normocephalic - Eye Eye exam: Present: EOMI, sclera anicteric - Respiratory Respiratory exam: Present: CTAB. Absent: accessory muscle use, rales, rhonchi - Cardiovascular Cardiovascular exam: Present: irregular rhythm, +S1, +S2 - GI/Abdominal GI/Abdominal exam: Present: normal bowel sounds, soft. Absent: firm, guarding, tenderness - Extremities Exam Extremities exam: Absent: pedal edema, tenderness - Neurological Exam Neurological exam: Present: alert, motor sensory deficit (numbness of right leg) , oriented X3. Absent: facial droop, speech deficit - Psychiatric Psychiatric exam: Present: depressed, normal affect Oncology - Results - Labs Labs: Short CBC 11/22/16 Range/Units 04:59 WBC 5.4 (4.3-11.1) K/mcL Hgb 10.7 L D (11.5-15.4) g/dL Hct 33.9 L (35.3-44.9) % Plt Count 250 (140-400) K/mcL Neutrophils # 3.8 (1.6-8.9) K/mcL BMP 11/22/16 04:59 Sodium 139 Potassium 4.2 Chloride 110 H Carbon Dioxide 21 BUN 19 Creatinine 0.84 Glucose 115 H Calcium 7.6 L Cardiac Enzymes 11/21/16 11/21/16 Range/Units 15:57 21:58 Troponin I 0.06 H* 0.04 H* (0-0.03) ng/mL Consult Discharge Plan - Plan Referrals: José Malhotra MD [Non-Partnered Physician] - 12/02/16 10:00 am <HomeroChinobonnie - Last Filed: 11/22/16 17:31> Date of Encounter: 11/22/16 Assessment and Plan (1) Brain metastases Status: Chronic - Data of Consult Requesting Physician: Patricia Titus Primary Care Provider: Jacob Bernstein MD - Consult Narrative History of present illness: I have seen examined patient myself, reviewed above history, physical exam findings and agree. I have discussed plan of care with Roderick Werner in detail and I am in agreement with his Impression and plan which reflects my assessment and plan of care. She has f/u appt with oncology in and wishes to keep that. Patient's family would like her to have knee braces and take her home, has walker to ambulate. She lives by herself with support from family members who are with her round the clock. Review of systems: as in HPI Oncology - Exam - Constitutional Vitals: Temp Pulse Resp BP Pulse Ox 97.9 F 76 17 122/81 96 11/22/16 15:44 11/22/16 15:44 11/22/16 15:44 11/22/16 15:44 11/22/16 15:44
--- NOTE | 2016-11-22 17:02 | Electrocardiograph Report ---
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
[2016-11-22] MEDS: Mirtazapine 15 MG TABLET PO SCH (21:04)
[2016-11-22] MEDS: Temazepam 15 MG CAPSULE PO SCH (21:04)
[2016-11-23 06:15] LABS: Hematocrit 34.3 % (35.3-44.9); Hemoglobin 10.9 g/dL (11.5-15.4); Mean Corpuscular HGB Conc 31.8 g/dL (31.6-35.5); Mean Corpuscular Hemoglobin 28.2 pg (28.0-33.3); Mean Corpuscular Volume 88.6 fL (83.0-100.0); Mean Platelet Volume 9.8 fL (9.4-12.4); Nucleated Red Blood Cells 0.3 /100 WBC (0); Platelet Count 297 K/mcL (140-400); Red Blood Count 3.87 M/mcL (3.82-4.97); Red Cell Distribution Width 16.2 % (11.5-14.5)
[2016-11-23] MEDS: *HR* Enoxaparin 40 MG/0.4 ML SYRINGE SQ SCH (06:15)
[2016-11-23] MEDS: levETIRAcetam 250 MG TABLET PO SCH ×2 (06:15→17:19)
[2016-11-23 06:30] LABS: BUN/Creatinine Ratio 27 (6-26); Blood Urea Nitrogen 21 mg/dL (7-20); Calcium 8.1 mg/dL (8.6-10.8); Carbon Dioxide 21 mEq/L (19-29); Chloride 112 mEq/L (98-109); Glucose 147 mg/dL (70-99); Osmolality,Calculated 296 (280-300); Potassium 4.6 mEq/L (3.5-4.5); Sodium 140 mEq/L (136-145); eGFR For African Americans > 60 (> 60); eGFR For Non-African Americans > 60 (> 60)
[2016-11-23 06:45] LABS: Anisocytosis 1+ (Not Present); Lymphocytes # 0.7 K/mcL (0.6-4.6); Monocytes # 0.9 K/mcL (0.0-1.3); Neutrophils # 5.8 K/mcL (1.6-8.9); Platelet Estimate Normal (Normal); Polychromasia 1+ (Not Present)
[2016-11-23] MEDS: Verapamil ER (24 HR) 240 MG TABLET.ER PO SCH ×2 (08:01→20:14)
[2016-11-23] MEDS: *HR* Morphine Sulfate SR (12 HR) 15 MG TABLET.ER PO SCH ×2 (08:02→20:14)
[2016-11-23] MEDS: NON-FORMULARY MEDICATION 1 EACH EACH PO SCH (08:02)
[2016-11-23] MEDS: Sennosides/Docusate Sodium TABLET PO SCH ×2 (08:02→20:13)
--- NOTE | 2016-11-23 13:30 | Palliative Progress Note ---
Date of Encounter: 11/23/16 Time of Encounter: 10:15 - Assessment and plan (1) Brain metastases Current Visit: No Status: Chronic Assessment and plan: Very little else to be done for this, in college he is following they seemed to have little to offer. (2) Advanced directives, counseling/discussion Current Visit: No Status: Acute Assessment and plan: Patient currently DNR CCA, DNI patient's goal is to return home. She does seem to be amenable to some short-term rehabilitation. However I have noted that she has been refusing her rehabilitation visits. This will make it impossible to offer her rehabilitation. [place] that they will not put her into a penitentiary, discussion with him regarding hospice, and what they are looking for with regard to hospice is 24 7 care. Assured them the 24 7 care is not available through hospice although hospice could be involved with that. Social work is working with them on an together a care plan. We will see if hospice fits into this sedations are made. 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 Qualifiers: Encounter type: initial encounter Qualified Code(s): W19.XXXA - Unspecified fall, initial encounter (4) Anorexia Current Visit: Yes Status: Chronic Assessment and plan: At least in part this is due to mouth pain will start some Magic mouthwash to see if this helps. - Time Spent With Patient Total time spent is greater than 50% in coordination of care (as documented) at patient's floor/unit and/or counseling patient: - Subjective Interval history: The patient is feeling a little bit better today. sHe is willing to consider rehabilitation. She has no specific complaint of this morning. Other than some discomfort in her mouth especially with chewing. - Constitutional Vitals: Abnormal lab results Hgb 10.9 g/dL (11.5-15.4) L 11/23/16 05:34 Hct 34.3 % (35.3-44.9) L 11/23/16 05:34 RDW 16.2 % (11.5-14.5) H 11/23/16 05:34 Immature Gran % 4.4 % (0-4) H 11/22/16 04:59 Nucleated RBCs/100 WBC 0.3 /100 WBC (0) H 11/23/16 05:34 Polychromasia 1+ (Not Present) A 11/23/16 05:34 Anisocytosis 1+ (Not Present) A 11/23/16 05:34 PT 12.3 Seconds (9.4-12.1) H 11/21/16 10:12 Potassium 4.6 mEq/L (3.5-4.5) H 11/23/16 05:34 Chloride 112 mEq/L (98-109) H 11/23/16 05:34 BUN 21 mg/dL (7-20) H 11/23/16 05:34 BUN/Creatinine Ratio 27 (6-26) H 11/23/16 05:34 Glucose 147 mg/dL (70-99) H 11/23/16 05:34 Calcium 8.1 mg/dL (8.6-10.8) L 11/23/16 05:34 Troponin I 0.04 ng/mL (0-0.03) H* 11/21/16 21:58 Ur Squamous Epith Cells Moderate per lpf (None-Few) H 11/21/16 10:59 General appearance: Present: no acute distress - Head Head exam: Present: atraumatic, normal inspection - Eye Eye exam: Present: normal appearance - ENT ENT exam: Present: mucous membranes moist (Gums are tender, however I do not see any actual signs of thrush.) - Neck Neck exam: Present: normal inspection - Respiratory Respiratory exam: Present: decreased breath sounds - Cardiovascular Cardiovascular exam: Present: RRR - GI/Abdominal GI/Abdominal exam: Present: normal bowel sounds, soft. Absent: tenderness - Extremities Exam Extremities exam: Present: normal inspection. Absent: tenderness (This is noted on the right side) - Neurological Exam Neurological exam: Present: alert, motor sensory deficit (Right leg numbness). Absent: no focal deficits (Numbness is noted in the right leg) - Psychiatric Psychiatric exam: Present: normal affect, normal mood. Absent: agitated, anxious - Skin Skin exam: Present: dry, warm Palliative Quality Palliative Quality: Screen for Code Status: Yes, Screen for Goals of Care: Yes, Screen for Pain: Yes, If Pain Regimen Started, Initiate Bowel Regimen: Yes, Screen for Nausea/Vomitting: Yes - Labs CBC & Chem 7: 11/23/16 05:34 11/23/16 05:34 Labs: Laboratory Results - last 24 hr 11/23/16 11/23/16 05:34 05:34 WBC 7.4 RBC 3.87 Hgb 10.9 L Hct 34.3 L MCV 88.6 MCH 28.2 MCHC 31.8 RDW 16.2 H Plt Count 297 MPV 9.8 Seg Neutrophils % 78.0 Lymphocytes % 10.0 Monocytes % 12.0 Neutrophils # 5.8 Lymphocytes # 0.7 Monocytes # 0.9 Nucleated RBCs/100 WBC 0.3 H Platelet Estimate Normal Polychromasia 1+ A Anisocytosis 1+ A Sodium 140 Potassium 4.6 H Chloride 112 H Carbon Dioxide 21 BUN 21 H Creatinine 0.79 Est GFR ( Amer) > 60 Est GFR (Non-Af Amer) > 60 BUN/Creatinine Ratio 27 H Glucose 147 H Calculated Osmolality 296 Calcium 8.1 L - ABG Interpretation ABG results: PT/INR, D-dimer PT 12.3 Seconds (9.4-12.1) H 11/21/16 10:12 Consult Discharge Plan - Plan Referrals: José Malhotra MD [Non-Partnered Physician] - 12/02/16 10:00 am
[2016-11-23] MEDS: Magic Mouthwash 10 ML UD Cup PO SCH (17:36)
--- NOTE | 2016-11-23 19:34 | Internal Med Progress Note ---
Date of Encounter: 11/23/16 Time of Encounter: 10:00 - Assessment and plan (1) Acute kidney injury Current Visit: No Status: Resolved Assessment and plan: Improved after hydration (2) Dehydration Current Visit: No Status: Resolved Assessment and plan: Improved. Continue hydration (3) DVT prophylaxis Current Visit: No Status: Acute Assessment and plan: Subcutaneous Lovenox (4) CAD (coronary artery disease) Current Visit: No Status: Chronic Assessment and plan: patient denies chest pain or shortness of breath. Continue home medications Qualifiers: Coronary Disease-Associated Artery/Lesion type: [place] artery [place] vs. transplanted heart: [place] heart Associated angina: without angina Qualified Code(s): I25.10 - Atherosclerotic heart disease of [place] coronary artery without angina pectoris (5) Hypothyroidism Current Visit: No Status: Chronic Assessment and plan: TSH checked last month, normal. Continue home medication Qualifiers: Hypothyroidism type: acquired Qualified Code(s): E03.9 - Hypothyroidism, unspecified (6) Hypertension Current Visit: No Status: Chronic Assessment and plan: Controlled. We will continue to trend and adjust medications as indicated. Qualifiers: Hypertension type: essential hypertension Qualified Code(s): I10 - Essential (primary) hypertension (7) Mass of lower lobe of left lung Current Visit: No Status: Chronic Assessment and plan: Stage IV lung cancer. Patient and the family want palliative care and hospice service. No further treatment for cancer (8) Advanced directives, counseling/discussion Current Visit: No Status: Acute Assessment and plan: Palliative care on case. Recommendation will be followed (9) Fall Current Visit: Yes Status: Acute Assessment and plan: Likely due to brain metastasis. No further examination because patient wants hospice service Qualifiers: Encounter type: initial encounter Qualified Code(s): W19.XXXA - Unspecified fall, initial encounter - Time Spent With Patient 25 - 35 minutes - Subjective Interval history: Patient is a 81-year-old female admitted for Fall. 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 I saw and examined the patient. She said that she feels fine. No headache or dizziness. Vitals are stable. Palliative care on case, patient and the family decided to pursue hospice service. No further aggressive diagnostic or therapeutic management. Waiting for placement. - Constitutional Vitals: Temp Pulse Resp BP Pulse Ox 97.3 F L 83 16 132/77 95 11/23/16 19:07 11/23/16 19:07 11/23/16 19:07 11/23/16 19:07 11/23/16 19:07 General appearance: Present: A&O X 3, no acute distress, answers questions appropriately - Head Head exam: Present: atraumatic, normocephalic - Eye Eye exam: Present: PERRL, conjuntiva pink, sclera anicteric Pupils: Present: PERRL - Neck Neck exam general surgery: Present: supple, trachea midline. Absent: lymphadenopathy - Respiratory Respiratory exam: Present: CTAB. Absent: accessory muscle use, rales, rhonchi, wheezes - Cardiovascular Cardiovascular exam: Present: RRR, +S1, +S2. Absent: diastolic murmur, gallop, rubs, systolic murmur - GI/Abdominal GI/Abdominal exam: Present: normal bowel sounds, soft, no peritoneal signs. Absent: distended, tenderness - Extremities Exam Extremities exam: Present: warm, radial pulses palpable and symetrical. Absent : calf tenderness, cyanotic, pedal edema - Neurological Exam Neurological exam: Present: CN II-XII intact, oriented X3, no focal deficits. Absent: pronater drift, facial droop, speech deficit - Skin Skin exam: Present: dry, intact Internal Medicine: Result - Labs CBC & Chem 7: 11/23/16 05:34 11/23/16 05:34 Labs: Short CBC 11/23/16 Range/Units 05:34 WBC 7.4 (4.3-11.1) K/mcL Hgb 10.9 L (11.5-15.4) g/dL Hct 34.3 L (35.3-44.9) % Plt Count 297 (140-400) K/mcL Neutrophils # 5.8 (1.6-8.9) K/mcL BMP 11/23/16 05:34 Sodium 140 Potassium 4.6 H Chloride 112 H Carbon Dioxide 21 BUN 21 H Creatinine 0.79 Glucose 147 H Calcium 8.1 L - ABG Interpretation ABG results: PT/INR, D-dimer PT 12.3 Seconds (9.4-12.1) H 11/21/16 10:12 Consult Discharge Plan - Plan Referrals: José Malhotra MD [Non-Partnered Physician] - 12/02/16 10:00 am
[2016-11-23] MEDS: 0.9 % Sodium Chloride 1,000 ML IVC SCH (19:52)
[2016-11-23] MEDS: Temazepam 15 MG CAPSULE PO SCH (20:13)
[2016-11-23] MEDS: Mirtazapine 15 MG TABLET PO SCH (20:14)
[2016-11-24] MEDS: 0.9 % Sodium Chloride 1,000 ML IVC SCH (06:03)
[2016-11-24] MEDS: levETIRAcetam 250 MG TABLET PO SCH ×2 (06:05→18:57)
[2016-11-24] MEDS: Magic Mouthwash 10 ML UD Cup PO SCH ×3 (06:06→18:57)
[2016-11-24] MEDS: *HR* Enoxaparin 40 MG/0.4 ML SYRINGE SQ SCH (06:06)
--- NOTE | 2016-11-24 09:09 | Palliative Progress Note ---
Date of Encounter: 11/24/16 Time of Encounter: 08:45 - Assessment and plan (1) Brain metastases Current Visit: No Status: Chronic Assessment and plan: Very little else to be done for this, oncology is following they seemed to have little to offer. (2) Advanced directives, counseling/discussion Current Visit: No Status: Acute Assessment and plan: Patient currently DNR CCA, DNI patient's goal is to return home. She does seem to be amenable to some short-term rehabilitation. The patient assures me that she will work with PT and OT to the best of her ability. Not how the patient does with this will depend on those out for rehabilitation and then hospice orders directly to hospice. Social work is working on this currently. 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 Qualifiers: Encounter type: initial encounter Qualified Code(s): W19.XXXA - Unspecified fall, initial encounter (4) Anorexia Current Visit: Yes Status: Chronic Assessment and plan: At least in part this is due to mouth pain patient states that the Magic mouthwash helped tremendously. I did note that she ate 100% of her meal last night. I am not quite sure why there was a medication this morning, however I have discussed with the patient's nurses and they would not encourage her to use it. I will also add in some Zantac for her stomach, I will not use Prilosec at this time because this will interfere with her Plavix. Patient transitions to hospice Plavix may no longer be necessary and Prilosec might be the preferred drug. We will follow. - Time Spent With Patient Total time spent is greater than 50% in coordination of care (as documented) at patient's floor/unit and/or counseling patient: - Subjective Interval history: The patient is feeling a little bit better today. sHe dates that she would like rehabilitation. She does agree to work with the PT and OT folks. Magic mouthwash worked wonderfully yesterday out her to eat well. We will continue to do this. We will also add in some medication for heartburn if she is having at least a little bit of heartburn when she eats. Medications otherwise working well for her. - Constitutional Vitals: Abnormal lab results Hgb 10.9 g/dL (11.5-15.4) L 11/23/16 05:34 Hct 34.3 % (35.3-44.9) L 11/23/16 05:34 RDW 16.2 % (11.5-14.5) H 11/23/16 05:34 Immature Gran % 4.4 % (0-4) H 11/22/16 04:59 Nucleated RBCs/100 WBC 0.3 /100 WBC (0) H 11/23/16 05:34 Polychromasia 1+ (Not Present) A 11/23/16 05:34 Anisocytosis 1+ (Not Present) A 11/23/16 05:34 PT 12.3 Seconds (9.4-12.1) H 11/21/16 10:12 Potassium 4.6 mEq/L (3.5-4.5) H 11/23/16 05:34 Chloride 112 mEq/L (98-109) H 11/23/16 05:34 BUN 21 mg/dL (7-20) H 11/23/16 05:34 BUN/Creatinine Ratio 27 (6-26) H 11/23/16 05:34 Glucose 147 mg/dL (70-99) H 11/23/16 05:34 Calcium 8.1 mg/dL (8.6-10.8) L 11/23/16 05:34 Troponin I 0.04 ng/mL (0-0.03) H* 11/21/16 21:58 Ur Squamous Epith Cells Moderate per lpf (None-Few) H 11/21/16 10:59 General appearance: Present: no acute distress - Head Head exam: Present: atraumatic, normal inspection - Eye Eye exam: Present: normal appearance - ENT ENT exam: Present: mucous membranes moist - Respiratory Respiratory exam: Present: CTAB - Cardiovascular Cardiovascular exam: Present: irregular rhythm - GI/Abdominal GI/Abdominal exam: Present: normal bowel sounds, soft. Absent: tenderness - Extremities Exam Extremities exam: Present: normal inspection. Absent: pedal edema, tenderness ( Numbness in the right side is noted) - Neurological Exam Neurological exam: Present: alert, motor sensory deficit (Numbness right leg), oriented X3 - Psychiatric Psychiatric exam: Present: normal affect, normal mood. Absent: agitated, anxious - Skin Skin exam: Present: dry, warm Palliative Quality Palliative Quality: Screen for Code Status: Yes, Screen for Goals of Care: Yes, Screen for Pain: Yes, If Pain Regimen Started, Initiate Bowel Regimen: Yes, Screen for Nausea/Vomitting: Yes - Labs CBC & Chem 7: 11/23/16 05:34 11/23/16 05:34 - ABG Interpretation ABG results: PT/INR, D-dimer PT 12.3 Seconds (9.4-12.1) H 11/21/16 10:12 Consult Discharge Plan - Plan Referrals: José Malhotra MD [Non-Partnered Physician] - 12/02/16 10:00 am
[2016-11-24] MEDS: Sennosides/Docusate Sodium TABLET PO SCH ×2 (09:27→20:03)
[2016-11-24] MEDS: Verapamil ER (24 HR) 240 MG TABLET.ER PO SCH ×2 (09:28→20:08)
[2016-11-24] MEDS: *HR* Morphine Sulfate SR (12 HR) 15 MG TABLET.ER PO SCH ×2 (09:28→20:08)
[2016-11-24] MEDS: NON-FORMULARY MEDICATION 1 EACH EACH PO SCH (09:28)
--- NOTE | 2016-11-24 18:57 | Internal Med Progress Note ---
Date of Encounter: 11/24/16 Time of Encounter: 10:00 - Assessment and plan (1) Acute kidney injury Current Visit: No Status: Resolved Assessment and plan: Improved after hydration (2) Dehydration Current Visit: No Status: Resolved Assessment and plan: Improved. Continue hydration (3) DVT prophylaxis Current Visit: No Status: Acute Assessment and plan: Subcutaneous Lovenox (4) CAD (coronary artery disease) Current Visit: No Status: Chronic Qualifiers: Coronary Disease-Associated Artery/Lesion type: [place] artery [place] vs. transplanted heart: [place] heart Associated angina: without angina Qualified Code(s): I25.10 - Atherosclerotic heart disease of [place] coronary artery without angina pectoris (5) Hypothyroidism Current Visit: No Status: Chronic Assessment and plan: TSH checked last month, normal. Continue home medication Qualifiers: Hypothyroidism type: acquired Qualified Code(s): E03.9 - Hypothyroidism, unspecified (6) Hypertension Current Visit: No Status: Chronic Assessment and plan: Controlled. We will continue to trend and adjust medications as indicated. Qualifiers: Hypertension type: essential hypertension Qualified Code(s): I10 - Essential (primary) hypertension (7) Mass of lower lobe of left lung Current Visit: No Status: Chronic Assessment and plan: Stage IV lung cancer. Patient and the family want palliative care and hospice service. No further treatment for cancer (8) Advanced directives, counseling/discussion Current Visit: No Status: Acute Assessment and plan: Palliative care on case. Recommendation will be followed (9) Fall Current Visit: Yes Status: Acute Assessment and plan: Likely due to brain metastasis. No further examination because patient wants hospice service Qualifiers: Encounter type: initial encounter Qualified Code(s): W19.XXXA - Unspecified fall, initial encounter - Time Spent With Patient 25 - 35 minutes - Subjective Interval history: Patient is a 81-year-old female admitted for Fall. 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 I saw and examined the patient. She said that she feels fine. No headache or dizziness. Vitals are stable. Palliative care on case, patient and the family decided to pursue hospice service. No further aggressive diagnostic or therapeutic management. Waiting for placement. - Constitutional Vitals: Temp Pulse Resp BP Pulse Ox 98.0 F 73 15 149/76 93 11/24/16 14:55 11/24/16 14:55 11/24/16 14:55 11/24/16 14:55 11/24/16 14:55 General appearance: Present: A&O X 3, no acute distress, answers questions appropriately - Head Head exam: Present: atraumatic, normocephalic - Eye Eye exam: Present: PERRL, conjuntiva pink, sclera anicteric Pupils: Present: PERRL - Neck Neck exam general surgery: Present: supple, trachea midline. Absent: lymphadenopathy - Respiratory Respiratory exam: Present: CTAB. Absent: accessory muscle use, rales, rhonchi, wheezes - Cardiovascular Cardiovascular exam: Present: RRR, +S1, +S2. Absent: diastolic murmur, gallop, rubs, systolic murmur - GI/Abdominal GI/Abdominal exam: Present: normal bowel sounds, soft, no peritoneal signs. Absent: distended, tenderness - Extremities Exam Extremities exam: Present: warm, radial pulses palpable and symetrical. Absent : calf tenderness, cyanotic, pedal edema - Neurological Exam Neurological exam: Present: CN II-XII intact, oriented X3, no focal deficits. Absent: pronater drift, facial droop, speech deficit - Skin Skin exam: Present: dry, intact Internal Medicine: Result - Labs CBC & Chem 7: 11/23/16 05:34 11/23/16 05:34 - ABG Interpretation ABG results: PT/INR, D-dimer PT 12.3 Seconds (9.4-12.1) H 11/21/16 10:12 Consult Discharge Plan - Plan Referrals: José Malhotra MD [Non-Partnered Physician] - 12/02/16 10:00 am
[2016-11-24] MEDS: Temazepam 15 MG CAPSULE PO SCH (20:03)
[2016-11-24] MEDS: Mirtazapine 15 MG TABLET PO SCH (20:03)
[2016-11-25] MEDS: *HR* Enoxaparin 40 MG/0.4 ML SYRINGE SQ SCH (05:58)
[2016-11-25] MEDS: levETIRAcetam 250 MG TABLET PO SCH (05:58)
[2016-11-25] MEDS: Magic Mouthwash 10 ML UD Cup PO SCH ×2 (05:59→12:22)
[2016-11-25] MEDS: 0.9 % Sodium Chloride 1,000 ML IVC SCH ×2 (07:25→12:22)
--- NOTE | 2016-11-25 09:30 | Palliative Progress Note ---
Date of Encounter: 11/25/16 Time of Encounter: 09:15 - Assessment and plan (1) Brain metastases Current Visit: No Status: Chronic Assessment and plan: Very little else to be done for this, oncology is following they seemed to have little to offer. (2) Advanced directives, counseling/discussion Current Visit: No Status: Acute Assessment and plan: Patient currently DNR CCA, DNI patient's goal is to return home. She will go out today to short-term rehabilitation and then return home she is hospice eligible after the rehabilitation. 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 Qualifiers: Encounter type: initial encounter Qualified Code(s): W19.XXXA - Unspecified fall, initial encounter (4) Anorexia Current Visit: Yes Status: Chronic Assessment and plan: At least in part this is due to mouth pain patient states that the Magic mouthwash helped tremendously. I did note that she ate 100% of her meal last night. I am not quite sure why there was a medication this morning, however I have discussed with the patient's nurses and they would not encourage her to use it. I will also add in some Zantac for her stomach, I will not use Prilosec at this time because this will interfere with her Plavix. Patient transitions to hospice Plavix may no longer be necessary and Prilosec might be the preferred drug. We will follow. - Time Spent With Patient Total time spent is greater than 50% in coordination of care (as documented) at patient's floor/unit and/or counseling patient: - Subjective Interval history: The patient is feeling a little bit better today. sHe dates that she would like rehabilitation. She does agree to work with the PT and OT folks. Magic mouthwash worked wonderfully and continues to work well. - Constitutional Vitals: Abnormal lab results Hgb 10.9 g/dL (11.5-15.4) L 11/23/16 05:34 Hct 34.3 % (35.3-44.9) L 11/23/16 05:34 RDW 16.2 % (11.5-14.5) H 11/23/16 05:34 Immature Gran % 4.4 % (0-4) H 11/22/16 04:59 Nucleated RBCs/100 WBC 0.3 /100 WBC (0) H 11/23/16 05:34 Polychromasia 1+ (Not Present) A 11/23/16 05:34 Anisocytosis 1+ (Not Present) A 11/23/16 05:34 PT 12.3 Seconds (9.4-12.1) H 11/21/16 10:12 Potassium 4.6 mEq/L (3.5-4.5) H 11/23/16 05:34 Chloride 112 mEq/L (98-109) H 11/23/16 05:34 BUN 21 mg/dL (7-20) H 11/23/16 05:34 BUN/Creatinine Ratio 27 (6-26) H 11/23/16 05:34 Glucose 147 mg/dL (70-99) H 11/23/16 05:34 Calcium 8.1 mg/dL (8.6-10.8) L 11/23/16 05:34 Troponin I 0.04 ng/mL (0-0.03) H* 11/21/16 21:58 Ur Squamous Epith Cells Moderate per lpf (None-Few) H 11/21/16 10:59 General appearance: Present: no acute distress - Head Head exam: Present: atraumatic, normal inspection - Eye Eye exam: Present: normal appearance - ENT ENT exam: Present: mucous membranes moist - Respiratory Respiratory exam: Present: decreased breath sounds - Cardiovascular Cardiovascular exam: Present: RRR - GI/Abdominal GI/Abdominal exam: Present: normal bowel sounds, soft. Absent: tenderness - Extremities Exam Extremities exam: Present: normal inspection. Absent: tenderness - Neurological Exam Neurological exam: Present: alert - Psychiatric Psychiatric exam: Present: normal affect, normal mood. Absent: agitated, anxious - Skin Skin exam: Present: dry, warm Palliative Quality Palliative Quality: Screen for Code Status: Yes, Screen for Goals of Care: Yes, Screen for Pain: Yes, If Pain Regimen Started, Initiate Bowel Regimen: Yes, Screen for Nausea/Vomitting: Yes - Labs CBC & Chem 7: 11/23/16 05:34 11/23/16 05:34 - ABG Interpretation ABG results: PT/INR, D-dimer PT 12.3 Seconds (9.4-12.1) H 11/21/16 10:12 Consult Discharge Plan - Plan Referrals: José Malhotra MD [Non-Partnered Physician] - 12/02/16 10:00 am
[2016-11-25] MEDS: Verapamil ER (24 HR) 240 MG TABLET.ER PO SCH (09:42)
[2016-11-25] MEDS: Sennosides/Docusate Sodium TABLET PO SCH (09:42)
[2016-11-25] MEDS: *HR* Morphine Sulfate SR (12 HR) 15 MG TABLET.ER PO SCH (09:42)
--- NOTE | 2016-11-25 10:33 | Discharge Summary ---
Date of Encounter: 11/25/16 Time of Encounter: 09:00 - Discharge Diagnosis (1) Acute kidney injury Priority: Primary Status: Resolved (2) Dehydration Priority: Primary Status: Resolved (3) DVT prophylaxis Priority: Secondary Status: Acute (4) CAD (coronary artery disease) Priority: Secondary Status: Chronic Qualifiers: Coronary Disease-Associated Artery/Lesion type: [place] artery [place] vs. transplanted heart: [place] heart Associated angina: without angina Qualified Code(s): I25.10 - Atherosclerotic heart disease of [place] coronary artery without angina pectoris (5) Hypothyroidism Priority: Secondary Status: Chronic Qualifiers: Hypothyroidism type: acquired Qualified Code(s): E03.9 - Hypothyroidism, unspecified (6) Hypertension Priority: Secondary Status: Chronic Qualifiers: Hypertension type: essential hypertension Qualified Code(s): I10 - Essential (primary) hypertension (7) Mass of lower lobe of left lung Priority: Primary Status: Chronic (8) Advanced directives, counseling/discussion Priority: Primary Status: Acute (9) Fall Priority: Primary Status: Acute Qualifiers: Encounter type: initial encounter Qualified Code(s): W19.XXXA - Unspecified fall, initial encounter - Discharge Medications Prescriptions: Hydromorphone HCl [Dilaudid] 2 mg PO Q4H PRN #20 tablet PRN Reason: Pain Morphine Sulfate SR (12 HR) [MS Contin] 15 mg PO BID #20 tablet.er Home Medications: Acetaminophen [Tylenol] 500 mg PO HS 09/07/16 [History] Clopidogrel [Plavix] 75 mg PO DAILY 09/07/16 [History] Levothyroxine Sodium 75 mcg PO QAM 09/07/16 [History] Nitroglycerin [Nitrostat] 0.4 mg SL Q5M PRN 09/07/16 [History] Pravastatin Sodium 80 mg PO DAILY 09/07/16 [History] Verapamil ER (24 HR) [[place] SR] 240 mg PO BID 09/07/16 [History] Meclizine [Antivert] 12.5 mg PO DAILY 10/15/16 [History] Zolpidem [Ambien] 5 mg PO HS PRN #30 tablet 10/15/16 [Rx] Dexamethasone [Decadron] 4 mg PO TID #90 tab 10/25/16 [Rx] Docusate [Colace] 200 mg PO HS 11/01/16 [History] Ezetimibe [Zetia] 10 mg PO DAILY 11/04/16 [History] Ipratropium/Albuterol Neb [Duoneb] 3 ml IH Q6HR PRN 11/04/16 [History] Temazepam [Restoril] 30 mg PO HS 11/04/16 [History] levETIRAcetam [Keppra] 500 mg PO Q12HR #60 tablet 11/08/16 [Rx] Hydromorphone HCl [Dilaudid] 2 mg PO Q4H PRN #20 tablet 11/25/16 [Rx] Morphine Sulfate SR (12 HR) [MS Contin] 15 mg PO BID #20 tablet.er 11/25/16 [Rx] Allergies/Adverse Reactions: Allergies Oxycodone [From OxyContin] Adverse Reaction (Verified 11/01/16 12:22) See Comments personality changes "becomes mean" Date of admission: 11/22/16 12:48 Primary care physician: Jacob Bernstein MD Consults: 11/22/16 12:51 Consult to Nutrition [CONS] Routine Comment: end stage CA-anorexic; doesn;t like ensure anymore Consulting Provider: NUTRITION Reason for Dietary Consult: PO Supplementation Consult to Pastoral Services [CONS] Routine Comment: Discharging clinician: Safia Patterson Anticipated date of discharge: 11/25/16 - Patient Status Disposition: Transfer Inpatient Rehab Fac Condition: Fair Overall status at discharge: patient is back to baseline - Discharge Instructions Follow Up With: José Malhotra MD [Non-Partnered Physician] - 12/02/16 10:00 am - Diet and Activity Activity: as per physical therapy Diet: advance to your usual diet Interval History: Ms. Ellington is a 81 year old female with hypertension, hyperlipidemia, coronary artery disease, COPD, metastatic lung cancer with metastases to the brain presented to the emergency department today with complaints of fall. Patient reported she got up to use the commode next to her bed and fell. She lives alone and had to wait for one of her care to come to check on her and was down for approximately 4 hours, unable to get up. Patient reports she is falling frequently at home. Her right lower leg she describes as numb and paralyzed which has been going on for several months now and is thought to be related to her brain metastasis. She denies any lightheadedness, fainting, dizziness, headache. She denies any palpitations, nausea, vomiting, fever, chills, sweats. She reports occasional chest pain, and shortness of breath, but she says this is not any worse than her usual. Evaluation in emergency Department included CT of the head which redemonstrated brain metastasis not significantly changed from previous examination, CT of the cervical, thoracic and lumbar spine showed no acute abnormality. CT of the abdomen and pelvis redemonstrated known malignancy and left lower lobe of lung showed questionable metastasis to right lobe of liver. On exam, patient is alert and oriented, in no acute distress. Hospital course: Ms. Ellington is a 81 year old female was admitted as Fall. Patient has a history of left lower lobe lung cancer, head CT suspected brain metastasis. Oncology and palliative care consult was called. Discussed that with the patient and the family, they do not want to have further aggressive tests or management. Patient also has dehydration on admission, which is corrected by hydration. Patient was discharged to rehabilitation now and transfer to hospice after rehabilitation. Saw and examined the patient today. She is awake alert, oriented 3. In no acute distress. Vitals are stable. Stable to transfer to rehabilitation. - Time Spent with Patient Total time spent providing and/or coordinating discharge services: 25 minutes Less than 30 minutes - Constitutional Vitals: Temp Pulse Resp BP Pulse Ox 98.1 F 89 14 162/94 96 11/25/16 08:00 11/25/16 08:00 11/25/16 08:00 11/25/16 08:00 11/25/16 08:00 General appearance: Present: A&O X 3, no acute distress, answers questions appropriately - Head Head exam: Present: atraumatic, normocephalic - Eye Eye exam: Present: PERRL, conjuntiva pink, sclera anicteric Pupils: Present: PERRL - Neck Neck exam general surgery: Present: supple, trachea midline. Absent: lymphadenopathy - Respiratory Respiratory exam: Present: CTAB. Absent: accessory muscle use, rales, rhonchi, wheezes - Cardiovascular Cardiovascular exam: Present: RRR, +S1, +S2. Absent: diastolic murmur, gallop, rubs, systolic murmur - GI/Abdominal GI/Abdominal exam: Present: normal bowel sounds, soft, no peritoneal signs. Absent: distended, tenderness - Extremities Exam Extremities exam: Present: warm, radial pulses palpable and symetrical. Absent : calf tenderness, cyanotic, pedal edema - Neurological Exam Neurological exam: Present: CN II-XII intact, oriented X3, no focal deficits. Absent: pronater drift, facial droop, speech deficit - Skin Skin exam: Present: dry, intact
--- NOTE | 2016-11-25 10:41 | Physician Discharge Referral ---
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: Chronic (8) Advanced directives, counseling/discussion Status: Acute (9) Fall Status: Acute - Transfer Medications Prescriptions: Hydromorphone HCl [Dilaudid] 2 mg PO Q4H PRN #20 tablet PRN Reason: Pain Morphine Sulfate SR (12 HR) [MS Contin] 15 mg PO BID #20 tablet.er Home Medications: Acetaminophen [Tylenol] 500 mg PO HS 09/07/16 [History] Clopidogrel [Plavix] 75 mg PO DAILY 09/07/16 [History] Levothyroxine Sodium 75 mcg PO QAM 09/07/16 [History] Nitroglycerin [Nitrostat] 0.4 mg SL Q5M PRN 09/07/16 [History] Pravastatin Sodium 80 mg PO DAILY 09/07/16 [History] Verapamil ER (24 HR) [Calan SR] 240 mg PO BID 09/07/16 [History] Meclizine [Antivert] 12.5 mg PO DAILY 10/15/16 [History] Zolpidem [Ambien] 5 mg PO HS PRN #30 tablet 10/15/16 [Rx] Dexamethasone [Decadron] 4 mg PO TID #90 tab 10/25/16 [Rx] Docusate [Colace] 200 mg PO HS 11/01/16 [History] Ezetimibe [Zetia] 10 mg PO DAILY 11/04/16 [History] Ipratropium/Albuterol Neb [Duoneb] 3 ml IH Q6HR PRN 11/04/16 [History] Temazepam [Restoril] 30 mg PO HS 11/04/16 [History] levETIRAcetam [Keppra] 500 mg PO Q12HR #60 tablet 11/08/16 [Rx] Hydromorphone HCl [Dilaudid] 2 mg PO Q4H PRN #20 tablet 11/25/16 [Rx] Morphine Sulfate SR (12 HR) [MS Contin] 15 mg PO BID #20 tablet.er 11/25/16 [Rx] Allergies/Adverse Reactions: Allergies Oxycodone [From OxyContin] Adverse Reaction (Verified 11/01/16 12:22) See Comments personality changes "becomes mean" - Respiratory Orders Smoking Cessation: Smoking cessation has been advised. For more information, call the [place] Tobacco Quit Line at 9-648-VIRM-NOW. - Advance Directives Code Status: DNR-Arrest/Don't Intubate - Rehabiliation Orders Rehab Potential: Fair Rehab Orders: Evaluation for Physical Therapy, Evaluation for Occupational Therapy - Diet Orders Regular CERTIFICATION: I certify that the transfer of the above named patient to an Extended Care Facility is necessary for the continuing treatment of the diagnosis listed. The above information is true and accurate reflection of patient's current condition. Confidential - Redisclosure prohibited without a patient's written consent.
[2016-11-25 15:24] VITALS: BP 148/84
== END 2016-11-25 16:34 | DRG 683 ==
LOC: 3BNU 09:51 → EMEROO 09:51 → 3BNU 13:47 → SUATTDRO 11-22 12:48 → 3BNU 11-22 17:58
PROVIDERS: ADMIT Internal Medicine Sleep Medicine; ATTEND Internal Medicine